=== PATIENT | male | born 1985 | race Caucasian/White ===

== ENCOUNTER 2020-10-06 06:57 | Inpatient (IN) | payer SELFPAY ==
[2020-10-06] VITALS (42 sets, daily range): BP systolic 90–180; BP diastolic 56–124; PULSE 74–142; RESP 15–33; TEMP 36.7–36.9; O2SAT 96–100; BMI 25.7
--- NOTE | ~2020-10-06 | CT_ITS ---
EXAMINATION: CT brain wo con EXAM DATE: 10/06/2020 08:14 INDICATION: hallucinations, change in behavior, headache . TECHNIQUE: Spiral CT of the head was performed without contrast. Axial, coronal and sagittal images were reviewed. The dose-length product (DLP) for this examination was 605.33 mGy-cm. The exposure w as tailored according to patient size, and iterative reconstruction (ASIR) was used as additional dos e reduction technique. There is no prior study for comparison. FINDINGS: There is no acute intraparenchymal hemorrhage. No evidence of intraparenchymal brain mass lesion. No evidence of acute infarction. There is no mass effect or midline shift. The ventricles are normal in size. There are no extra-axial collections. There are no acute calvarial fractures. T he orbits are unremarkable. Soft tissue is unremarkable. The visualized sinuses and mastoid air aman ls are well aerated. IMPRESSION: 1. No acute intracranial findings. Reviewed, dictated and finalized at location A. LABOR DELIVERY
--- NOTE | ~2020-10-06 | US_ITS ---
EXAMINATION: US abdomen limited EXAM DATE: 10/07/2020 08:56 INDICATION: Elevated liver function tests. TECHNIQUE: Multiple grayscale and Doppler images of the abdomen right upper quadrant were obtained (b y a technologist who performed the scan) and subsequently reviewed. There is no prior study for aline enriquez. FINDINGS: The pancreatic head and body are normal in appearance. The pancreatic tail is not visualized. There is echogenic liver parenchyma, hepatic steatosis. There are no focal liver lesions identified. Th ere is no evidence of intrahepatic biliary duct dilation. Portal venous flow was seen in the hepatop edal, normal direction and has normal Doppler waveform. No right-sided hydronephrosis. Common bile duct measures 3 mm, which is normal. Gallbladder is moderately distended. There is no cho lelithiasis but there is evidence of gallbladder debris. There is a small anechoic pocket between the gallbladder and liver margin, could be a fold in the gallbladder. Pericholecystic fluid typically no t this well contained. Technologist performing exam reports patient did not demonstrate sonographic M urphy's sign. Please note that this sign is less reliable in patients who have received pain medicat ion. IMPRESSION: 1. Distended gallbladder with debris but no wall thickening. Gallbladder fold versus contained peric holecystic fluid. No sonographic Paris's sign or biliary dilation. 2. Hepatic steatosis. Reviewed, dictated and finalized at location A. LOPMENT COACH IMPRESSION: 1. Distended gallbladder with debris but no wall thickening. Gallbladder fold versus contained pericholecystic fluid. No sonographic Paris's sign or biliary dilation. 2. Hepatic steatosis.
--- NOTE | ~2020-10-06 | XR_ITS ---
EXAMINATION: XR chest 1V portable EXAM DATE: 10/06/2020 07:58 INDICATION: Change in behavior. Hallucinations. Headache. TECHNIQUE: Portable AP frontal chest x-ray was obtained. There is no prior study for comparison. FINDINGS: The lungs are clear. There are no pleural effusions. The cardiomediastinal silhouette is within normal limits. There is no pneumothorax suspected. The bones and soft tissues are unremarkab le. IMPRESSION: Normal chest x-ray exam. Reviewed, dictated and finalized at location A. ENFORCEMENT AGENT IMPRESSION: Normal chest x-ray exam.
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
--- NOTE | 2020-10-06 07:30 | ECG_ITS ---
Measurements Intervals Gardner Rate: 119 P: 67 CO: 152 QRS: 38 QRSD: 87 T: 36 QT: 344 QTc: 485 Interpretive Statements SINUS TACHYCARDIA DELAYED PRECORDIAL R/S TRANSITION NONSPECIFIC T-WAVE ABNORMALITY- INF/HIGH LAT LEADS BASELINE ARTIFACT- II, III ABNORMAL ECG Electronically Signed On 10-06-2020 11:14:51 DIRECTOR [employer]OPH[employer]ORATORY by Kermit Jones D.O.
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
[2020-10-06] MEDS: SODIUM CHLORIDE 0.9% IV 1,000 ML 999 ML IV CONT ×3 (07:47→17:01)
[2020-10-06 07:54] LABS: Basophils Percent Auto 0.4 % (0.2-1.2); Eosinophils Percent Auto 0.2 % (0-4.4); Hematocrit 42.2 % (42.0-52.0); Hemoglobin 15.1 g/dL (14.0-18.0); Immature Granulocyte Absolute 0.03 K/mm3 (0.00-0.031); Immature Granulocyte Percent A 0.3 % (0-0.5); Lymphocytes Absolute Auto 1.46 K/mm3 (0.9-3.2); Lymphocytes Percent Auto 15.7 % (18.3-44.2); Mean Corpuscular HGB Conc 35.8 g/dl (32-36); Mean Corpuscular Hemoglobin 33.9 pg (26-34); Mean Corpuscular Volume 94.6 fl (80-100); Mean Platelet Volume 10.9 fl (7.4-10.4); Monocytes Percent Auto 10.9 % (2.6-8.5); Neutrophils Absolute Auto 6.7 K/mm3 (1.3-6.7); Neutrophils Percent Auto 72.5 % (45.5-73.1); Platelet Count Result 130 k/mm3 (150-375); Red Blood Count 4.46 M/mm3 (4.6-6.20); Red Cell Distribution Width 12.1 % (11.5-14.5); White Blood Count 9.3 K/mm3 (4.5-10.0)
[2020-10-06 07:58] LABS: Add Urine Microscopic? YES; Appearance Urine Clear (Clear); Bacteria Urine Trace /hpf; Bilirubin Urine Negative (Negative); Blood Urine 1+ (Negative); Color Urine Yellow (Yellow); Glucose Urine UA Negative (Negative); Hyaline Casts Urine 20-29 /lpf; Ketones Urine Trace mg/dL (Negative); Leukocyte Esterase Ur Negative LEU/UL (Negative); Mucus Urine Rare /lpf; Nitrate Urine Negative (Negative); Protein Urine Negative (Negative); RBC Urine 0-2 /hpf (0-2); Specific Grav Ur 1.008 (1.001-1.035); Urobilinogen Urine Negative mg/dL (<2.0); WBC Urine 0-3 /hpf
[2020-10-06 08:00] LABS: Lactic Acid Reflex 1.9 mmol/L (0.7-2.1)
[2020-10-06 08:02] LABS: Alanine Aminotransferase 118 U/L (4-50); Albumin Level 4.7 g/dL (3.5-5.1); Alkaline Phosphatase 138 U/L (38-126); Anion Gap 20 mmol/L (8-16); Aspartate Amino Transferase 331 U/L (17-59); Bilirubin,Total 2.7 mg/dL (0.2-1.3); Blood Urea Nitrogen 26 mg/dL (9-20); Calcium 9.6 mg/dL (8.4-10.2); Carbon Dioxide 24 mmol/L (22-30); Chloride 90 mmol/L (98-107); Estimated CRCL calculation 89 ml/min; Estimated Glomerular Filt Rate > 60; Glucose 113 mg/dL (75-110); Lipase 392 U/L (23-300); Magnesium 1.4 mg/dL (1.6-2.3); Potassium 3.2 mmol/L (3.4-5.0); Sodium 134 mmol/L (137-145)
[2020-10-06 08:06] LABS: Acetaminophen < 10 ug/mL (10-30); Ethanol < 10 mg/dL (<10); Salicylate < 1.0 mg/dL (2-20)
[2020-10-06 08:14] LABS: INR 1.1; Prothrombin Time 14.7 Seconds (11.1-14.7)
[2020-10-06 08:15] LABS: Partial Thromboplastin Time 28.3 SECONDS (22.3-36.8)
[2020-10-06] MEDS: THIAMINE HCL INJ 100 MG, FOLIC ACID INJ 1 MG, MULTIVITAMINS-12 INJ VIAL 1 5 ML, MULTIVI... IV CONT (08:25)
[2020-10-06 08:31] LABS: Creatine Kinase 1091 U/L (55-170)
[2020-10-06 08:48] LABS: Amphetamine Screen Urine Negative (Negative); Barbiturate Screen Urine Negative (Negative); Benzodiazepines Screen Urine Positive (Negative); Cannabinoid Screen Urine Negative (Negative); Cocaine Screen Urine Negative (Negative); Methadone Screen Urine Negative (Negative); Opiate Screen Urine Negative (Negative); Phencyclidine Screen Urine Negative (Negative)
[2020-10-06] MEDS: LORazepam INJ (*CRX) 2 MG/ML VIAL IV PUSH ×3 (08:58→11:58)
[2020-10-06 09:48] LABS: Ammonia < 9 umol/L (9-30)
[2020-10-06] MEDS: POTASSIUM CHLORIDE 20 MEQ TABLET 40 MEQ PO (10:20)
--- NOTE | 2020-10-06 11:43 | PC.NURSE ---
patient chewed through iv tubing and pulled all moniter cords out of wall and tied them around bedding. found standing naked in center of room
[2020-10-06] MEDS: LORazepam INJ (*CRX) 2 MG/ML VIAL 1 MG IV PUSH ×2 (11:57→14:25)
--- NOTE | 2020-10-06 12:17 | PC.NURSE ---
patient continues to pull monitor leads from wall and wrapping them around objects in the room and getting up out of bed. sitter place at bedside
[2020-10-06] MEDS: SODIUM CHLORIDE 0.9% IV 1,000 ML 125 ML IV CONT (13:41)
[2020-10-06] MEDS: dexmedeTOMIDine 400 MCG/100 ML 400 MCG/100 ML BAG 9.11 MCG IV CONT (13:42)
--- NOTE | 2020-10-06 13:53 | ADMGEN ---
This patient, Jose Cruz Richmond, was admitted to Intensive Care Unit-12. Patient/family oriented to hospital policies and general routines including ID bracelet, bed and alarms, visiting hours, pain management, procedures, bathroom and other care routines, personal items, smoking policy, room service/diet, and visiting hours. Information on how to activate the Rapid Response Team has been discussed. Patient/Family are encouraged to report perceived risks to care and to ask questions if they do not understand what they are told or what they should do.
--- NOTE | 2020-10-06 14:22 | WPDCNINT ---
Assessment and Plan Assessment and plan (1) Alcohol withdrawal: Code(s): F10.239 - Alcohol dependence with withdrawal, unspecified Status: Acute Assessment and Plan: Patient drinks 2 pt of vodka bad days and then stops drinking. Last drink was on 09/30 or 10/03. Patient presented with hallucinations, tremulous, delusions. -was given Ativan 8 mg IV in the ER -started on Precedex infusion -continue Librium -will start folic acid and thiamine (2) Delusions: Code(s): F22 - Delusional disorders Status: Acute Assessment and Plan: To alcohol withdrawal and or ADD/depression with may be some component of schizophrenia (3) Hallucinations: Code(s): R44.3 - Hallucinations, unspecified Status: Acute Assessment and Plan: Likely due to alcohol withdrawal/DTs (4) Elevated CK: Code(s): R74.8 - Abnormal levels of other serum enzymes Status: Acute Assessment and Plan: Elevated CK levels likely secondary to dehydration, will give 2 more L of IV fluids (5) Hypokalemia: Code(s): E87.6 - Hypokalemia Status: Acute Assessment and Plan: Potassium repleted (6) Elevated LFTs: Code(s): R79.89 - Other specified abnormal findings of blood chemistry Status: Acute Assessment and Plan: Elevated LFTs likely secondary to alcohol liver disease -will obtain right upper quadrant ultrasound hepatitis panel -ammonia level < 9 (7) Elevated lipase: Code(s): R74.8 - Abnormal levels of other serum enzymes Status: Acute Assessment and Plan: Elevated lipase be related to dehydration, hypovolemia -will repeat in a.m. -patient does not exhibit any abdominal pain or signs of pancreatitis Additional Plan Code status: Full code Critical care time spent: 43 minutes Due to a high probability of clinically significant, life threatening deterioration, the patient required my highest level of preparedness to intervene emergently and I personally spent this critical care time directly and personally managing the patient. This critical care time included obtaining a history; examining the patient; pulse oximetry; ordering and review of studies; arranging urgent treatment with development of a management plan; evaluation of patient's response to treatment; frequent reassessment; and discussions with other providers. It was exclusive of separately billable procedures and treating other patients and teaching time. Please see Assessment and Plan section and the rest of the note for further information on patient assessment and treatment Music Store Manager Consult Note Consult date: 10/06/20 Time Seen: 13:55 Reason for consult: Alcohol withdrawal, delusions, hallucinations HPI: Jose Cruz Richmond is a 35 year old male history of ADHD, depression presented the ED on 10/06 of T was brought by his father for possible alcohol withdrawal. Patient has been having delusions, hallucinations. Patient states that he is out of his Adderall and Vyvanse, next refill is on 10/08. He states he had moved from parent's house to a different apartment, and not a good area of the town, he thinks that somebody may have taken his medications because they know it was high dollar amount. On bad days he drinks 2 pints of 35% vodka. On good days does not drink at all. Patient also hallucinating, paranoid due to the delusions. He is currently living with his parents, states his father is very strict. In the ER was seeing bugs going on him. According to his father was agitated last night and was pacing all night and has not slept in 5 days. Patient is tachycardic, hemodynamically stable. CT head was initial unremarkable for any acute intracranial abnormalities chest x-ray was clear. Urine drug screen was positive for benzos which she probably received in the ER. Patient was given 1 L IV fluids, CK levels were elevated, was transferred to the ICU on Precedex infusion. Patient was also
--- NOTE | 2020-10-06 14:36 | PM.IMHP ---
H&P: HPI History of Present Illness Date/Time: 10/06/20 14:36 Chief Complaint: Hallucinations Narrative: Jose Cruz Richmond is a 35 year old male with history of alcoholism and ADHD here for hallucinations from alcohol withdrawal. Patient is alert but confused thus unable to provide history. Majority history is obtained chart and from family. Per family: He lost his job 1 year ago. He has a lot of depression. Evicted from his apartment one month ago and currently living with his parents. Mother not sure how much the patient drinks. No alcohol since Friday because he went 'cold-turkey'. Patient does not talk about his addiction with his family. He has been out of Vyvanse and Adderall recently (prescription due to be refilled tomorrow but patient taking more than he should so ran out earlier). Patient not eating and not showering but somewhat better. Behavior became 'odd' about 2 days ago. Yesterday he was noted to be paranoid. Patient brought to the ED today for evaluation. In the ED, patient was tachycardic and hypertensive. CXR clear. CT brain was clear. LFTs elevated. AG 20. BUN 26 and Cr 1.2. He was given multiple doses Ativan. A banana bag was started. He was ultimately started on Precedex to the ICU. Patient follows with Dr Helms - Psychiatrist. Review of Systems Review of Systems: ROS unobtainable: Yes unobtainable due to mental status PMFSH Past Medical History Medical History (Updated 10/06/20 @ 16:42 by Lasohnda Sloan MD) ADHD Alcoholism /alcohol abuse History withdrawal seizures 2011 Depression History of duodenal ulcer Family History Family History (Updated 10/06/20 @ 15:08 by Jason Cummings MD) Father Hypertension Other Unknown family medical history Social History Social History (Updated 10/06/20 @ 15:09 by Jason Cummings MD) Social History: Patient currently lives with his mother and father. Lifelong nonsmoker. No history drug use. Full code. Alcohol use as mentioned above. He did mention at some point that he drinks 2 pints of vodka a day. Smoking status: Never smoker Alcohol intake: current Alcohol use details: 2 pints vodka daily Substance use: unknown Gender identity (if verbalized by the patient): Male Spiritual care concerns: No Meds Home Medications and Allergies Home Medications Medication Instructions Recorded Confirmed Type Unable to Obtain Home Medications 10/06/20 10/06/20 History chlordiazepoxide HCl 25 mg PO DIRECTED #12 cap 10/08/20 Rx Allergies Allergy/AdvReac Type Severity Reaction Status Date / Time No Known Allergies Allergy Unverified 09/27/12 20:31 Vital Signs Vital Signs - 24 hr 10/06/20 07:06 10/06/20 08:24 10/06/20 08:29 Temperature 98.0 F Pulse Rate 139 H 115 H 117 H Respiratory Rate 18 21 H 15 Blood Pressure 169/124 H 149/109 H Pulse Oximetry 99 98 10/06/20 08:30 10/06/20 08:31 10/06/20 08:45 Temperature Pulse Rate 116 H 118 H 110 H Respiratory Rate 20 17 18 Blood Pressure 163/118 H Pulse Oximetry 98 97 100 10/06/20 08:59 10/06/20 09:00 10/06/20 09:01 Temperature Pulse Rate 113 H 110 H 112 H Respiratory Rate 17 20 21 H Blood Pressure 163/117 H 165/116 H Pulse Oximetry 100 100 98 10/06/20 09:15 10/06/20 09:17 10/06/20 09:30 Temperature Pulse Rate 113 H 117 H 118 H Respiratory Rate 23 H 20 28 H Blood Pressure 149/109 H 135/103 H Pulse Oximetry 99 99 99 10/06/20 09:31 10/06/20 09:45 10/06/20 09:46 Temperature Pulse Rate 120 H 112 H 117 H Respiratory Rate 22 H 26 H 24 H Blood Pressure 143/101 H Pulse Oximetry 98 98 98 10/06/20 10:00 10/06/20 10:01 10/06/20 10:15 Temperature Pulse Rate 130 H 137 H 131 H Respiratory Rate 22 H 27 H 27 H Blood Pressure 180/123 H Pulse Oximetry 99 98 98 10/06/20 10:30 10/06/20 10:45 10/06/20 10:54 Temperature Pulse Rate 135 H 130 H 126 H Respiratory Rate 18 21 H 27 H Blood Pressure 13
[2020-10-06 15:31] LABS: Hepatitis B Surface Antigen Negative (Negative)
[2020-10-06 15:37] LABS: HAV RESULT Negative (Negative); Hepatitis B Core IgM Result Negative (Negative)
[2020-10-06 15:49] LABS: Hepatitis C Virus Antibody Negative (Negative)
[2020-10-06] MEDS: dexmedeTOMIDine 400 MCG/100 ML 400 MCG/100 ML BAG 22.7 MCG IV CONT (17:09)
[2020-10-06 18:22] LABS: Glucose Point of Care 117 (65-105)
[2020-10-06] MEDS: chlordiazePOXIDE (*CRX) 25 MG CAPSULE PO (23:03)
[2020-10-06] MEDS: dexmedeTOMIDine 400 MCG/100 ML 400 MCG/100 ML BAG 15.89 MCG IV CONT (23:04)
[2020-10-07] VITALS (12 sets, daily range): BP systolic 93–176; BP diastolic 63–103; PULSE 69–111; RESP 15–26; TEMP 36.1–36.9; O2SAT 93–100
[2020-10-07 00:03] LABS: Glucose Point of Care 166 (65-105)
[2020-10-07] MEDS: SODIUM CHLORIDE 0.9% IV 1,000 ML 125 ML IV CONT ×3 (02:56→23:03)
[2020-10-07 04:54] LABS: Basophils Absolute Auto 0.1 K/mm3 (0.0-0.1); Basophils Percent Auto 1.1 % (0.2-1.2); Eosinophils Absolute Auto 0.1 K/mm3 (0-0.3); Eosinophils Percent Auto 1.8 % (0-4.4); Hematocrit 30.5 % (42.0-52.0); Hemoglobin 10.7 g/dL (14.0-18.0); Immature Granulocyte Absolute 0.02 K/mm3 (0.00-0.031); Immature Granulocyte Percent A 0.4 % (0-0.5); Lymphocytes Absolute Auto 1.36 K/mm3 (0.9-3.2); Mean Corpuscular HGB Conc 35.1 g/dl (32-36); Mean Corpuscular Hemoglobin 34.1 pg (26-34); Mean Corpuscular Volume 97.1 fl (80-100); Mean Platelet Volume 10.7 fl (7.4-10.4); Monocytes Absolute Auto 0.4 K/mm3 (0.1-0.6); Monocytes Percent Auto 8.8 % (2.6-8.5); Neutrophils Absolute Auto 2.6 K/mm3 (1.3-6.7); Neutrophils Percent Auto 57.9 % (45.5-73.1); Platelet Count Result 90 k/mm3 (150-375); Red Blood Count 3.14 M/mm3 (4.6-6.20); Red Cell Distribution Width 12.4 % (11.5-14.5); White Blood Count 4.5 K/mm3 (4.5-10.0)
[2020-10-07 05:03] LABS: INR 1.1; Prothrombin Time 14.9 Seconds (11.1-14.7)
[2020-10-07 05:04] LABS: Partial Thromboplastin Time 29.1 SECONDS (22.3-36.8)
[2020-10-07 05:11] LABS: Potassium 3.3 mmol/L (3.4-5.0)
[2020-10-07 05:15] LABS: Alanine Aminotransferase 119 U/L (4-50); Albumin Level 3.2 g/dL (3.5-5.1); Alkaline Phosphatase 88 U/L (38-126); Anion Gap 9 mmol/L (8-16); Aspartate Amino Transferase 322 U/L (17-59); Bilirubin,Total 1.9 mg/dL (0.2-1.3); Blood Urea Nitrogen 24 mg/dL (9-20); Calcium 7.9 mg/dL (8.4-10.2); Carbon Dioxide 23 mmol/L (22-30); Chloride 104 mmol/L (98-107); Estimated CRCL calculation 148 ml/min; Estimated Glomerular Filt Rate > 60; Glucose 107 mg/dL (75-110); Lipase 328 U/L (23-300); Magnesium 1.8 mg/dL (1.6-2.3); Phosphorus 3.4 mg/dL (2.5-4.5); Sodium 136 mmol/L (137-145)
[2020-10-07] MEDS: chlordiazePOXIDE (*CRX) 25 MG CAPSULE PO ×4 (05:33→23:04)
[2020-10-07] MEDS: dexmedeTOMIDine 400 MCG/100 ML 400 MCG/100 ML BAG 13.62 MCG IV CONT (05:33)
[2020-10-07 05:37] LABS: Thyroid Stimulating Hormone 0.908 uIU/mL (0.465-4.680)
--- NOTE | 2020-10-07 08:28 | PM.IMPN ---
Progress Note: A&P Assessment and Plan (1) Alcohol withdrawal: Code(s): F10.239 - Alcohol dependence with withdrawal, unspecified Status: Acute Assessment and Plan: Patient has been admitted to the ICU and started on IV fluids after receiving a banana bag. Also started of Precedex and scheduled Librium. Thiamine and folate added. Continue Precedex and wean as he tolerates. CIWA better overnight. Ativan available prn and did require 2 doses yesterday. Continue seizure precautions. (2) Alcoholism /alcohol abuse: Code(s): F10.20 - Alcohol dependence, uncomplicated Status: Inactive Assessment and Plan: Patient was educated about the benefits of abstaining from alcohol. Patient interested in stopping drinking. Case management to discuss alcohol treatment options. (3) Hallucinations: Code(s): R44.3 - Hallucinations, unspecified Status: Acute Assessment and Plan: Review related to above. Symptoms appear to have resolved. Continue to monitor. (4) Elevated lipase: Code(s): R74.8 - Abnormal levels of other serum enzymes Status: Acute Assessment and Plan: Lipase 392 on admission. Slightly better today. No complaints of abdominal pain. Normal exam. Elevated lipase related to his alcoholism. (5) Elevated CK: Code(s): R74.8 - Abnormal levels of other serum enzymes Status: Acute Assessment and Plan: TCK 1091. Etiology unclear. No hx of recent seizure. Repeat pending. Suspect related to above. (6) Elevated LFTs: Code(s): R79.89 - Other specified abnormal findings of blood chemistry Status: Acute Assessment and Plan: Liver enzymes elevated on admission felt related to alcoholic hepatitis. Upper quadrant ultrasound is ordered. But no significant abdominal pain. Repeat levels about the same or slightly improved. This should continue to improve as he abstains from alcohol. Continue to follow. Follow-up on ultrasound result. (7) Delusions: Code(s): F22 - Delusional disorders Status: Acute Assessment and Plan: Related to above. Symptoms appeared to resolved. Continue to follow. Follow closely as Precedex is weaned. (8) Hypokalemia: Code(s): E87.6 - Hypokalemia Status: Acute Assessment and Plan: Potassium was slightly low on admission and about unchanged today. Continue to replace. (9) DVT prophylaxis: Code(s): Z29.9 - Encounter for prophylactic measures, unspecified Status: Acute Assessment and Plan: Plt count 90K felt related to the the alcoholism. Hold Lovenox and add SCDs Subjective Date/time seen: 10/07/20 08:28 Interval history: Date of service 10/07/2020 35yo male with ADHD and alcoholism here for acute alcohol withdrawal. Patient is alert and oriented x4 today. States his last drink was 10/01/20. He feels better today. Denies any nausea or vomiting. His hungry. Last time he was at alcohol rehab was about 6 years ago. He is not current with AA. He denies any chest pain, shortness of breath or abdominal pain. He denies any hallucinations or hearing voices. He denies having withdrawal seizures with the last being 2011. No issues overnight per nursing staff. Patient slept well. He remains on Precedex. He states he stopped drinking because his desire to not drink any further. Exam Narrative: Exam Narrative: AF 98.5 93/63 71 20 94% Gen - NARD lyiing almost flat in bed Chest - CTA Bilaterally CV - RRR S1/S2; telemetry showing no significant dysrhythmias Abd -soft. Nontender. Nondistended. No organomegaly. Ext -no pedal edema Neuro -alert and oriented x4. Speech is clear. Psych - calm and cooperative. Skin - warm and dry. No diaphoresis Objective Data Vital Signs Vital Signs: Vital Signs - 24 hr 10/06/20 08:29 10/06/20 08:30 10/06/20 08:31 Temperature Pulse Rate 117 H 116 H 118 H
[2020-10-07] MEDS: POTASSIUM CHLORIDE 20 MEQ TABLET 40 MEQ PO (09:10)
[2020-10-07] MEDS: THIAMINE HCL 200 MG/2 ML VIAL 100 MG IV PUSH (09:10)
[2020-10-07] MEDS: PANTOPRAZOLE SODIUM IV 40 MG VIAL IV PUSH (09:10)
[2020-10-07 09:31] LABS: Creatine Kinase 327 U/L (55-170)
[2020-10-07] MEDS: FOLIC ACID 1 MG/0.2 ML INJ IV PUSH (10:45)
[2020-10-07] MEDS: ACETAMINOPHEN 500 MG TABLET PO (12:45)
--- NOTE | 2020-10-07 12:56 | WPDINTPN ---
Progress Note: A&P Assessment and Plan (1) Alcohol withdrawal: Code(s): F10.239 - Alcohol dependence with withdrawal, unspecified Status: Acute Assessment and Plan: Patient drinks 2 pt of vodka bad days and then stops drinking. Last drink was on 09/30 or 10/03. Patient presented with hallucinations, tremulous, delusions. -was given Ativan 8 mg IV in the ER -OFF Precedex - NO more delusions or Hallucinations -continue Librium -continue folic acid and thiamine (2) Delusions: Code(s): F22 - Delusional disorders Status: Acute Assessment and Plan: RESOLVED Likely related to alcohol withdrawal and or ADD/depression with may be some component of schizophrenia (3) Hallucinations: Code(s): R44.3 - Hallucinations, unspecified Status: Acute Assessment and Plan: RESOLVED Likely due to alcohol withdrawal/DTs (4) Elevated CK: Code(s): R74.8 - Abnormal levels of other serum enzymes Status: Acute Assessment and Plan: Elevated CK levels likely secondary to dehydration, adequately fluid rescusitated CK level improving (5) Hypokalemia: Code(s): E87.6 - Hypokalemia Status: Acute Assessment and Plan: Potassium repleted (6) Elevated LFTs: Code(s): R79.89 - Other specified abnormal findings of blood chemistry Status: Acute Assessment and Plan: Elevated LFTs likely secondary to alcohol liver disease -RUQ u/s 10/07: Distended gallbladder with debris but no wall thickening. Gallbladder fold versus contained pericholecystic fluid. No sonographic Paris's sign or biliary dilation. 2. Hepatic steatosis. -hepatitis panel negative -ammonia level < 9 (7) Elevated lipase: Code(s): R74.8 - Abnormal levels of other serum enzymes Status: Acute Assessment and Plan: Elevated lipase be related to dehydration, hypovolemia -minimally elevated -patient does not exhibit any abdominal pain or signs of pancreatitis Additional Plan Code status: Full code Critical care time spent: 31 minutes Due to a high probability of clinically significant, life threatening deterioration, the patient required my highest level of preparedness to intervene emergently and I personally spent this critical care time directly and personally managing the patient. This critical care time included obtaining a history; examining the patient; pulse oximetry; ordering and review of studies; arranging urgent treatment with development of a management plan; evaluation of patient's response to treatment; frequent reassessment; and discussions with other providers. It was exclusive of separately billable procedures and treating other patients and teaching time. Please see Assessment and Plan section and the rest of the note for further information on patient assessment and treatment Subjective Date/time seen: 10/07/20 12:56 Interval history: Reason for consult: Alcohol withdrawal, delusions, hallucinations 10/07: Pt is awake, alert, oriented x3, states he slept well. Ate his breakfast. Denies hallucinations and delusions. OFF Precedex. UO has been good, afebrile, hemodynamically stable.No complaints Review of Systems Review of Systems: All systems reviewed & are unremarkable except as noted in HPI and below Exam Const: General: comfortable and no acute distress HENMT: Mouth: Yes dry mucous membranes Eyes: Sclera: sclerae normal Pupils: Equal, round and reactive pupils present Neck: Neck: supple Resp: Effort & Inspection: normal respiratory effort Auscultation: clear to auscultation bilaterally Cardio: Rate: regular rate and tachycardic GI: Inspection: non-distended GI Palp: Yes Soft to palpation and No Tenderness to palpation present (GI) Auscultation: normal bowel sounds : Other: Deferred Skin: General skin exam: normal color and no rashes or lesions noted Neuro: Cranial nerves: Yes Equal, round and reactive pupils presen
--- NOTE | 2020-10-07 15:23 | PC.NURSE ---
This patient, Jose Cruz Richmond, was transferred to [[address] [place] [address] ] on 10/07/20 at 1523. Personal belongings sent with patient. Report given to [baron lopez ]. Appropriate documentation sent with patient.
--- NOTE | 2020-10-07 15:53 | PC.NURSE ---
This patient, Jose Cruz Richmond, was received from ICU on 10/07/20 at 1520. Patient/family oriented to unit policies and routines
[2020-10-08] VITALS (7 sets, daily range): BP systolic 159–184; BP diastolic 93–108; PULSE 102–109; RESP 16–18; TEMP 36.3–36.6; O2SAT 98
[2020-10-08] MEDS: LORazepam INJ (*CRX) 2 MG/ML VIAL 1 MG IV PUSH (01:39)
[2020-10-08 06:19] LABS: Hematocrit 30.4 % (42.0-52.0); Mean Corpuscular HGB Conc 36.2 g/dl (32-36); Mean Corpuscular Hemoglobin 34.6 pg (26-34); Mean Corpuscular Volume 95.6 fl (80-100); Mean Platelet Volume 10.1 fl (7.4-10.4); Platelet Count Result 114 k/mm3 (150-375); Red Blood Count 3.18 M/mm3 (4.6-6.20); Red Cell Distribution Width 12.2 % (11.5-14.5); White Blood Count 5.5 K/mm3 (4.5-10.0)
[2020-10-08 06:48] LABS: Alanine Aminotransferase 149 U/L (4-50); Albumin Level 3.1 g/dL (3.5-5.1); Alkaline Phosphatase 145 U/L (38-126); Anion Gap 6 mmol/L (8-16); Aspartate Amino Transferase 318 U/L (17-59); Bilirubin,Total 1.2 mg/dL (0.2-1.3); Blood Urea Nitrogen 7 mg/dL (9-20); Carbon Dioxide 26 mmol/L (22-30); Chloride 105 mmol/L (98-107); Creatine Kinase 232 U/L (55-170); Estimated CRCL calculation 170 ml/min; Estimated Glomerular Filt Rate > 60; Glucose 108 mg/dL (75-110); Lipase 418 U/L (23-300); Potassium 2.9 mmol/L (3.4-5.0); Sodium 137 mmol/L (137-145)
[2020-10-08] MEDS: chlordiazePOXIDE (*CRX) 25 MG CAPSULE PO ×2 (07:16→11:28)
[2020-10-08] MEDS: SODIUM CHLORIDE 0.9% IV 1,000 ML 125 ML IV CONT (07:17)
[2020-10-08] MEDS: POTASSIUM CHLORIDE 20 MEQ TABLET 40 MEQ PO (10:22)
[2020-10-08] MEDS: PANTOPRAZOLE SODIUM IV 40 MG VIAL IV PUSH (10:24)
[2020-10-08] MEDS: THIAMINE HCL 200 MG/2 ML VIAL 100 MG IV PUSH (10:24)
[2020-10-08] MEDS: FOLIC ACID 1 MG/0.2 ML INJ IV PUSH (10:31)
--- NOTE | 2020-10-08 12:29 | PM.DS ---
DS: Admitting Diagnosis Admitting Diagnosis Admitting Diagnosis: Hallucinations DS: Discharge Diagnosis Discharge Diagnosis (1) Alcohol withdrawal: Code(s): F10.239 - Alcohol dependence with withdrawal, unspecified Status: Acute Assessment and Plan: Patient presented with hallucinations and was felt to have alcohol withdrawal. He was admitted to the ICU and started on IV fluids after receiving a banana bag. He was also started of Precedex and scheduled Librium. Thiamine and folate added. Mental status improved. We weaned him off the Precedex as he tolerated. Monitored with CIWA protocol. His last drink was 10/01. CIWA mostly 0-1 over the past 24 hours. (2) Alcoholism /alcohol abuse: Code(s): F10.20 - Alcohol dependence, uncomplicated Status: Inactive Assessment and Plan: Patient was educated about the benefits of abstaining from alcohol. Patient interested in stopping drinking. Case management to discuss alcohol treatment options. (3) Hallucinations: Code(s): R44.3 - Hallucinations, unspecified Status: Acute Assessment and Plan: Related to above. Patient alert and oriented. Symptoms have resolved. (4) Elevated lipase: Code(s): R74.8 - Abnormal levels of other serum enzymes Status: Acute Assessment and Plan: Lipase 392 on admission. Lipase checked serially and about the same. No complaints of abdominal pain. Eating normally. Normal exam. Doubt pancreatitis. Elevated lipase related to his alcoholism. Repeat as outpatient. (5) Elevated CK: Code(s): R74.8 - Abnormal levels of other serum enzymes Status: Acute Assessment and Plan: TCK 1091. Etiology unclear. No hx of recent seizure. Repeat levels down to 232. Suspect related to above. (6) Elevated LFTs: Code(s): R79.89 - Other specified abnormal findings of blood chemistry Status: Acute Assessment and Plan: Liver enzymes elevated on admission felt related to alcoholic hepatitis. Upper quadrant ultrasound showing distended gallbladder with debris but no wall thickening and hepatic steatosis. But no significant abdominal pain. Hepatitis panel negative. Repeat levels showing AST trending down, Total Bili normalized but ALT slightly higher. ALT probably lagging behind and this should continue to improve as he abstains from alcohol. Continue to follow as outpatient. Thrombocytopenia noted at 130K that worsened before improving. [place] related to the toxic effects of alcohol. Repeat as outpatient. (7) Delusions: Code(s): F22 - Delusional disorders Status: Acute Assessment and Plan: Related to above. Symptoms have resolved. (8) Hypokalemia: Code(s): E87.6 - Hypokalemia Status: Acute Assessment and Plan: Potassium was slightly low on admission and was replaced. Some related to the IV fluids. DS: Summary Hospital Course Reason for hospitalization: 35yo male with alcoholism here for hallucinations related to alcohol withdrawal. Please see H&P for details. Hospital Course: Please see above for details of the hospital course. Status at Discharge Cognitive/behavioral status at discharge: PATIENT IS STABLE FOR DISCHARGE. Time Spent with Patient Time attestation: Total time spent providing and/or coordinating discharge services: 35 minutes Time spent: Greater than 30 minutes Specific discharge activities: patietn education Exam Narrative: Exam Narrative: AF 97.4 159/99 102 18 98% ra Gen - NARD Chest - CTA Bilaterally CV - RRR S1/S2 Abd -soft. Nontender. Nondistended. Ext -no pedal edema Psych - calm and cooperative. Skin - warm and dry. No diaphoresis DS: Data Data Completed and Pending Labs on day of discharge: Labs from last 24 hours 10/08/20 10/08/20 06:01 06:01 WBC 5.5 RBC 3.18 L Hgb 11.0 L Hct 30.4 L MCV 95.6 MCH 34.6 H MCHC 3
--- NOTE | 2020-10-08 15:11 | PC.NURSE ---
1400 patient voiced that he has already has his flu vaccine this season.
== END 2020-10-08 14:25 | disposition home or self-care (01) | DRG 775 ==
LOC: ANHED 08:16 → ANHICU 12:46 → ANH3MED 10-07 15:35
PROVIDERS: Internal Medicine; Admitting Provider Internal Medicine; Emergency Provider General Practice; Visit Provider Internal Medicine
DX: F10.231 Alcohol dependence with withdrawal delirium (principal); F10.251 Alcohol dependence with alcohol-induced psychotic disorder with hallucinations; E87.6 Hypokalemia; D69.59 Other secondary thrombocytopenia; F90.9 Attention-deficit hyperactivity disorder, unspecified type; K70.10 Alcoholic hepatitis without ascites
CPT/HCPCS: 36415; 70450; 71045; 76705; 80053; 80074; 80307; 81001; 82140; 82550; 83605; 83690; 83735; 84100; 84443; 85025; 85027; 85055; 85610; 85730; 93005; 96361; 96365; 96366; 96375; 99285; A9270; C9113; J2060; J3411; J3475; J7030

== ENCOUNTER 2021-01-09 23:19 | Inpatient (IN) | payer MEDICAID, SELFPAY ==
--- NOTE | ~2021-01-09 | XR_ITS ---
EXAMINATION: XR chest 1V portable 01/10/2021 08:43 INDICATION: Transient alteration of awareness. PROCEDURE: AP portable chest COMPARISON: 10/06/2020 FINDINGS: The lungs are clear. There is crowding of the pulmonary vessels due to expiratory image. Th e cardiomediastinal silhouette is within normal limits. There are no pleural effusions. There is no pneumothorax suspected. IMPRESSION: 1: NO ACUTE CARDIOPULMONARY DISEASE. Reviewed, dictated and finalized at location B.
--- NOTE | ~2021-01-09 | CT_ITS ---
EXAMINATION: CT abdomen pelvis wo con DATE: 01/10/2021 09:01 INDICATION: Altered mental status. Drop in hematocrit. TECHNIQUE: Computed tomography (CT) of the abdomen and pelvis was performed without intravenous contr ast. The dose-length product was 1445.48 mGy-cm. Automated exposure control and iterative reconstruct ion technique were employed. COMPARISON: Limited abdominal ultrasound dated 10/07/2020 FINDINGS: There is dependent atelectasis. Heart size is normal. No significant pleural or pericardial effusion. No significant vascular abnormality. There is fatty infiltration of the liver. The spleen, pancreas, left adrenal gland and kidneys are un remarkable. There is a 3.8 cm right adrenal mass containing macroscopic fat measuring -15 Hounsfield units centrally with peripheral coarse calcifications, likely complicated adrenal myelolipoma. There is debris within the gallbladder lumen which may represent sludge or stones. Nonobstructive bowel gas pattern. No lymphadenopathy. There is a fat-containing umbilical hernia. No free air or free fluid. There is Welch catheter in the bladder. No retroperitoneal hemorrhage. No will e air or free fluid. No acute osseous abnormality. IMPRESSION: 1. No acute abdominal abnormality. 2: Hepatic steatosis. 3: 3.8 cm right adrenal mass containing macroscopic fat measuring -15 Hounsfield units centrally with peripheral coarse calcifications, likely complicated adrenal myelolipoma. Reviewed, dictated and finalized at location B. IMPRESSION: 1. No acute abdominal abnormality. 2: Hepatic steatosis. 3: 3.8 cm right adrenal mass containing macroscopic fat measuring -15 Hounsfiel d units centrally with peripheral coarse calcifications, likely complicated adr enal myelolipoma.
--- NOTE | ~2021-01-09 | XR_ITS ---
XR chest 1V portable 01/12/2021 16:26 Indication: Fever Procedure: AP portable chest Comparison: 01/10/2021 Findings: There are bilateral perihilar infiltrates with peribronchial thickening. Small left effusio n. No pneumothorax. Heart size is normal. No acute osseous abnormality. Impression: 1: Bilateral perihilar infiltrates, suspicious for pneumonia. Edema less favored. 2: Small left pleural effusion. Reviewed, dictated and finalized at location B. Impression: 1: Bilateral perihilar infiltrates, suspicious for pneumonia. Edema less favore d. 2: Small left pleural effusion.
--- NOTE | ~2021-01-09 | US_ITS ---
US abdomen limited INDICATION: Hepatitis PROCEDURE: Realtime right upper abdominal ultrasound. COMPARISON: CT dated 01/10/2021 FINDINGS: The pancreas is normal without focal mass or pancreatic ductal dilation. Liver echotexture is increased, consistent with fatty infiltration. Gallbladder contains hypoechoic sludge. There is pericholecystic fluid. The gallbladder is normal without stones, gallbladder wall thickening or pericholecystic fluid. Comm on bile duct measures 3 mm. IMPRESSION: 1: Gallbladder sludge with pericholecystic fluid. Consider acalculous cholecystitis in the appropriat e clinical setting. 2: Hepatic steatosis. Reviewed, dictated and finalized at location B. IMPRESSION: 1: Gallbladder sludge with pericholecystic fluid. Consider acalculous cholecyst itis in the appropriate clinical setting. 2: Hepatic steatosis.
--- NOTE | ~2021-01-09 | CT_ITS ---
EXAMINATION: CT brain wo con DATE: 01/10/2021 09:01 INDICATION: Altered mental status TECHNIQUE: Computed tomography (CT) of the head was performed without intravenous contrast. Sagittal and coronal reconstructions were performed. The mA was adjusted according to patient size. Iterative reconstruction technique was employed. The dose-length product was 681.00 mGy-cm. COMPARISON: head CT dated 10/06/2020 FINDINGS: No fracture. No acute intracranial hemorrhage, acute infarction or abnormal extra axial fluid collect ion. Symmetric prominence of the sulci consistent mild diffuse cerebral volume loss which is dispropo rtionate for age. Ventricles are normal and symmetric. No mass/mass effect. The orbits, paranasal si nuses and mastoid air cells are normal. IMPRESSION: 1. No acute intracranial process. 2. Diffuse mild cerebral volume loss which is disproportionate to age. Reviewed, dictated and finalized at location A.
[2021-01-09 23:22] VITALS: PULSE 114; RESP 18
--- NOTE | 2021-01-09 23:23 | ED.AMS ---
HPI - Altered Mental Status General Chief Complaint: Unspecified Stated Complaint: ams Time Seen by Provider: 01/09/21 23:23 Source: patient and EMS Mode of arrival: EMS Limitations: altered mental status History of Present Illness HPI narrative: Patient is a 35-year-old male with a history of alcoholism who presents for evaluation of altered mental status. Patient was found by police throwing bricks at a vehicle that did not belong to him. PD called by trade recruiter of the vehicle who stated he did not know the patient. He found the patient to be altered, thus EMS was called. EMS noted patient to have yellowing of the eyes, seemed intermittently confused and possibly hallucinating. Vital signs stable on scene. Patient agreed to be transported to our facility. Patient is currently tangential in his speech, he is able to identify that we are at the hospital and that is Friday. He is oriented to time. He is denying any complaints of pain. He states he last drank alcohol over 24 hours ago. He denies any drug use. He reported to me that he was throwing bricks at the car to prevent it from being stolen, when I questioned who was trying to steal it he cannot give me the name of anybody. Related Data Home Medications Medication Instructions Recorded Confirmed dextroamphetamine-amphetamine 5 mg PO DAILY 01/09/21 [Adderall] Allergies Allergy/AdvReac Type Severity Reaction Status Date / Time No Known Allergies Allergy Unverified 09/27/12 20:31 Review of Systems Review of Systems: Narrative: CONSTITUTIONAL: Denies fever, reports chills EYES: Denies visual changes, redness, or discharge. ENT: Denies rhinorrhea, congestion, sore throat, or otalgia. CARDIOVASCULAR: Denies chest pain, palpitations, or edema. RESPIRATORY: Denies cough or dyspnea. GASTROINTESTINAL: Denies abdominal pain, reports nausea GENITOURINARY: Denies dysuria or hematuria. SKIN: Reports bruising to left flank MUSCULOSKELETAL: Denies back pain, joint pain, reports left leg soreness NEUROLOGIC: Denies headache, numbness, or weakness. [facility] Past Medical History Medical History ADHD Alcoholism /alcohol abuse History withdrawal seizures 2011 Depression History of duodenal ulcer Family History Family History (Updated 10/06/20 @ 15:08 by Jason Cummings MD) Father Hypertension Other Unknown family medical history Social History Social History Social History: Patient currently lives with his mother and father. Lifelong nonsmoker. No history drug use. Full code. Alcohol use as mentioned above. He did mention at some point that he drinks 2 pints of vodka a day. Smoking status: Never smoker Alcohol intake: current Substance use: unknown Gender identity (if verbalized by the patient): Male Spiritual care concerns: No Exam Narrative: Exam Narrative: GENERAL: Awake, alert, chronically ill appearing, conversant, anxious appearing HEAD: Normocephalic, atraumatic. EYES: PERRLA and EOMI. scleral icterus bilaterally. ENT: Nares clear, no rhinorrhea or epistaxis. Mucous membranes dry. NECK: Supple. CHEST: No respiratory distress, breathing even and non labored HEART: Tachycardic rate, sinus rhythm ABDOMEN:Non distended, non tender EXTREMITIES: Normal range of motion. Extensive ecchymoses to the left lower extremity, compartments are soft, nontender, no blistering, DP pulse 2+ Rectum: Good tone, no gross blood, guaic negative SKIN: Jaundiced, cool, dry, pale NEURO:No focal deficits. Alert and oriented x3, no focal deficits Course Vital Signs Vital signs: Vital Signs Pulse Rate 114 H 01/09/21 23:22 Respiratory Rate 18 01/09/21 23:22 Pulse Rate 106 H 01/10/21 01:15 Respiratory Rate 16 01/10/21 01:50 Blood Pressure 164/93 H 01/10/21 00:31 Pulse Oximetry 100 01/10/21 01:50 MDM - Altered Mental Status
[2021-01-09 23:24] VITALS: BP 144/117; PULSE 108; RESP 18; O2SAT 98
[2021-01-09 23:30] VITALS: PULSE 109; RESP 17
[2021-01-09 23:31] VITALS: BP 176/82; PULSE 109; RESP 27; O2SAT 96
[2021-01-09 23:33] VITALS: PULSE 104
--- NOTE | 2021-01-09 23:33 | PC.NURSE ---
PD in room. PD states patient was found trying to steal a car. Per PD, digital court reporter of vehicle did not know the patient. Patient reports he was trying to get into his own car after throwing brick into window. PD signed petition for involuntary admission.
[2021-01-09 23:45] VITALS: PULSE 115; RESP 14; O2SAT 100
--- NOTE | 2021-01-09 23:48 | ECG_ITS ---
Measurements Intervals [place] Rate: 116 P: 45 GA: 154 QRS: 22 QRSD: 96 T: 30 QT: 357 QTc: 497 Interpretive Statements SINUS TACHYCARDIA VOLTAGE CRITERIA FOR LVH BORDERLINE ST-T WAVE ABNORMALITY- DIFFUSE LEADS ABNORMAL ECG Electronically Signed On 01-10-2021 6:55:26 CDT by Kermit Jones D.O.
[2021-01-10] VITALS (39 sets, daily range): BP systolic 80–182; BP diastolic 55–99; PULSE 75–129; RESP 8–29; TEMP 36.1–37.1; O2SAT 94–100; BMI 24.2
--- NOTE | 2021-01-10 00:16 | PC.NURSE ---
Patient refusing to go to radiology at this time. Patient states he just received a CT scan and does not want another. Patient educated on need of CT and Xrays. EDP Lorena notified.
[2021-01-10] MEDS: LORazepam INJ (*CRX) 2 MG/ML VIAL 1 MG IV PUSH ×2 (00:37→02:13)
[2021-01-10] MEDS: SODIUM CHLORIDE 0.9% IV 1,000 ML 999 ML IV CONT (00:38)
[2021-01-10 00:44] LABS: Lactic Acid Reflex 3.8 mmol/L (0.7-2.1)
[2021-01-10 00:48] LABS: Basophils Percent Auto 0.4 % (0.2-1.2); Eosinophils Percent Auto 0.3 % (0-4.4); Hematocrit 21.9 % (42.0-52.0); Hemoglobin 7.8 g/dL (14.0-18.0); Immature Granulocyte Absolute 0.22 K/mm3 (0.00-0.031); Immature Granulocyte Percent A 2.3 % (0-0.5); Lymphocytes Percent Auto 10.4 % (18.3-44.2); Mean Corpuscular HGB Conc 35.6 g/dl (32-36); Mean Corpuscular Volume 98.2 fl (80-100); Mean Platelet Volume 10.6 fl (7.4-10.4); Monocytes Absolute Auto 1.7 K/mm3 (0.1-0.6); Monocytes Percent Auto 17.7 % (2.6-8.5); Neutrophils Absolute Auto 6.6 K/mm3 (1.3-6.7); Neutrophils Percent Auto 68.9 % (45.5-73.1); Nucleated Red Blood Cells Absolute Auto 0.2 K/mm3 (0.0-0.012); Nucleated Red Blood Cells Perc 1.9 % (0.0-0.2); Platelet Count Result 196 k/mm3 (150-375); Red Blood Count 2.23 M/mm3 (4.6-6.20); Red Cell Distribution Width 14.7 % (11.5-14.5); White Blood Count 9.6 K/mm3 (4.5-10.0)
[2021-01-10 00:49] LABS: Ethanol < 10 mg/dL (<10)
[2021-01-10] MEDS: THIAMINE HCL INJ 100 MG, FOLIC ACID INJ 1 MG, MULTIVITAMINS-12 INJ VIAL 1 5 ML, MULTIVI... IV CONT (00:52)
[2021-01-10 01:50] LABS: Add Urine Microscopic? YES; Appearance Urine Cloudy (Clear); Bilirubin Urine 1+ (Negative); Blood Urine 2+ (Negative); Color Urine Amber (Yellow); Glucose Urine UA 1+ mg/dL (Negative); Ketones Urine Trace mg/dL (Negative); Leukocyte Esterase Ur Negative LEU/UL (Negative); Mucus Urine Rare /lpf; Nitrate Urine Negative (Negative); Protein Urine 2+ mg/dL (Negative); Specific Grav Ur 1.023 (1.001-1.035); Squamous Epithelial Cell Urine Rare /hpf (Few); WBC Urine 21-30 /hpf
[2021-01-10 02:18] LABS: Alanine Aminotransferase 88 U/L (4-50); Albumin Level 4.5 g/dL (3.5-5.1); Alkaline Phosphatase 194 U/L (38-126); Anion Gap 15 mmol/L (8-16); Aspartate Amino Transferase 426 U/L (17-59); Bilirubin,Total 6.3 mg/dL (0.2-1.3); Blood Urea Nitrogen 29 mg/dL (9-20); Calcium 9.7 mg/dL (8.4-10.2); Carbon Dioxide 29 mmol/L (22-30); Chloride 88 mmol/L (98-107); Estimated CRCL calculation 57 ml/min; Estimated Glomerular Filt Rate 41; Glucose 136 mg/dL (75-110); Potassium 2.5 mmol/L (3.4-5.0); Sodium 132 mmol/L (137-145)
[2021-01-10 02:21] LABS: Barbiturate Screen Urine Negative (Negative); Benzodiazepines Screen Urine Positive (Negative)
[2021-01-10 02:24] LABS: Amphetamine Screen Urine Positive (Negative); Cocaine Screen Urine Negative (Negative); Methadone Screen Urine Negative (Negative); Opiate Screen Urine Negative (Negative); Phencyclidine Screen Urine Negative (Negative)
--- NOTE | 2021-01-10 02:30 | PC.NURSE ---
Per EDP Bertkelechi via verbal order read-back, hang banana bag by gravity. Infusion rate increased at this time.
[2021-01-10] MEDS: POTASSIUM CHLORIDE 20 MEQ TABLET 40 MEQ PO (02:33)
[2021-01-10] MEDS: PANTOPRAZOLE SODIUM IV 40 MG VIAL IV PUSH ×2 (02:42→16:37)
[2021-01-10] MEDS: AMPICILLIN SULB 1.5 GM/NS 50ML 1.5 GM/50 ML VIAL IVPB ×2 (03:06→09:29)
[2021-01-10 03:20] LABS: INR 1.1; Prothrombin Time 14.4 Seconds (11.1-14.7)
[2021-01-10 03:21] LABS: Partial Thromboplastin Time 31.5 SECONDS (22.3-36.8)
[2021-01-10 03:26] LABS: Reflex Lactic Acid Yes or No Add Lactic
--- NOTE | 2021-01-10 03:36 | PC.NURSE ---
Patient was found out of bed and began to have more severe auditory and visual hallucinations. Patient able to be redirected. Patient was placed back into bed.
--- NOTE | 2021-01-10 03:53 | PC.NURSE ---
Patient in room yelling, give me that food in the fridge right there, if not, give me the food in the trashcan. Patient also reports How much are you getting paid for this. The statistics don't add up. 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
--- NOTE | 2021-01-10 03:55 | PC.NURSE ---
Patient only alert to self at this time. Patient not answering questions appropriately. Patient belligerent to nursing staff and becoming more difficult to redirect.
--- NOTE | 2021-01-10 04:18 | PC.NURSE ---
This patient, Jose Cruz Richmond, was admitted to Intensive Care Unit-6. Patient/family oriented to hospital policies and general routines including ID bracelet, bed and alarms, visiting hours, pain management, procedures, bathroom and other care routines, personal items, smoking policy, room service/diet, and visiting hours. Information on how to activate the Rapid Response Team has been discussed. Patient/Family are encouraged to report perceived risks to care and to ask questions if they do not understand what they are told or what they should do.
--- NOTE | 2021-01-10 04:25 | ADMIMU ---
This patient, Jose Cruz Richmond, was admitted to IMU status, and placed in Intensive Care Unit-6 on 01/10/21 at 0410. Patient/family oriented to hospital policies and general routines including ID bracelet, bed and alarms, visiting hours, pain management, procedures, bathroom and other care routines, personal items, smoking policy, room service/diet, and visiting hours. Valuables list has been completed. Information on how to activate the Rapid Response Team has been discussed. Patient/Family are encouraged to report perceived risks to care and to ask questions if they do not understand what they are told or what they should do.
[2021-01-10] MEDS: LORazepam INJ (*CRX) 2 MG/ML VIAL IV PUSH (04:27)
[2021-01-10] MEDS: SODIUM CHLORIDE 0.9% IV 1,000 ML 125 ML IV CONT (04:27)
[2021-01-10] MEDS: dexmedeTOMIDine 400 MCG/100 ML 400 MCG/100 ML BAG 15.75 MCG IV CONT (04:43)
[2021-01-10 04:47] LABS: Ammonia 14 umol/L (9-30); Lactic Acid 2.3 mmol/L (0.7-2.1)
[2021-01-10 05:06] LABS: Magnesium 1.6 mg/dL (1.6-2.3)
--- NOTE | 2021-01-10 05:27 | PC.NURSE ---
Spoke with parents Quique to confirm pt medical history and medications.
--- NOTE | 2021-01-10 07:56 | PM.IMHP ---
H&P: HPI History of Present Illness Date/Time: 01/10/21 07:56 Chief Complaint: Narrative: 35 year old male with history of alcoholism and ADHD here for hallucinations from alcohol withdrawal. Patient is somnolent but confused thus unable to provide history. Majority history is obtained chart and from family. Per family: Patient was sober since last hospitalization in September when he was admitted for alcohol withdrawal. He was back at work but let go 3-4 weeks ago but family unsure why he was let go. Patient returned to alcohol since he lost his job. Patient has been living on his own for the past month. Family was in regular contact with patient up until 1 week ago. Patient was found drunk in a hotel room on 01/05 and family was called. The family brought the patient home and he began to have withdrawal symptoms on 01/07 with audio and visual hallucinations, confusion and paranoid symptoms ('Mary hiding under his bed'). He has been taking his Vyvanse and Adderall recently. He had improvement in his withdrawal symptoms enough to talk with his psychiatrist on 01/08 to have his prescriptions renewed. Last evening, the patient ate supper with family but still with odd behavior. Father states patient became 'angry' with them but he does not state why the patient was angry. Patient left the house around 8PM last night. Per ED notes: Patient that evening was found by police throwing bricks at a vehicle that did not belong to him. PD called by auto club safety program coordinator of the vehicle who stated he did not know the patient. He found the patient to be altered, thus EMS was called. EMS noted patient to have yellowing of the eyes, seemed intermittently confused and possibly hallucinating. Vital signs stable on scene. Patient agreed to be transported to our facility. Patient was tangential in his speech but was able to identify that we are at the hospital and that is Friday. He was oriented to time. He denied any complaints of pain. He states he last drank alcohol over 24 hours ago. He denied any drug use. He reported to ED provider that he was throwing bricks at the car to prevent it from being stolen, when I questioned who was trying to steal it he cannot give me the name of anybody. Patient was started on Precedex and admitted to the ICU for further care. Patient follows with Dr Helms - Psychiatrist. Review of Systems Review of Systems: ROS unobtainable: Yes unobtainable due to mental status PMFSH Past Medical History Medical History (Updated 01/13/21 @ 11:29 by Jason Cummings MD) Acute blood loss anemia ADHD Alcoholism /alcohol abuse History withdrawal seizures 2011 Depression Hematoma of left lower leg History of duodenal ulcer Family History Family History (Updated 10/06/20 @ 15:08 by Jason Cummings MD) Father Hypertension Other Unknown family medical history Social History Social History (Updated 01/10/21 @ 10:11 by Jason Cummings MD) Social History: Patient currently lives with his mother and father. Lifelong nonsmoker. No known history of drug use. Full code. Hx of alcoholism. Full code. His parents would make medical decisions for him if he is unable Smoking status: Unknown if ever smoked Alcohol intake: current Substance use: unknown Gender identity (if verbalized by the patient): Male Spiritual care concerns: No Meds Home Medications and Allergies Home Medications Medication Instructions Recorded Confirmed Type dextroamphetamine-amphetamine 10 mg PO DAILY 01/09/21 01/10/21 History [Adderall] lisdexamfetamine [Vyvanse] 70 mg PO QAM 01/10/21 01/10/21 History Allergies Allergy/AdvReac Type Severity Reaction Status Date / Time No Known Allergies Allergy Unverified 09/27/12 20:31 Vital Signs Vital Signs - 24 hr 01/09/21 23:22 01/09/21 23:24 01/09/21 23:30 Temperature Pulse Rate 114 H 108 H 109 H Respiratory Rate 18 18 17 Blood Pressure 144/117 H Pulse Ox
[2021-01-10] MEDS: MAGNESIUM SULF 1 GM/D5W 100 ML 1 GM/100 ML BAG IVPB (09:01)
--- NOTE | 2021-01-10 09:17 | WPDCNINT ---
Assessment and Plan Assessment and plan (1) Alcohol withdrawal: Qualifiers: Complication of substance-induced condition: with unspecified complication Qualified Code(s): F10.239 - Alcohol dependence with withdrawal, unspecified Code(s): F10.239 - Alcohol dependence with withdrawal, unspecified Status: Acute Assessment and Plan: He is currently on Precedex drip. Wean Precedex if tolerated. May use Ativan p.r.n. if needed. Currently he is NPO. May start Librium when he can take p.o.. Currently he is on banana bag. Thiamine and folate. Continue IV fluid resuscitation until he is NPO. CT head is pending. I will stop antibiotics as there is no clear source of infection. (2) Anemia: Qualifiers: Anemia type: other cause Other causes of anemia: other cause, not classified Qualified Code(s): D64.89 - Other specified anemias Code(s): D64.9 - Anemia, unspecified Status: Acute Assessment and Plan: Drop in H&H noted. He has significant bruise in the lower part of the abdomen as well as left lower extremity. Peripheral pulses are intact. I will get CT abdomen pelvis without contrast because of creatinine being elevated. Continue to monitor H&H. Check stool guaiac. Continue IV pantoprazole for now. (3) Alcoholic hepatitis: Code(s): K70.10 - Alcoholic hepatitis without ascites Status: Acute Assessment and Plan: Continue to trend LFTs. Right upper quadrant ultrasound. I will check ammonia level. (4) ZOILA (acute kidney injury): Code(s): N17.9 - Acute kidney failure, unspecified Status: Acute Assessment and Plan: Continue IV fluid resuscitation. Continue to monitor renal parameters and electrolytes. Strict intake output record and daily weight. (5) Acute hypokalemia: Code(s): E87.6 - Hypokalemia Status: Acute Assessment and Plan: Replaced. Recheck BMP today showed significant hypokalemia. Potassium and magnesium will be repleted again today. (6) Polysubstance abuse: Code(s): F19.10 - Other psychoactive substance abuse, uncomplicated Status: Acute Assessment and Plan: Continue to monitor. (7) Rhabdomyolysis: Code(s): M62.82 - Rhabdomyolysis Status: Acute Assessment and Plan: CPK is elevated. Will increase fluid resuscitation to 200 cc/hour. Will continue to monitor intake output record and renal parameters. Lower extremity fascial compartment does not seems to be tense at all and very soft specially on the left side. Peripheral pulses are palpable. Doppler pulses will be done by the nursing staff every shift. Additional Plan DVT prophylaxis with SCD boot GI prophylaxis IV pantoprazole Full code Critical care time spent 36 minutes Due to a high probability of clinically significant, life threatening deterioration, the patient required my highest level of preparedness to intervene emergently and I personally spent this critical care time directly and personally managing the patient. This critical care time included obtaining a history; examining the patient; pulse oximetry; ordering and review of studies; arranging urgent treatment with development of a management plan; evaluation of patient's response to treatment; frequent reassessment; and discussions with other providers. It was exclusive of separately billable procedures and treating other patients and teaching time. Please see Assessment and Plan section and the rest of the note for further information on patient assessment and treatment. Web Site Administrator Consult Note Consult date: 01/10/21 Time Seen: 09:39 HPI: Jose Cruz Richmond is a 35 year old male of alcohol abuse, ADHD and depression who was brought in here to the hospital with hallucination from alcohol withdrawal. He was recently admitted here in September for alcohol withdrawal. As per the family, he was mostly sober bu
[2021-01-10 09:48] LABS: Mean Corpuscular HGB Conc 34.8 g/dl (32-36); Mean Corpuscular Hemoglobin 34.3 pg (26-34); Mean Corpuscular Volume 98.3 fl (80-100); Mean Platelet Volume 10.9 fl (7.4-10.4); Platelet Count Result 169 k/mm3 (150-375); Red Blood Count 1.81 M/mm3 (4.6-6.20); Red Cell Distribution Width 15.6 % (11.5-14.5); White Blood Count 6.6 K/mm3 (4.5-10.0)
[2021-01-10 09:54] LABS: Hemoglobin 6.2 g/dL (14.0-18.0)
[2021-01-10 09:55] LABS: Hematocrit 17.8 % (42.0-52.0)
[2021-01-10 09:59] LABS: Ammonia 24 umol/L (9-30)
[2021-01-10 10:01] LABS: Creatine Kinase 1229 U/L (55-170); Lipase 270 U/L (23-300)
[2021-01-10 10:02] LABS: Alanine Aminotransferase 74 U/L (4-50); Albumin Level 3.4 g/dL (3.5-5.1); Alkaline Phosphatase 139 U/L (38-126); Anion Gap 4 mmol/L (8-16); Aspartate Amino Transferase 296 U/L (17-59); Blood Urea Nitrogen 22 mg/dL (9-20); Carbon Dioxide 32 mmol/L (22-30); Chloride 95 mmol/L (98-107); Estimated CRCL calculation 97 ml/min; Estimated Glomerular Filt Rate > 60; Glucose 116 mg/dL (75-110); Potassium 2.8 mmol/L (3.4-5.0); Sodium 131 mmol/L (137-145)
[2021-01-10] MEDS: SODIUM CHLORIDE 0.9% IV 1,000 ML 200 ML IV CONT ×3 (11:07→22:54)
[2021-01-10] MEDS: SODIUM CHLORIDE 0.9% IV 500 ML 999 ML IV CONT (11:07)
[2021-01-10 11:54] LABS: Creatine Kinase 1189 U/L (55-170)
[2021-01-10] MEDS: SODIUM CHLORIDE 0.9% IV 250 ML 30 ML IV CONT (12:30)
--- NOTE | 2021-01-10 15:44 | WPDGICN ---
Assessment and Plan Assessment and plan (1) Alcoholic hepatitis: Code(s): K70.10 - Alcoholic hepatitis without ascites Status: Acute Assessment and Plan: he is an alcoholic here with confusion and abnormal liver enzymes he is in ICU because etoh withdrawal continue supportive care banana bag, mvi, nutrition (2) Elevated LFTs: Code(s): R79.89 - Other specified abnormal findings of blood chemistry Status: Acute Assessment and Plan: continue to monitor CT scan reviwed, no acute abdominal abnormality. Hepatic steatosis. hepatitis panel in the past negative (3) Acute blood loss anemia: Code(s): D62 - Acute posthemorrhagic anemia Status: Acute Assessment and Plan: probably from alcohol abuse, liver disease but also large hematoma in left leg when more stable we can do EGD to assess if ulcers, varices, etc (4) Alcohol withdrawal: Qualifiers: Complication of substance-induced condition: with unspecified complication Qualified Code(s): F10.239 - Alcohol dependence with withdrawal, unspecified Code(s): F10.239 - Alcohol dependence with withdrawal, unspecified Status: Acute Assessment and Plan: icu care (5) Hallucinations: Code(s): R44.3 - Hallucinations, unspecified Status: Acute (6) Hematoma of left lower leg: Code(s): S80.12XA - Contusion of left lower leg, initial encounter Status: Acute (7) Acute hypokalemia: Code(s): E87.6 - Hypokalemia Status: Acute Assessment and Plan: repleting (8) Polysubstance abuse: Code(s): F19.10 - Other psychoactive substance abuse, uncomplicated Status: Acute (9) ZOILA (acute kidney injury): Code(s): N17.9 - Acute kidney failure, unspecified Status: Acute Assessment and Plan: medical care (10) Rhabdomyolysis: Code(s): M62.82 - Rhabdomyolysis Status: Acute GI Consult Note Consult date/time: 01/10/21 15:44 Reason for consult: alcoholic hepatitis, acute blood loss anemia HPI: Jose Cruz Richmond is a 35 year old male with history of alcoholism and ADHD admitted with hallucinations from alcohol withdrawal. He had been admitted previously for alcohol withdrawal, history is obtained from records and patient, family said that he began to have withdrawal symptoms on 01/07 with audio and visual hallucinations and paranoid symptoms, he left home and found by police throwing bricks at a vehicle that did not belong to him. He was confused and admitted here to ICU. Also noted large hematoma in left leg. Liver enzymes abnormal with bili 6.3, ast>alt 2, hb 11 on 09/2020 and here 6.2 now getting blood transfusion. No report of overt gib. Patient says that had ulcer that required intervention but no report. He is currently in precedex because etoh withdrawal. Also had ZOILA with hypokalemia. Poor historian now. Review of Systems Constitutional: Constitutional: Reports fatigue Eyes: Eyes: Reports no additional eye complaints ENT: Reports system reviewed and no additional complaints, except as documented Cardiovascular: Cardiovascular: Denies chest pain Respiratory: Respiratory: Denies cough Gastrointestinal: Gastrointestinal: Denies abdominal pain Genitourinary: Genitourinary: Denies dysuria Musculoskeletal: Comments: left leg pain Integumentary/Breasts: Comments: bruise in left leg Neurologic: Reports confusion Psychiatric: Psychiatric: Reports anxiety and Reports confusion [facility] Past Medical History Medical History (Updated 01/10/21 @ 15:51 by Isac Smith MD) Acute blood loss anemia ADHD Alcoholism /alcohol abuse History withdrawal seizures 2011 Depression Hematoma of left lower leg History of duodenal ulcer Polysubstance abuse Family History Family History (Updated 10/06/20 @ 15:08 by Jason Cummings MD) Father Hypertension Other Unknown family medical history Social History S
[2021-01-10 18:28] LABS: Alanine Aminotransferase 80 U/L (4-50); Albumin Level 3.3 g/dL (3.5-5.1); Alkaline Phosphatase 138 U/L (38-126); Anion Gap 7 mmol/L (8-16); Aspartate Amino Transferase 342 U/L (17-59); Bilirubin,Total 4.4 mg/dL (0.2-1.3); Blood Urea Nitrogen 19 mg/dL (9-20); Calcium 7.5 mg/dL (8.4-10.2); Carbon Dioxide 26 mmol/L (22-30); Chloride 98 mmol/L (98-107); Estimated CRCL calculation 130 ml/min; Estimated Glomerular Filt Rate > 60; Glucose 108 mg/dL (75-110); Potassium 3.2 mmol/L (3.4-5.0); Sodium 131 mmol/L (137-145)
[2021-01-10] MEDS: dexmedeTOMIDine 400 MCG/100 ML 400 MCG/100 ML BAG 9 MCG IV CONT (22:54)
[2021-01-11] VITALS (11 sets, daily range): BP systolic 94–141; BP diastolic 61–90; PULSE 74–113; RESP 19–26; TEMP 36.5–37.9; O2SAT 94–99
[2021-01-11 00:45] LABS: Glucose Point of Care 103 (65-105)
[2021-01-11] MEDS: SODIUM CHLORIDE 0.9% IV 1,000 ML 200 ML IV CONT (04:17)
[2021-01-11 05:46] LABS: Hematocrit 25.4 % (42.0-52.0); Hemoglobin 8.4 g/dL (14.0-18.0); Mean Corpuscular HGB Conc 33.1 g/dl (32-36); Mean Corpuscular Hemoglobin 31.2 pg (26-34); Mean Corpuscular Volume 94.4 fl (80-100); Mean Platelet Volume 11.2 fl (7.4-10.4); Platelet Count Result 198 k/mm3 (150-375); Red Blood Count 2.69 M/mm3 (4.6-6.20); Red Cell Distribution Width 19.4 % (11.5-14.5); White Blood Count 7.1 K/mm3 (4.5-10.0)
[2021-01-11 05:56] LABS: Alanine Aminotransferase 74 U/L (4-50); Albumin Level 2.9 g/dL (3.5-5.1); Alkaline Phosphatase 118 U/L (38-126); Anion Gap 5 mmol/L (8-16); Aspartate Amino Transferase 302 U/L (17-59); Blood Urea Nitrogen 16 mg/dL (9-20); Calcium 7.5 mg/dL (8.4-10.2); Carbon Dioxide 25 mmol/L (22-30); Chloride 103 mmol/L (98-107); Creatine Kinase 748 U/L (55-170); Estimated CRCL calculation 148 ml/min; Estimated Glomerular Filt Rate > 60; Glucose 96 mg/dL (75-110); Magnesium 1.5 mg/dL (1.6-2.3); Phosphorus 1.4 mg/dL (2.5-4.5); Potassium 3.1 mmol/L (3.4-5.0); Sodium 133 mmol/L (137-145)
[2021-01-11] MEDS: MAGNESIUM SULF 2 GM/WATER 50ML 2 GM/50 ML BAG IVPB (08:40)
[2021-01-11] MEDS: PANTOPRAZOLE SODIUM IV 40 MG VIAL IV PUSH ×2 (08:48→18:48)
[2021-01-11] MEDS: POTASSIUM CHLORIDE 20 MEQ TABLET 40 MEQ PO (08:50)
[2021-01-11] MEDS: THIAMINE HCL 200 MG/2 ML VIAL IV PUSH (08:50)
[2021-01-11] MEDS: FOLIC ACID 1 MG/0.2 ML INJ IV PUSH (08:50)
[2021-01-11] MEDS: CALCIUM GLUC 2,000 MG/NS 100ML 2,000 MG/100 ML BAG 100 MG IVPB (08:50)
--- NOTE | 2021-01-11 09:11 | WPDINTPN ---
Progress Note: A&P Assessment and Plan (1) Alcohol withdrawal: Qualifiers: Complication of substance-induced condition: with unspecified complication Qualified Code(s): F10.239 - Alcohol dependence with withdrawal, unspecified Code(s): F10.239 - Alcohol dependence with withdrawal, unspecified Status: Acute Assessment and Plan: He is currently on low-dose Precedex drip. He is alert oriented x3 and in no distress. Will discontinue Precedex infusion and use Ativan p.r.n. if needed. Thiamine and folate. Start diet. Decrease IV fluid r CT head showed Diffuse mild cerebral volume loss which is disproportionate to age. Off antibiotics as there is no clear source of infection. (2) Anemia: Qualifiers: Anemia type: other cause Other causes of anemia: other cause, not classified Qualified Code(s): D64.89 - Other specified anemias Code(s): D64.9 - Anemia, unspecified Status: Acute Assessment and Plan: Drop in H&H noted. He has significant bruise in the lower part of the abdomen as well as left lower extremity. Peripheral pulses are intact. CT abdomen pelvis without contrast was unremarkable to explain He has received 2 units of blood yesterday Continue to monitor H&H which appears to be stable now Check stool guaiac. Continue IV pantoprazole for now. Gastroenterology was consulted and plan for EGD during this hospitalization Patient also has a mild hematuria (3) Alcoholic hepatitis: Code(s): K70.10 - Alcoholic hepatitis without ascites Status: Acute Assessment and Plan: Continue to trend LFTs. Which are improving Right upper quadrant ultrasound 1: Gallbladder sludge with pericholecystic fluid. Consider acalculous cholecystitis in the appropriate clinical setting. 2: Hepatic steatosis. Ammonia level was normal Patient has no tenderness in right upper quadrant or complaints of abdominal pain at this time (4) ZOILA (acute kidney injury): Code(s): N17.9 - Acute kidney failure, unspecified Status: Acute Assessment and Plan: Secondary to rhabdomyolysis and dehydration Creatinine has normalized. CK level has improved Continue IV fluid resuscitation but will decrease rate Continue to monitor renal parameters and electrolytes. Strict intake output record and daily weight. (5) Polysubstance abuse: Code(s): F19.10 - Other psychoactive substance abuse, uncomplicated Status: Acute Assessment and Plan: Continue to monitor. (6) Rhabdomyolysis: Code(s): M62.82 - Rhabdomyolysis Status: Acute Assessment and Plan: CPK is elevated but improving. Will continue fluid resuscitation. Will continue to monitor intake output record and renal parameters. Lower extremity fascial compartment does not seems to be tense at all and very soft specially on the left side. Peripheral pulses are palpable. Doppler pulses will be done by the nursing staff every shift. 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 I discussed the results of this with patient and recommended that he sees a primary physician as an outpatient for further evaluation of this mass once acute medical issues are taken care of and this has position. Additional Plan DVT prophylaxis with SCD boot GI prophylaxis IV pantoprazole Full code Subjective Date/time seen: 01/11/21 09:11 Feels better this morning. Mati
[2021-01-11] MEDS: SODIUM CHLORIDE 0.9% IV 1,000 ML 100 ML IV CONT (10:30)
--- NOTE | 2021-01-11 11:30 | PM.IMPN ---
Progress Note: A&P Assessment and Plan (1) Alcohol withdrawal: Qualifiers: Complication of substance-induced condition: with unspecified complication Qualified Code(s): F10.239 - Alcohol dependence with withdrawal, unspecified Code(s): F10.239 - Alcohol dependence with withdrawal, unspecified Status: Acute Assessment and Plan: Patient presents with altered mental status. Brain CT showing no acute intracranial process. CXR clear. Probably alcohol withdrawal. Patient has been having hallucinations for the past few days with last drink being on January 05. Alcohol level here was negative. Ammonia level was normal. He denies overdosing on his Adderall. More stable now and Precedex able to be weaned off. Continue thiamine and folate. Ativan available as need. Use Librium scheduled if he is requiring more Ativan. (2) Polysubstance abuse: Code(s): F19.10 - Other psychoactive substance abuse, uncomplicated Status: Acute Assessment and Plan: Urine drug screen was positive for benzodiazepines and amphetamines. Patient does take Adderall which could explain the positive drug screen. He also received benzodiazepines in the emergency room prior to the urine being collected so this could explain the positive drug screen for benzodiazepines as well. Patient denies drug use. Suspect positive drug screen related to these medication and NOT polysubstance abuse. (3) Hypokalemia: Code(s): E87.6 - Hypokalemia Status: Acute Assessment and Plan: Potassium 2.5 on admission. This has been replaced. Repeat potassium 3.1 today and Mag 1.5 with Phos 1.4. Electrolytes to be replaced today. Continue to monitor and replace as needed. (4) Anemia: Qualifiers: Anemia type: other cause Other causes of anemia: other cause, not classified Qualified Code(s): D64.89 - Other specified anemias Code(s): D64.9 - Anemia, unspecified Status: Acute Assessment and Plan: Hemoglobin 7.8 on admission. Hemoglobin was 11 at last discharge 3 months ago. He does have a large bruise noted to his left lower extremity which could explain the blood loss. Consider also alcoholic gastritis. No obvious hematomas on exam noted. Hgb dropped to 6.2 and he received 2U PRBC on 01/10. Repeat Hgb 8.4 today. Continue Protonix. Follow H&H. Transfuse as necessary. (5) Alcoholic hepatitis: Code(s): K70.10 - Alcoholic hepatitis without ascites Status: Acute Assessment and Plan: Liver enzymes elevated on admission. [place] related to alcoholic hepatitis. Hepatitis panel negative in September. CT of the abdomen pelvis showed hepatic steatosis but no acute abnormalities overall. There was debris within the gallbladder lumen which could be sludge or stones. Abdominal ultrasound showed GB sludge with pericholecystic fluid and hepatic steatosis. Bilirubin is 6.3 on admission here but improved to 4.0 now. LFTs better overall. Continue to monitor. (6) ZOILA (acute kidney injury): Code(s): N17.9 - Acute kidney failure, unspecified Status: Acute Assessment and Plan: Creatinine 1.9 on admission. Most likely pre renal from continued alcohol use and poor oral intake. Consider also related to rhabdomyolysis given his physical findings. Repeat creatinine better at 0.7. Continue to monitor. (7) Elevated CK: Code(s): R74.8 - Abnormal levels of other serum enzymes Status: Acute Assessment and Plan: Left LE ecchymosis without hematoma clinically. Per patient hx, his foot slipped off the side board of his truck - suspect he sheared penetrating vessels. Total CK was 1229 but better today with IV fluids. Okay to stop IV fluids since eating okay. Continue to monitor total CK. (8) DVT prophylaxis: Code(s): Z29.9 - Encounter for prophylactic measures, unspecified Status: Acute Assessment and Plan: SCDs in l
[2021-01-11 12:17] LABS: Glucose Point of Care 148 (65-105)
--- NOTE | 2021-01-11 17:28 | WPDGIPROGNO ---
Progress Note: A&P Assessment and Plan (1) Acute blood loss anemia: Code(s): D62 - Acute posthemorrhagic anemia Status: Acute Assessment and Plan: better after blood transfusion, noted large bruise in leg which can partially explain anemia but given risk factors of liver disease also need to do EGD and assess if ulcers, varices, etc ppi for now egd tomorrow (2) Alcoholic hepatitis: Code(s): K70.10 - Alcoholic hepatitis without ascites Status: Acute Assessment and Plan: on medical treament monitor and trend lft's nutrition support (3) Elevated LFTs: Code(s): R79.89 - Other specified abnormal findings of blood chemistry Status: Acute (4) Hematoma of left lower leg: Code(s): S80.12XA - Contusion of left lower leg, initial encounter Status: Acute (5) Acute hypokalemia: Code(s): E87.6 - Hypokalemia Status: Acute Assessment and Plan: repleting (6) Alcohol withdrawal: Qualifiers: Complication of substance-induced condition: with unspecified complication Qualified Code(s): F10.239 - Alcohol dependence with withdrawal, unspecified Code(s): F10.239 - Alcohol dependence with withdrawal, unspecified Status: Acute Assessment and Plan: icu care Subjective Date/time seen: 01/11/21 17:28 Interval history: he is feeling better today, still in icu, no signs of gib Review of Systems Review of Systems: All systems reviewed & are unremarkable except as noted in HPI and below Exam Const: Other: more alert and awake today Eyes: Pupils: Equal, round and reactive pupils present Other: mild icteric Neck: Neck: supple Resp: Effort & Inspection: normal respiratory effort Cardio: Rate: regular rate GI: GI Palp: Yes Soft to palpation and No Guarding due to palpation present (GI) Auscultation: normal bowel sounds Skin: Other: icteric sclerae Neuro: Speech: normal speech Other: awake and alert but drowsy Extrem: Other: left leg with large bruise Psych: Affect: Anxious affect present Objective Data Vital Signs Vital Signs: Vital Signs - 24 hr 01/10/21 18:00 01/10/21 20:00 01/10/21 21:25 Temperature 98.3 F Pulse Rate 84 92 83 Respiratory Rate 26 H 21 H 20 Blood Pressure 103/61 114/85 Pulse Oximetry 96 99 03/31/21 22:00 01/11/21 00:00 01/11/21 02:00 Temperature 97.7 F Pulse Rate 76 78 77 Respiratory Rate 22 H 26 H 23 H Blood Pressure 95/64 L 94/61 L 96/62 L Pulse Oximetry 98 97 98 01/11/21 04:00 01/11/21 05:54 01/11/21 08:00 Temperature 98.4 F 98.6 F Pulse Rate 77 75 82 Respiratory Rate 20 23 H 21 H Blood Pressure 104/69 102/69 103/61 Pulse Oximetry 94 94 94 01/11/21 10:00 01/11/21 12:00 01/11/21 14:00 Temperature 98.8 F Pulse Rate 97 106 H 110 H Respiratory Rate 19 23 H 26 H Blood Pressure 118/80 134/87 128/86 Pulse Oximetry 94 96 97 01/11/21 16:00 Temperature 98.8 F Pulse Rate 96 Respiratory Rate 23 H Blood Pressure 101/90 Pulse Oximetry 96 Intake/Output Intake/Output: Intake & Output 01/08/21 01/09/21 01/10/21 01/11/21 23:59 23:59 23:59 23:59 Intake Total 5893.2 3000 Output Total 750 850 Balance 5143.2 2150 Meds/Results Medications: Active Medications Generic Name Dose Route Start Last Admin Trade Name Freq PRN Reason Stop Dose Admin Folic Acid 1 mg 01/11/21 09:00 01/11/21 08:50 Folic Acid 1 Mg/0.2 Ml Inj IV PUSH 1 mg QAM ERYN Administration Lorazepam 2 mg 01/11/21 07:57 Lorazepam Inj (*Crx) 2 Mg/Ml Vial IV PUSH Q1H PRN CIWA Score > 15 Lorazepam 1 mg 01/11/21 07:56 Lorazepam Inj (*Crx) 2 Mg/Ml Vial IV PUSH Q1H PRN CIWA Score 10-15 Lorazepam 1 mg 01/11/21 07:56 Lorazepam (*Crx) 1 Mg Tablet PO Q4HR PRN CIWA Score < 10 Ondansetron HCl 4 mg 01/10/21 02:26 Ondansetron Inj 4 Mg/2 Ml Vial IV PUSH Q4H PRN Nausea Pantoprazole Sodium 40 mg 01/10/21 17:00
--- NOTE | 2021-01-11 17:31 | PC.NURSE ---
This patient, Jose Cruz Richmond, was transferred to [ 319] on 01/11/21 at 1724. Personal belongings sent with patient. Appropriate documentation sent with patient.
--- NOTE | 2021-01-11 18:17 | PC.NURSE ---
This patient, Jose Cruz Richmond, was received from [ ICU 6] on 01/11/21 at 1730. Patient oriented to unit policies and routines
[2021-01-11] MEDS: LORazepam (*CRX) 1 MG TABLET PO (20:56)
--- NOTE | 2021-01-11 22:44 | PC.NURSE ---
MD Matos notified that the order for POC glucose checks Q 6hr are from the ICU and that the patient now has a diet and is not a diabetic. stated he would look into the order.
[2021-01-12] VITALS (9 sets, daily range): BP systolic 112–158; BP diastolic 72–88; PULSE 70–106; RESP 16–20; TEMP 36.8–37.7; O2SAT 93–96
--- NOTE | 2021-01-12 01:28 | PC.NURSE ---
RN attempted to get a consent for EGD from patient. Patient stated the doctor talked to him about it. Patient asked RN if he was required to sign the consent. RN stated that it was his choice. Pt stated that he was not going to sign the consent. RN asked if patient had questions, or reason why he did not want to consent to surgery. Patient stated I just do not want to do it
[2021-01-12 06:07] LABS: Hematocrit 25.5 % (42.0-52.0); Hemoglobin 8.4 g/dL (14.0-18.0); Mean Corpuscular HGB Conc 32.9 g/dl (32-36); Mean Corpuscular Hemoglobin 31.3 pg (26-34); Mean Corpuscular Volume 95.1 fl (80-100); Mean Platelet Volume 10.9 fl (7.4-10.4); Platelet Count Result 208 k/mm3 (150-375); Red Blood Count 2.68 M/mm3 (4.6-6.20); Red Cell Distribution Width 21.7 % (11.5-14.5); White Blood Count 5.6 K/mm3 (4.5-10.0)
[2021-01-12 06:29] LABS: Magnesium 1.7 mg/dL (1.6-2.3); Phosphorus 2.3 mg/dL (2.5-4.5)
[2021-01-12 06:35] LABS: Alanine Aminotransferase 85 U/L (4-50); Albumin Level 2.9 g/dL (3.5-5.1); Alkaline Phosphatase 171 U/L (38-126); Anion Gap 5 mmol/L (8-16); Aspartate Amino Transferase 265 U/L (17-59); Bilirubin,Total 4.3 mg/dL (0.2-1.3); Blood Urea Nitrogen 6 mg/dL (9-20); Carbon Dioxide 28 mmol/L (22-30); Chloride 102 mmol/L (98-107); Creatine Kinase 371 U/L (55-170); Estimated CRCL calculation 170 ml/min; Estimated Glomerular Filt Rate > 60; Glucose 104 mg/dL (75-110); Sodium 135 mmol/L (137-145)
[2021-01-12] MEDS: MAGNESIUM SULF 2 GM/WATER 50ML 2 GM/50 ML BAG IVPB (08:41)
[2021-01-12] MEDS: PANTOPRAZOLE SODIUM IV 40 MG VIAL IV PUSH (08:42)
[2021-01-12] MEDS: THIAMINE HCL 200 MG/2 ML VIAL IV PUSH (08:42)
[2021-01-12] MEDS: POTASSIUM PHOS,M-BASIC-D-BASIC 20 MMOL in SODIUM CHLORIDE 0.9% IV 250 ML 62.5 MMOL IVPB (08:43)
[2021-01-12 09:42] LABS: Glucose Point of Care 97 (65-105)
[2021-01-12] MEDS: FOLIC ACID 1 MG/0.2 ML INJ IV PUSH (10:16)
[2021-01-12 12:27] LABS: Glucose Point of Care 129 (65-105)
--- NOTE | 2021-01-12 15:51 | PM.IMPN ---
Progress Note: A&P Assessment and Plan (1) Alcohol withdrawal: Qualifiers: Complication of substance-induced condition: with unspecified complication Qualified Code(s): F10.239 - Alcohol dependence with withdrawal, unspecified Code(s): F10.239 - Alcohol dependence with withdrawal, unspecified Status: Acute Assessment and Plan: Patient presents with altered mental status. Brain CT showing no acute intracranial process. CXR clear. Probably alcohol withdrawal. Patient has been having hallucinations for the past few days with last drink being on January 05. Alcohol level here was negative. Ammonia level was normal. He denies overdosing on his Adderall. More stable and Precedex able to be weaned off. CIWA 8 last night but 0 today. Was on Unasyn but stopped since no evidence of infection. Now with low grade fever noted. Will repeat CXR. Continue thiamine and folate. Ativan available as need. CXR personally reviewed and consistent with PNA. Suspect aspiration PNA. Start Augmentin. (2) Polysubstance abuse: Code(s): F19.10 - Other psychoactive substance abuse, uncomplicated Status: Acute Assessment and Plan: Urine drug screen was positive for benzodiazepines and amphetamines. Patient does take Adderall which could explain the positive drug screen. He also received benzodiazepines in the emergency room prior to the urine being collected so this could explain the positive drug screen for benzodiazepines as well. Patient denies drug use. Suspect positive drug screen related to these medication and NOT polysubstance abuse. (3) Hypokalemia: Code(s): E87.6 - Hypokalemia Status: Acute Assessment and Plan: Potassium 2.5 on admission. This has been replaced. Repeat potassium 3.0 today and Mag 1.7 with Phos 2.3. Electrolytes to be replaced again today. Continue to monitor and replace as needed. (4) Anemia: Qualifiers: Anemia type: other cause Other causes of anemia: other cause, not classified Qualified Code(s): D64.89 - Other specified anemias Code(s): D64.9 - Anemia, unspecified Status: Acute Assessment and Plan: Hemoglobin 7.8 on admission. Hemoglobin was 11 at last discharge 3 months ago. He does have a large bruise noted to his left lower extremity which could explain the blood loss. Consider also alcoholic gastritis. No obvious hematomas on exam noted. Hgb dropped to 6.2 and he received 2U PRBC on 01/10. Repeat Hgb 8.4 and stable. Continue Protonix. Follow H&H. Transfuse as necessary. (5) Alcoholic hepatitis: Code(s): K70.10 - Alcoholic hepatitis without ascites Status: Acute Assessment and Plan: Liver enzymes elevated on admission. [place] related to alcoholic hepatitis. Hepatitis panel negative in September. CT of the abdomen pelvis showed hepatic steatosis but no acute abnormalities overall. There was debris within the gallbladder lumen which could be sludge or stones. Abdominal ultrasound showed GB sludge with pericholecystic fluid and hepatic steatosis. Bilirubin is 6.3 on admission here but improved to 4.0 range. LFTs better overall. Abstaining from all alcohol is a must and this was reinforced with patient. Continue to monitor. (6) ZOILA (acute kidney injury): Code(s): N17.9 - Acute kidney failure, unspecified Status: Acute Assessment and Plan: Creatinine 1.9 on admission. Most likely pre renal from continued alcohol use and poor oral intake. Consider also related to rhabdomyolysis given his physical findings. Repeat creatinine better at 0.6. Continue to monitor periodically. (7) Elevated CK: Code(s): R74.8 - Abnormal levels of other serum enzymes Status: Acute Assessment and Plan: Left LE ecchymosis without hematoma clinically. Per patient hx, his foot slipped off the side board of his truck - suspect he sheared penetrating vessels. Tot
[2021-01-12] MEDS: LORazepam (*CRX) 1 MG TABLET PO (16:39)
--- NOTE | 2021-01-12 17:48 | WPDGIPROGNO ---
Progress Note: A&P Assessment and Plan (1) Acute blood loss anemia: Code(s): D62 - Acute posthemorrhagic anemia Status: Acute Assessment and Plan: better after blood transfusion, noted large bruise in leg which can partially explain anemia I was planning to do EGD but he refused, I just do not want it no overt gib ppi for now tolerating diet (2) Alcoholic hepatitis: Code(s): K70.10 - Alcoholic hepatitis without ascites Status: Acute Assessment and Plan: on medical treament monitor and trend lft's nutrition support (3) Elevated LFTs: Code(s): R79.89 - Other specified abnormal findings of blood chemistry Status: Acute (4) Hematoma of left lower leg: Code(s): S80.12XA - Contusion of left lower leg, initial encounter Status: Acute (5) Acute hypokalemia: Code(s): E87.6 - Hypokalemia Status: Acute Assessment and Plan: repleting (6) Alcohol withdrawal: Qualifiers: Complication of substance-induced condition: with unspecified complication Qualified Code(s): F10.239 - Alcohol dependence with withdrawal, unspecified Code(s): F10.239 - Alcohol dependence with withdrawal, unspecified Status: Acute Assessment and Plan: on medical treatment, thiamine Subjective Date/time seen: 01/12/21 17:48 Interval history: he was moved to floor, overall better, still shaky. He refused egd, denies abdominal pain or melena. Review of Systems Review of Systems: All systems reviewed & are unremarkable except as noted in HPI and below Exam Const: General: comfortable and no acute distress HENMT: General nose exam: Normal nares present Eyes: Pupils: Equal, round and reactive pupils present Other: mild icteric Neck: Neck: supple Resp: Effort & Inspection: normal respiratory effort Cardio: Rate: regular rate GI: GI Palp: Yes Soft to palpation and No Guarding due to palpation present (GI) Auscultation: normal bowel sounds Skin: Other: icteric sclerae Neuro: Speech: normal speech Other: awake and alert Extrem: Other: left leg with large bruise Psych: Affect: Anxious affect present Objective Data Vital Signs Vital Signs: Vital Signs - 24 hr 01/11/21 22:00 01/12/21 00:00 01/12/21 04:00 Temperature 100.3 F H 99.3 F 99.2 F Pulse Rate 113 H 100 94 Pulse Rate [Bilateral Pedal (Dorsalis Pedis)] 72 Respiratory Rate 20 20 20 Blood Pressure 141/73 H 138/80 133/81 Pulse Oximetry 95 96 94 01/12/21 07:45 01/12/21 08:00 01/12/21 09:44 Temperature 98.3 F Pulse Rate 88 Pulse Rate [Bilateral Pedal (Dorsalis Pedis)] 72 Respiratory Rate 16 Blood Pressure 133/88 Pulse Oximetry 94 94 01/12/21 12:00 01/12/21 16:00 Temperature 99.5 F 99.2 F Pulse Rate 100 104 H Pulse Rate [Bilateral Pedal (Dorsalis Pedis)] Respiratory Rate 20 16 Blood Pressure 112/72 122/74 Pulse Oximetry 95 93 Intake/Output Intake/Output: Intake & Output 01/09/21 01/10/21 01/11/21 01/12/21 23:59 23:59 23:59 23:59 Intake Total 5893.2 3520 2020 Output Total 750 1525 2800 Balance 5143.2 1994 Meds/Results Medications: Active Medications Generic Name Dose Route Start Last Admin Trade Name Freq PRN Reason Stop Dose Admin Amoxicillin/Clavulanate Potassium 1 tablet 01/12/21 21:00 Amoxicillin/Clavulanate K 875-125 Mg Tab PO Q12HR ERYN Folic Acid 1 mg 01/13/21 09:00 Folic Acid 1 Mg Tablet PO DAILY ERYN Lorazepam 2 mg 01/11/21 07:57 Lorazepam Inj (*Crx) 2 Mg/Ml Vial IV PUSH Q1H PRN CIWA Score > 15 Lorazepam 1 mg 01/11/21 07:56 Lorazepam Inj (*Crx) 2 Mg/Ml Vial IV PUSH Q1H PRN CIWA Score 10-15 Lorazepam 1 mg 01/11/21 07:56 01/12/21 16:39 Lorazepam (*Crx) 1 Mg Tablet PO 1 mg Q4HR PRN Administration CIWA Score < 10 Ondansetron HCl 4 mg 01/10/21 02:26 Ondansetron Inj 4 Mg/2 Ml Vial IV PUSH Q4H PRN Nausea Pantoprazole
[2021-01-12] MEDS: AMOXICILLIN/CLAVULANATE K 875-125 MG TAB 1 TABLET PO (20:12)
[2021-01-13] VITALS: PULSE 86
[2021-01-13 00:15] LABS: Glucose Point of Care 117 (65-105)
[2021-01-13 00:18] VITALS: BP 152/97; PULSE 102; RESP 20; TEMP 37.1; O2SAT 95
[2021-01-13 04:50] VITALS: BP 151/91; PULSE 97; RESP 20; TEMP 36.8; O2SAT 96
[2021-01-13 05:33] LABS: Glucose Point of Care 113 (65-105)
[2021-01-13 06:23] VITALS: BP 142/82
[2021-01-13 06:35] LABS: Hematocrit 26.6 % (42.0-52.0); Hemoglobin 8.9 g/dL (14.0-18.0); Mean Corpuscular HGB Conc 33.5 g/dl (32-36); Mean Corpuscular Hemoglobin 31.9 pg (26-34); Mean Corpuscular Volume 95.3 fl (80-100); Mean Platelet Volume 10.9 fl (7.4-10.4); Platelet Count Result 247 k/mm3 (150-375); Red Blood Count 2.79 M/mm3 (4.6-6.20); Red Cell Distribution Width 21.7 % (11.5-14.5); White Blood Count 5.7 K/mm3 (4.5-10.0)
[2021-01-13 06:45] LABS: Alanine Aminotransferase 76 U/L (4-50); Alkaline Phosphatase 154 U/L (38-126); Anion Gap 4 mmol/L (8-16); Aspartate Amino Transferase 189 U/L (17-59); Bilirubin,Total 3.9 mg/dL (0.2-1.3); Blood Urea Nitrogen 4 mg/dL (9-20); Calcium 8.2 mg/dL (8.4-10.2); Carbon Dioxide 28 mmol/L (22-30); Chloride 103 mmol/L (98-107); Estimated CRCL calculation 170 ml/min; Estimated Glomerular Filt Rate > 60; Glucose 106 mg/dL (75-110); Magnesium 1.7 mg/dL (1.6-2.3); Phosphorus 2.6 mg/dL (2.5-4.5); Potassium 3.3 mmol/L (3.4-5.0); Sodium 135 mmol/L (137-145)
[2021-01-13] MEDS: PANTOPRAZOLE 40 MG TABLET PO (08:21)
[2021-01-13] MEDS: AMOXICILLIN/CLAVULANATE K 875-125 MG TAB 1 TABLET PO (08:21)
[2021-01-13] MEDS: THIAMINE HCL 100 MG TABLET PO (08:21)
[2021-01-13] MEDS: POTASSIUM CHLORIDE 20 MEQ TABLET 40 MEQ PO (08:22)
[2021-01-13] MEDS: FOLIC ACID 1 MG TABLET PO (08:22)
[2021-01-13 08:26] VITALS: BP 138/94; PULSE 102
--- NOTE | 2021-01-13 11:17 | PM.DS ---
DS: Admitting Diagnosis Admitting Diagnosis Admitting Diagnosis: Altered mental status DS: Discharge Diagnosis Discharge Diagnosis (1) Alcohol withdrawal: Qualifiers: Complication of substance-induced condition: with unspecified complication Qualified Code(s): F10.239 - Alcohol dependence with withdrawal, unspecified Code(s): F10.239 - Alcohol dependence with withdrawal, unspecified Status: Acute Assessment and Plan: Patient presented with altered mental status. Brain CT showing no acute intracranial process. CXR was clear. [place] realted to alcohol withdrawal. Patient was having hallucinations for the past few days with last drink being on January 05. Alcohol level here was negative. Ammonia level was normal. He denied overdosing on his Adderall. He was started on Precedex and admitted to the ICU. He became more stable and Precedex able to be weaned off. He was monitored with CIWA. Also treated with thiamine and folate. Ativan was available as need. (2) Aspiration pneumonia: Code(s): J69.0 - Pneumonitis due to inhalation of food and vomit Status: Acute Assessment and Plan: Was on Unasyn for concern for aspiration but stopped since no evidence of infection. CXR was clear on admisison. He then developed low grade fever and repeat CXR showing bilateral perihilar infiltrates, suspicious for pneumonia. He was started on Augmentin. No further fevers. No significnat cough. No O2 requirement. Home with oral abx (3) Polysubstance abuse: Code(s): F19.10 - Other psychoactive substance abuse, uncomplicated Status: Acute Assessment and Plan: Urine drug screen was positive for benzodiazepines and amphetamines. Patient does take Adderall which could explain the positive drug screen. He also received benzodiazepines in the emergency room prior to the urine being collected so this could explain the positive drug screen for benzodiazepines as well. Patient denies drug use. Suspect positive drug screen related to these medication and NOT polysubstance abuse. (4) Hypokalemia: Code(s): E87.6 - Hypokalemia Status: Acute Assessment and Plan: Potassium 2.5 on admission. This has been replaced. Repeat potassium better. Should stablize as his nutrition improves. (5) Anemia: Qualifiers: Anemia type: other cause Other causes of anemia: other cause, not classified Qualified Code(s): D64.89 - Other specified anemias Code(s): D64.9 - Anemia, unspecified Status: Acute Assessment and Plan: Hemoglobin 7.8 on admission. Hemoglobin was 11 at last discharge 3 months ago. He does have a large bruise noted to his left lower extremity which could explain the blood loss. Consider also alcoholic gastritis. No obvious hematomas on exam noted. Hgb dropped to 6.2 and he received 2U PRBC on 01/10. Repeat Hgb 8.9 and stable. Treated with Protonix. (6) Alcoholic hepatitis: Code(s): K70.10 - Alcoholic hepatitis without ascites Status: Acute Assessment and Plan: Liver enzymes elevated on admission. [place] related to alcoholic hepatitis. Hepatitis panel negative in September. CT of the abdomen pelvis showed hepatic steatosis but no acute abnormalities overall. There was debris within the gallbladder lumen which could be sludge or stones. Abdominal ultrasound showed GB sludge with pericholecystic fluid and hepatic steatosis. Bilirubin is 6.3 on admission here but improved to 3.9. LFTs better overall. Abstaining from all alcohol is a must and this was reinforced with patient. (7) ZOILA (acute kidney injury): Code(s): N17.9 - Acute kidney failure, unspecified Status: Acute Assessment and Plan: Creatinine 1.9 on admission. Most likely pre renal from continued alcohol use and poor oral intake. Consider also related to rhabdomyolysis given his physical findings. Repeat creatinine dahiana
== END 2021-01-13 12:45 | disposition home or self-care (01) | DRG 775 ==
LOC: ANHED 01-10 02:33 → ANHICU 01-10 04:42 → ANH3MEDSUR 01-12 07:38 → ANHICU 01-16 13:18 → ANHIMU 01-16 13:18
PROVIDERS: Internal Medicine Critical Care Medicine; Admitting Provider Family Medicine; Emergency Provider Emergency Medicine; Visit Provider Internal Medicine
DX: F10.239 Alcohol dependence with withdrawal, unspecified (principal); E87.6 Hypokalemia; D64.9 Anemia, unspecified; F90.9 Attention-deficit hyperactivity disorder, unspecified type; K70.10 Alcoholic hepatitis without ascites; N17.9 Acute kidney failure, unspecified; M62.82 Rhabdomyolysis; D62 Acute posthemorrhagic anemia; S80.12XA Contusion of left lower leg, initial encounter
CPT/HCPCS: 36415; 36430; 70450; 71045; 74176; 76705; 80053; 80307; 81001; 82140; 82550; 83605; 83690; 83735; 84100; 85025; 85027; 85610; 85730; 86850; 86900; 86901; 86923; 87086; 93005; 96361; 96365; 96375; 96376; 99285; A9270; C9113; J0295; J0610; J2060; J3411; J3475; J3480; J7030; J7050; J7060; J7121; P9016

== ENCOUNTER 2021-03-06 16:20 | Inpatient (IN) | payer MEDICAID, SELFPAY ==
[2021-03-06] VITALS (7 sets, daily range): BP systolic 133–160; BP diastolic 86–96; PULSE 99–133; RESP 16–19; TEMP 36.8–37; O2SAT 92–100; BMI 27.6
[2021-03-06 16:58] LABS: Basophils Percent Auto 0.7 % (0.2-1.2); Eosinophils Percent Auto 0.7 % (0-4.4); Hematocrit 45.6 % (42.0-52.0); Hemoglobin 15.5 g/dL (14.0-18.0); Immature Granulocyte Absolute 0.02 K/mm3 (0.00-0.031); Immature Granulocyte Percent A 0.3 % (0-0.5); Immature Platelet Fraction Pct 7.4 % (0.9-11.2); Lymphocytes Absolute Auto 1.16 K/mm3 (0.9-3.2); Lymphocytes Percent Auto 19.4 % (18.3-44.2); Mean Corpuscular Hemoglobin 31.8 pg (26-34); Mean Corpuscular Volume 93.4 fl (80-100); Mean Platelet Volume 10.7 fl (7.4-10.4); Monocytes Percent Auto 16.1 % (2.6-8.5); Neutrophils Absolute Auto 3.8 K/mm3 (1.3-6.7); Neutrophils Percent Auto 62.8 % (45.5-73.1); Platelet Count Result 114 k/mm3 (150-375); Red Blood Count 4.88 M/mm3 (4.6-6.20); Red Cell Distribution Width 13.1 % (11.5-14.5)
[2021-03-06 17:06] LABS: Alanine Aminotransferase 122 U/L (4-50); Albumin Level 5.4 g/dL (3.5-5.1); Alkaline Phosphatase 80 U/L (38-126); Anion Gap 16 mmol/L (8-16); Aspartate Amino Transferase 249 U/L (17-59); Bilirubin,Total 1.2 mg/dL (0.2-1.3); Blood Urea Nitrogen 25 mg/dL (9-20); Calcium 10.9 mg/dL (8.4-10.2); Carbon Dioxide 28 mmol/L (22-30); Chloride 100 mmol/L (98-107); Estimated CRCL calculation 92 ml/min; Estimated Glomerular Filt Rate > 60; Glucose 170 mg/dL (75-110); Potassium 3.4 mmol/L (3.4-5.0); Sodium 144 mmol/L (137-145)
[2021-03-06 17:07] LABS: Ethanol < 10 mg/dL (<10)
--- NOTE | 2021-03-06 17:19 | ECG_ITS ---
Measurements Intervals [place] Rate: 105 P: 60 [place]: 163 QRS: 25 QRSD: 82 T: 32 QT: 340 QTc: 449 Interpretive Statements SINUS TACHYCARDIA BORDERLINE ECG Electronically Signed On 03-06-2021 20:29:43 CDT by Kermit Jones D.O.
[2021-03-06] MEDS: LACTATED RINGERS 1,000 ML 999 ML IV CONT ×2 (17:32→18:39)
[2021-03-06] MEDS: LORazepam INJ (*CRX) 2 MG/ML VIAL IV PUSH (17:33)
--- NOTE | 2021-03-06 17:36 | ED.ALCOHOL ---
HPI - Alcohol General Chief Complaint: Alcohol Stated Complaint: Detoxing from Alcohol Time Seen by Provider: 03/06/21 17:01 Source: patient, RN notes reviewed and old records reviewed Mode of arrival: ambulatory Limitations: altered mental status History of Present Illness HPI narrative: This is a 35 year old male with history alcohol abuse, DT who presents for evaluation of alcohol withdrawal. He states he decided to stop drinking last Friday, and he did not have any more alcohol until 2 days ago. He reported that he drinks 3 L wine daily but he only drank a small amount 2 days ago. He report he has only slept 4 hours in the past 6 days. He is also complaining that he has been seeing wires growing out of his fingers , and he is able to hand the wires to his mother. He is having visual and auditory hallucinations. He has been having nausea but no vomiting. He also denies abdominal pain. Patient has been admitted to [facility] multiple times for alcohol withdrawals, DTs that has required admission to ICU. He states he has been out of work for 1 year so it has been difficulty for his to remain sober. MD complaint: alcohol withdrawal Related Data Home Medications Medication Instructions Recorded Confirmed dextroamphetamine-amphetamine 10 mg PO DAILY 01/09/21 03/06/21 [Adderall] Vyvanse 70 mg PO QAM 01/10/21 03/06/21 Allergies Allergy/AdvReac Type Severity Reaction Status Date / Time No Known Allergies Allergy Unverified 09/27/12 20:31 Review of Systems Review of Systems: All systems reviewed & are unremarkable except as noted in HPI and below Constitutional: Constitutional: Denies chills and Denies fever(s) Eyes: Eyes: Denies change in vision Cardiovascular: Cardiovascular: Denies chest pain Respiratory: Respiratory: Denies cough and Denies dyspnea Gastrointestinal: Gastrointestinal: Denies abdominal pain, Reports nausea and Denies vomiting Psychiatric: Psychiatric: Reports anxiety PMFSH Past Medical History Medical History Acute blood loss anemia ADHD Alcoholism /alcohol abuse History withdrawal seizures 2012 Depression Hematoma of left lower leg History of duodenal ulcer Family History Family History (Updated 03/06/21 @ 20:18 by Cindy Aragon RN) Father Hypertension Mother Unknown family medical history Breast cancer Social History Social History (Updated 01/10/21 @ 10:11 by Jason Cummings MD) Social History: Patient currently lives with his mother and father. Lifelong nonsmoker. No known history of drug use. Full code. Hx of alcoholism. Full code. His parents would make medical decisions for him if he is unable Smoking status: Never smoker Alcohol intake: current Drinks per week: 35 Substance use: former Gender identity (if verbalized by the patient): Male Spiritual care concerns: No Exam Const: General: no acute distress and alert Orientation/consciousness: patient oriented x3 Eyes: Pupils: Equal, round and reactive pupils present EOM: EOMs intact bilaterally Chest: Chest palpation & inspection: normal inspection of the chest Resp: Effort & Inspection: normal respiratory effort and no retractions Auscultation: clear to auscultation bilaterally Cardio: Rate: tachycardic Rhythm: regular rhythm Heart sounds: no murmurs GI: GI Palp: Yes Soft to palpation, No Tenderness to palpation present (GI), No Guarding due to palpation present (GI) and No Rigid due to palpation Auscultation: normal bowel sounds Skin: General skin exam: normal color Rashes: no rashes Neuro: General: patient oriented x3, moves all extremities and CN's II-XI intact bilaterally Other: tremulous Extrem: General: normal to inspection and no pedal edema Psych: Affect: Anxious affect present Course Consultations Consultation #1: I Discussed with dylno hawkins, patient case with alcohol withdrawal de
[2021-03-06 17:39] LABS: Add Urine Microscopic? YES; Appearance Urine Cloudy (Clear); Bacteria Urine Trace /hpf; Bilirubin Urine Negative (Negative); Blood Urine Negative (Negative); Color Urine Amber (Yellow); Glucose Urine UA Negative (Negative); Hyaline Casts Urine 30-49 /lpf; Ketones Urine Trace mg/dL (Negative); Leukocyte Esterase Ur Negative LEU/UL (Negative); Mucus Urine Heavy /lpf; Nitrate Urine Negative (Negative); Protein Urine 2+ mg/dL (Negative); RBC Urine 21-50 /hpf (0-2); Squamous Epithelial Cell Urine Rare /hpf (Few); WBC Urine 0-3 /hpf
[2021-03-06 17:50] LABS: Specific Grav Ur 1.033 (1.001-1.035)
[2021-03-06 17:50] LABS: Magnesium 1.2 mg/dL (1.6-2.3)
[2021-03-06 17:56] LABS: Amphetamine Screen Urine Positive (Negative); Barbiturate Screen Urine Negative (Negative); Benzodiazepines Screen Urine Negative (Negative); Cannabinoid Screen Urine Negative (Negative); Cocaine Screen Urine Negative (Negative); Methadone Screen Urine Negative (Negative); Opiate Screen Urine Negative (Negative); Phencyclidine Screen Urine Negative (Negative)
[2021-03-06] MEDS: THIAMINE HCL INJ 100 MG, FOLIC ACID INJ 1 MG, MULTIVITAMINS-12 INJ VIAL 1 5 ML, MULTIVI... IV CONT (17:56)
--- NOTE | 2021-03-06 17:57 | PC.NURSE ---
pt talking to himself or someone not in room. staring off into distance. laughing out loud.
[2021-03-06] MEDS: chlordiazePOXIDE (*CRX) 25 MG CAPSULE 50 MG PO ×2 (18:38→23:09)
--- NOTE | 2021-03-06 20:22 | ADMGEN ---
This patient, Jose Cruz Richmond, was admitted to Intensive Care Unit-7. Patient/family oriented to hospital policies and general routines including ID bracelet, bed and alarms, visiting hours, pain management, procedures, bathroom and other care routines, personal items, smoking policy, room service/diet, and visiting hours. Information on how to activate the Rapid Response Team has been discussed. Patient/Family are encouraged to report perceived risks to care and to ask questions if they do not understand what they are told or what they should do.
--- NOTE | 2021-03-06 21:10 | PM.IMHP ---
H&P: HPI History of Present Illness Date/Time: 03/06/21 21:10 Chief Complaint: Hallucination Narrative: This is a 35-year-old male with past medical history significant for ETOH dependence, patient has had admissions in the past due to alcohol withdrawal with acute delirium tremens. Patient states that he has been undergoing withdrawal or for the last states 6 days or so he has been having hallucinations auditory and visual he has been having formication bilateral lower extremity paresthesia insomnia S states that had only 9 hours of sleep in 6 days his appetite is good but has not been able to eat much he denies any nausea vomiting no abdominal pain no diarrhea no fevers no rigors no chills no shortness of breath no cough no sputum production no palpitations no PND no orthopnea. Patient was started on a banana bag in the emergency room. Preliminary workup was significant for LFTs elevation, low magnesium level. Review of Systems Review of Systems: Narrative: Patient was brought to the emergency room by his father after he has been having hallucinations delusions for the last several days or so according to patient he has been undergoing alcohol withdrawal for 6 days or so his been having out the afia and visual hallucinations as well as delusions Constitutional: Constitutional: Denies chills, Denies fatigue, Denies fever(s), Denies lethargy and Denies weakness Eyes: Eyes: Denies change in vision ENT: Denies dysphagia, Denies nasal congestion and Denies nasal discharge Cardiovascular: Cardiovascular: Denies chest pain, Denies leg edema, Denies lightheadedness, Denies radiating jaw, neck or arm pain, Denies palpitations, Denies dyspnea and Denies orthopnea Respiratory: Respiratory: Denies cough, Denies dyspnea and Denies wheezing Gastrointestinal: Gastrointestinal: Denies diarrhea, Denies nausea and Denies vomiting Genitourinary: Genitourinary: Reports no additional male genitourinary complaints Musculoskeletal: Musculoskeletal: Reports muscle cramps (Bilateral lower his extremity) Integumentary/Breasts: Skin/Breast: Denies lesions and Denies rash Neurologic: Denies Abnormal speech present, Denies abnormal gait, Denies focal weakness, Denies loss of vision and Denies Sensory deficit (Neuro) Psychiatric: Comments: Hallucinations auditory and visual as well as delusions Endocrine: Endocrine: Reports no additional endocrine complaints Hematologic/Lymphatic: Hematologic/Lymphatic: Reports no additional hematologic/lymphatic complaints Allergic/Immunologic: Allergic/Immunologic: Reports no additional allergic/immunologic complaints [facility] Past Medical History Medical History (Updated 03/06/21 @ 21:32 by Little Mcintosh MD) Acute blood loss anemia ADHD Alcoholism /alcohol abuse History withdrawal seizures 2011 Depression Hematoma of left lower leg History of duodenal ulcer Family History Family History (Updated 03/06/21 @ 20:18 by Cindy Aragon RN) Father Hypertension Mother Unknown family medical history Breast cancer Social History Social History (Updated 01/10/21 @ 10:11 by Jason Cummings MD) Social History: Patient currently lives with his mother and father. Lifelong nonsmoker. No known history of drug use. Full code. Hx of alcoholism. Full code. His parents would make medical decisions for him if he is unable Smoking status: Never smoker Alcohol intake: current Drinks per week: 35 Substance use: former Gender identity (if verbalized by the patient): Male Spiritual care concerns: No Meds Home Medications and Allergies Home Medications Medication Instructions Recorded Confirmed Type dextroamphetamine-amphetamine 10 mg PO DAILY 01/09/21 03/06/21 History [Adderall] Vyvanse 70 mg PO QAM 01/10/21 03/06/21 History Allergies Allergy/AdvReac Type Severity Reaction Status Date / Time No Known Allergies Allergy Unverified 09/27/12 20:31 Vital Signs Vital Sign
[2021-03-06] MEDS: LORazepam INJ (*CRX) 2 MG/ML VIAL 1 MG IV PUSH (21:32)
[2021-03-06] MEDS: ONDANSETRON INJ 4 MG/2 ML VIAL IV PUSH (21:32)
[2021-03-06] MEDS: MAGNESIUM SULF 2 GM/WATER 50ML 2 GM/50 ML BAG IVPB (21:57)
[2021-03-06 22:21] LABS: Magnesium 1.3 mg/dL (1.6-2.3)
[2021-03-07] VITALS (17 sets, daily range): BP systolic 113–136; BP diastolic 69–92; PULSE 78–108; RESP 13–24; TEMP 36.4–36.7; O2SAT 94–100
[2021-03-07 00:06] LABS: Glucose Point of Care 144 mg/dl (65-105)
[2021-03-07 04:32] LABS: Basophils Absolute Auto 0.1 K/mm3 (0.0-0.1); Basophils Percent Auto 1.2 % (0.2-1.2); Eosinophils Absolute Auto 0.1 K/mm3 (0-0.3); Eosinophils Percent Auto 2.2 % (0-4.4); Hematocrit 38.6 % (42.0-52.0); Immature Granulocyte Absolute 0.01 K/mm3 (0.00-0.031); Immature Granulocyte Percent A 0.2 % (0-0.5); Immature Platelet Fraction Pct 6.3 % (0.9-11.2); Lymphocytes Absolute Auto 1.11 K/mm3 (0.9-3.2); Lymphocytes Percent Auto 27.5 % (18.3-44.2); Mean Corpuscular HGB Conc 33.7 g/dl (32-36); Mean Corpuscular Hemoglobin 32.1 pg (26-34); Mean Corpuscular Volume 95.3 fl (80-100); Mean Platelet Volume 10.7 fl (7.4-10.4); Monocytes Absolute Auto 0.7 K/mm3 (0.1-0.6); Monocytes Percent Auto 17.1 % (2.6-8.5); Neutrophils Absolute Auto 2.1 K/mm3 (1.3-6.7); Neutrophils Percent Auto 51.8 % (45.5-73.1); Platelet Count Result 86 k/mm3 (150-375); Red Blood Count 4.05 M/mm3 (4.6-6.20)
[2021-03-07 04:45] LABS: Alanine Aminotransferase 98 U/L (4-50); Alkaline Phosphatase 72 U/L (38-126); Anion Gap 8 mmol/L (8-16); Aspartate Amino Transferase 200 U/L (17-59); Bilirubin,Total 0.7 mg/dL (0.2-1.3); Blood Urea Nitrogen 20 mg/dL (9-20); Calcium 8.8 mg/dL (8.4-10.2); Carbon Dioxide 29 mmol/L (22-30); Chloride 105 mmol/L (98-107); Estimated CRCL calculation 152 ml/min; Estimated Glomerular Filt Rate > 60; Glucose 129 mg/dL (75-110); Potassium 3.1 mmol/L (3.4-5.0); Sodium 142 mmol/L (137-145)
[2021-03-07] MEDS: chlordiazePOXIDE (*CRX) 25 MG CAPSULE 50 MG PO ×2 (05:09→12:15)
[2021-03-07] MEDS: POTASSIUM CHLORIDE 20 MEQ TABLET 40 MEQ PO ×2 (05:09→08:44)
[2021-03-07] MEDS: THIAMINE HCL 200 MG/2 ML VIAL 100 MG IV PUSH (08:44)
[2021-03-07] MEDS: SODIUM CHLORIDE 0.9% IV 1,000 ML 999 ML IV CONT (08:45)
[2021-03-07] MEDS: LORazepam INJ (*CRX) 2 MG/ML VIAL 1 MG IV PUSH ×2 (08:54→17:56)
--- NOTE | 2021-03-07 12:38 | WPDCNINT ---
Assessment and Plan Assessment and plan (1) Delirium tremens: Code(s): F10.231 - Alcohol dependence with withdrawal delirium Status: Acute Assessment and Plan: Patient presents with formication, auditory and visual hallucinations after not drinking alcohol for 3 days prior to admission. According the records he drinks 3 L of wine every day. -patient was started on IV fluids, -continue thiamine -patient sees [facility] protocol with p.r.n. Ativan and chlordiazepoxide (2) EtOH dependence: Code(s): F10.20 - Alcohol dependence, uncomplicated Status: Acute Assessment and Plan: Counseled patient on cessation of alcohol abuse (3) Dehydration: Code(s): E86.0 - Dehydration Status: Acute Assessment and Plan: Patient was given 1 L of IV fluids in the ER, will repeat 1 L IV fluids more here in the ICU. - Patient with adequate p.o. intake (4) Thrombocytopenia: Code(s): D69.6 - Thrombocytopenia, unspecified Status: Acute Assessment and Plan: Thrombocytopenia could be related to bone marrow suppression from alcoholism -no bleeding noted at this time, continue to monitor (5) Elevated LFTs: Code(s): R79.89 - Other specified abnormal findings of blood chemistry Status: Acute Assessment and Plan: Elevated LFTs could be related to alcoholism, fatty -coags within normal limits -continue to monitor (6) Acute hypokalemia: Code(s): E87.6 - Hypokalemia Status: Acute Assessment and Plan: Potassium was replaced Additional Plan Discussed with patient updated with his condition and plan of care. I answered all questions Code status: Full code Critical care time spent: [address] Cummings, patient probably can move out of the ICU This dictation may have been done utilizing a voice recognition system. Attempts have been made to correct errors. However, there may be uncorrected grammatical, spelling, and recognition errors present. Due to a high probability of clinically significant, life threatening deterioration, the patient required my highest level of preparedness to intervene emergently and I personally spent this critical care time directly and personally managing the patient. This critical care time included obtaining a history; examining the patient; pulse oximetry; ordering and review of studies; arranging urgent treatment with development of a management plan; evaluation of patient's response to treatment; frequent reassessment; and discussions with other providers. It was exclusive of separately billable procedures and treating other patients and teaching time. Please see Assessment and Plan section and the rest of the note for further information on patient assessment and treatment Hydraulic Tester Consult Note Consult date: 03/07/21 Time Seen: 07:11 Reason for consult: Alcohol withdrawal HPI: Jose Cruz Richmond is a 35 year old male with significant past medical history of acute blood loss anemia, ADHD, alcoholism/alcohol abuse with history of withdrawal seizures in the past, depression, history of duodenal ulcer presented to the ER on 03/06/2021 with complains of, hallucinations, detoxing from alcohol. To the records patient has not had anything to drink for the last 2-3 days. Was drinking 3 L of wine daily. He also has had insomnia, patient also complained of auditory and visual hallucination as having formication on bilateral lower extremity. Patient has only slept 9 hours in the last 6 days. His appetite has been good normally but has not eaten much. Denies any nausea, vomiting, abdominal pain. He denies any chills, fevers, shortness of breath, chest pain, cough, sputum production. Patient was started on folic acid, thiamine and multivitamin through a banana bag in the ER. He did receive some Ativan. Patient was transferred to the ICU for possible worsening of alcohol withdrawal and may have required Precedex infusio
--- NOTE | 2021-03-07 15:50 | PM.IMPN ---
Progress Note: A&P Assessment and Plan (1) Delirium tremens: Code(s): F10.231 - Alcohol dependence with withdrawal delirium Status: Acute Assessment and Plan: Patient was admited to ICU but has remained stable. Continue CIWA protocol. Contineu thiamine and will add folate. Symptoms appear to have waned. Continue supportive care. Wean Librium. (2) Hypomagnesemia: Code(s): E83.42 - Hypomagnesemia Status: Acute Assessment and Plan: Mag low at 1.2. This was replaced. Contineu to monitor and replace as needed. (3) EtOH dependence: Code(s): F10.20 - Alcohol dependence, uncomplicated Status: Acute Assessment and Plan: Patient was educated about the benefits of abstaining from alcohol. Care coordination has provided information about alcohol rehab programs. (4) Elevated LFTs: Code(s): R79.89 - Other specified abnormal findings of blood chemistry Status: Acute Assessment and Plan: AST and ALT are chronically elevated and felt related to alcoholism. TB has been as high as 6.3 but normal this admission. Will continue to monitor. (5) Thrombocytopenia: Code(s): D69.6 - Thrombocytopenia, unspecified Status: Acute Assessment and Plan: Platelet count 114K on admission and has dropped to 86K. Not on heparin. Possibly related to toxic effects of alcohol. Has had this before. Follow. (6) DVT prophylaxis: Code(s): Z29.9 - Encounter for prophylactic measures, unspecified Status: Acute Assessment and Plan: SCDs Subjective Date/time seen: 03/07/21 15:50 Interval history: 35yo male with hx of alcoholism here for alcohol withdrawal. He complains that he has been sleeping poorly past 5-6 days. He did sleep well last night here. He was having auditory and visual hallucinations prior to admission but denies having those symptoms now. No CP or SOB. No n/v. Exam Narrative: Exam Narrative: AF 98.1 135/84 100 24 95% ra Gen - NARD lying semi-recumbent in bed Chest - CTA bilaterally, nml RR CV - RRR S1/S2; Tele showing no acute dysrhytmias Abd - Soft, NT/ND, Positive BS Ext - No pedal edema Neuro - Alert and oriented. Nonfocal exam. Psych - Nml mood and affect. no tremors. Skin - Warm and dry; no diaphoresis Objective Data Vital Signs Vital Signs: Vital Signs - 24 hr 03/06/21 16:39 03/06/21 18:26 03/06/21 19:32 Temperature 98.2 F Pulse Rate 133 H 108 H 113 H Pulse Rate [Apical] Respiratory Rate 18 16 16 Blood Pressure 160/96 H 148/96 H 145/87 H Pulse Oximetry 98 98 100 03/06/21 20:00 03/06/21 21:00 03/06/21 22:00 Temperature 98.6 F Pulse Rate 110 H 99 Pulse Rate [Apical] 105 H Respiratory Rate 19 19 Blood Pressure 139/96 H 133/86 Pulse Oximetry 98 92 03/06/21 23:45 03/07/21 00:00 03/07/21 02:00 Temperature 97.9 F Pulse Rate 91 82 Pulse Rate [Apical] 91 Respiratory Rate 20 13 Blood Pressure 136/86 135/92 H Pulse Oximetry 98 94 96 03/07/21 03:57 03/07/21 03:59 03/07/21 04:00 Temperature 97.6 F Pulse Rate 88 Pulse Rate [Apical] 86 Respiratory Rate 22 H Blood Pressure 113/69 Pulse Oximetry 97 97 03/07/21 05:21 03/07/21 08:00 03/07/21 10:00 Temperature 98.1 F Pulse Rate 94 79 91 Pulse Rate [Apical] Respiratory Rate 20 17 18 Blood Pressure 121/79 121/87 130/83 Pulse Oximetry 100 95 95 03/07/21 10:01 03/07/21 12:00 03/07/21 14:00 Temperature Pulse Rate 94 100 Pulse Rate [Apical] Respiratory Rate 18 24 H Blood Pressure 135/84 Pulse Oximetry 97 95 Intake/Output Intake/Output: Intake & Output 03/04/21 03/05/21 03/06/21 03/07/21 23:59 23:59 23:59 23:59 Intake Total 1050 2070 Output Total 325 Balance 1050 1745 Meds/Results Medications: Active Medications Generic Name Dose Route Start Last Admin Trade Name Freq PRN Reason Stop Dose Admin Chlordiazepoxide HCl 50
[2021-03-07] MEDS: chlordiazePOXIDE (*CRX) 25 MG CAPSULE PO (17:51)
[2021-03-07] MEDS: FOLIC ACID 1 MG TABLET PO (17:51)
[2021-03-07] MEDS: FAMOTIDINE 20 MG TABLET PO (21:06)
--- NOTE | 2021-03-07 21:25 | PC.NURSE ---
Addendum entered by Vivian Hills RN 03/07/21 22:27: Room was not clean until 2200. Pt transfer completed at 2215. Original Note: This patient, Jose Cruz Richmond, was transferred to [facility] on 03/07/21 at 2125. Personal belongings sent with patient. Report given to KASEY Hawley. Appropriate documentation sent with patient.
[2021-03-08] MEDS: LORazepam INJ (*CRX) 2 MG/ML VIAL 1 MG IV PUSH (00:56)
[2021-03-08] MEDS: chlordiazePOXIDE (*CRX) 25 MG CAPSULE PO ×3 (00:57→12:29)
[2021-03-08 06:00] VITALS: BP 120/80; PULSE 87; RESP 16; TEMP 36.4; O2SAT 100
[2021-03-08 06:09] LABS: Hemoglobin 12.2 g/dL (14.0-18.0); Mean Corpuscular HGB Conc 33.9 g/dl (32-36); Mean Corpuscular Hemoglobin 32.2 pg (26-34); Mean Platelet Volume 10.6 fl (7.4-10.4); Platelet Count Result 78 k/mm3 (150-375); Red Blood Count 3.79 M/mm3 (4.6-6.20); Red Cell Distribution Width 12.8 % (11.5-14.5); White Blood Count 3.3 K/mm3 (4.5-10.0)
[2021-03-08 06:36] LABS: Alanine Aminotransferase 96 U/L (4-50); Albumin Level 3.6 g/dL (3.5-5.1); Alkaline Phosphatase 90 U/L (38-126); Anion Gap 5 mmol/L (8-16); Aspartate Amino Transferase 136 U/L (17-59); Bilirubin,Total 0.3 mg/dL (0.2-1.3); Blood Urea Nitrogen 9 mg/dL (9-20); Calcium 8.6 mg/dL (8.4-10.2); Carbon Dioxide 28 mmol/L (22-30); Chloride 108 mmol/L (98-107); Estimated CRCL calculation 175 ml/min; Estimated Glomerular Filt Rate > 60; Glucose 136 mg/dL (75-110); Magnesium 1.4 mg/dL (1.6-2.3); Potassium 3.7 mmol/L (3.4-5.0); Sodium 141 mmol/L (137-145)
[2021-03-08] MEDS: FAMOTIDINE 20 MG TABLET PO (08:33)
[2021-03-08] MEDS: FOLIC ACID 1 MG TABLET PO (08:33)
[2021-03-08] MEDS: THIAMINE HCL 100 MG TABLET PO (08:33)
[2021-03-08] MEDS: MAGNESIUM SULF 2 GM/WATER 50ML 2 GM/50 ML BAG IVPB (11:27)
[2021-03-08 14:00] VITALS: BP 154/87; PULSE 100; RESP 16; TEMP 36.4; O2SAT 100
--- NOTE | 2021-03-08 17:00 | PM.DS ---
DS: Admitting Diagnosis Admitting Diagnosis Admitting Diagnosis: Alcohol withdrawal with hallucinations DS: Discharge Diagnosis Discharge Diagnosis (1) Delirium tremens: Code(s): F10.231 - Alcohol dependence with withdrawal delirium Status: Acute (2) Hypomagnesemia: Code(s): E83.42 - Hypomagnesemia Status: Acute (3) EtOH dependence: Code(s): F10.20 - Alcohol dependence, uncomplicated Status: Acute (4) Elevated LFTs: Code(s): R79.89 - Other specified abnormal findings of blood chemistry Status: Acute (5) Thrombocytopenia: Code(s): D69.6 - Thrombocytopenia, unspecified Status: Acute DS: Summary Hospital Course Reason for hospitalization: 35-year-old male with known history of alcohol abuse here for withdrawal symptoms with hallucinations. Please see H&P for details. Hospital Course: Patient was admited to ICU but remained stable. He was monitored closely with [facility] protocol. He was started on thiamine and folate. He was started on scheduled Librium. He remained calm. Hallucinations resolved. Magnesium was low at times and this was replaced. Patient was educated about the benefits of abstaining from alcohol. Care coordination provided information about alcohol rehab programs. AST and ALT are chronically elevated and were elevated agian here and felt related to alcoholism. TB has been as high as 6.3 in the past but normal this admission. Platelet count 114K on admission and dropped to 78K. Not on heparin. Possibly related to toxic effects of alcohol and should improve if he abstains from alcohol. He has had thrombocytopenia before. Eli overall did well and was able to be discharged home on 03/08/21 Status at Discharge Cognitive/behavioral status at discharge: Stable Time Spent with Patient Time attestation: Total time spent providing and/or coordinating discharge services: 36 minutes Time spent: Greater than 30 minutes Exam Narrative: Exam Narrative: AF 98.1 135/84 100 24 95% ra Gen - NARD lying semi-recumbent in bed Chest - CTA bilaterally, nml RR CV - RRR S1/S2 Abd - Soft, NT/ND, Positive BS Ext - No pedal edema Neuro - Alert and oriented. Nonfocal exam. Psych - Nml mood and affect. no tremors. Skin - Warm and dry DS: Data Data Completed and Pending Labs on day of discharge: Labs from last 24 hours 03/08/21 03/08/21 05:54 05:54 WBC 3.3 L RBC 3.79 L Hgb 12.2 L Hct 36.0 L MCV 95.0 MCH 32.2 MCHC 33.9 RDW 12.8 Plt Count 78 L MPV 10.6 H Sodium 141 Potassium 3.7 Chloride 108 H Carbon Dioxide 28 Anion Gap 5 L BUN 9 D Creatinine 0.60 L Estim Creat Clear Calc 175 Estimated GFR > 60 Glucose 136 H Calcium 8.6 Magnesium 1.4 L Total Bilirubin 0.3 AST 136 H ALT 96 H Alkaline Phosphatase 90 Total Protein 6.0 L Albumin 3.6 Vitamin B12 342.0 Folate 16.0 Discharge Plan Discharge Attending physician on discharge: Jason Cummings Consulting providers: Too Theodore ; Johnny Julian Discharging Clinician: Jason Cummings Anticipated Discharge Date/Time: 03/08/21 17:01 Patient Disposition: Home, Self-Care Activity: as tolerated Diet: regular Discharge Instructions: Please avoid large gathering, wear face coverings in public and practice social distance. No Alcohol. Follow-up with your doctor in 1-2 weeks. Please call for appointment. Follow up with with your psychiatrist in 1-2 weeks. Please call for an appointment Patient Instructions: Antibiotic Form, Alcohol Dependence (DC) Stand Alone Forms: General Discharge Information Follow-up/Referrals: PHYSICIAN,SASH REPAIRER [Primary Care Provider] - Call for Appointment Discharge Medications: New chlordiazepoxide HCl 25 mg Capsule 25 mg PO DIRECTED Qty: 12 RF: 0 Continued dextroamphetamine-amphetamine [Adderall] 5 mg Tablet 10 mg PO DAILY PRN (Reaso
== END 2021-03-08 17:08 | disposition home or self-care (01) | DRG 775 ==
LOC: ANHED 17:22 → ANHICU 19:08 → ANH3MEDSUR 03-07 22:27
PROVIDERS: Emergency Medicine; Internal Medicine; Admitting Provider Internal Medicine; Emergency Provider General Practice; Visit Provider Internal Medicine
DX: F10.231 Alcohol dependence with withdrawal delirium (principal); E83.42 Hypomagnesemia; D69.6 Thrombocytopenia, unspecified; E86.0 Dehydration; R79.89 Other specified abnormal findings of blood chemistry; F90.9 Attention-deficit hyperactivity disorder, unspecified type; F32.9 Major depressive disorder, single episode, unspecified; E87.6 Hypokalemia
CPT/HCPCS: 36415; 80053; 80307; 81001; 82607; 82746; 82948; 83735; 84100; 84443; 85025; 85027; 85055; 93005; 96374; 96375; 99285; A9270; J2060; J2405; J3411; J3475; J7030; J7120

== ENCOUNTER 2022-05-10 00:20 | Inpatient (IN) | payer MEDICAID, SELFPAY ==
[2022-05-10] VITALS (18 sets, daily range): BP systolic 147–176; BP diastolic 87–110; PULSE 61–95; RESP 14–28; TEMP 36.4–37.1; O2SAT 98–100; BMI 27.9
[2022-05-10 00:56] LABS: Basophils Absolute Auto 0.1 K/mm3 (0.0-0.1); Basophils Percent Auto 0.9 % (0.2-1.2); Eosinophils Percent Auto 0.3 % (0-4.4); Hematocrit 43.6 % (42.0-52.0); Hemoglobin 15.4 g/dL (14.0-18.0); Immature Granulocyte Absolute 0.01 K/mm3 (0.00-0.031); Immature Granulocyte Percent A 0.2 % (0-0.5); Lymphocytes Absolute Auto 0.81 K/mm3 (0.9-3.2); Mean Corpuscular HGB Conc 35.3 g/dl (32-36); Mean Corpuscular Hemoglobin 30.2 pg (26-34); Mean Corpuscular Volume 85.5 fl (80-100); Mean Platelet Volume 9.4 fl (7.4-10.4); Monocytes Absolute Auto 0.6 K/mm3 (0.1-0.6); Monocytes Percent Auto 10.2 % (2.6-8.5); Neutrophils Absolute Auto 4.3 K/mm3 (1.3-6.7); Neutrophils Percent Auto 74.4 % (45.5-73.1); Platelet Count Result 191 k/mm3 (150-375); Red Cell Distribution Width 14.7 % (11.5-14.5); White Blood Count 5.8 K/mm3 (4.5-10.0)
[2022-05-10 01:13] LABS: Alanine Aminotransferase 126 U/L (6-50); Albumin Level 4.8 g/dL (3.5-5.1); Alkaline Phosphatase 135 U/L (38-126); Anion Gap 14 mmol/L (8-16); Aspartate Amino Transferase 193 U/L (17-59); Bilirubin,Total 1.3 mg/dL (0.2-1.3); Blood Urea Nitrogen 5 mg/dL (9-20); Calcium 9.5 mg/dL (8.4-10.2); Carbon Dioxide 26 mmol/L (22-30); Chloride 94 mmol/L (98-107); Estimated CRCL calculation 132 ml/min; Estimated Glomerular Filt Rate > 60; Glucose 137 mg/dL (65-110); Lipase 148 U/L (23-300); Potassium 3.6 mmol/L (3.4-5.0); Sodium 134 mmol/L (137-145)
[2022-05-10] MEDS: LORazepam INJ (*CRX) 2 MG/ML VIAL 1 MG IV PUSH ×2 (02:01→04:07)
[2022-05-10] MEDS: ONDANSETRON INJ 4 MG/2 ML VIAL IV PUSH ×3 (02:01→18:07)
[2022-05-10 02:03] LABS: Ethanol < 10 mg/dL (<10)
[2022-05-10 02:05] LABS: Appearance Urine Clear (Clear); Bilirubin Urine Negative (Negative); Blood Urine Negative (Negative); Color Urine Yellow (Yellow); Glucose Urine UA Negative (Negative); Ketones Urine 1+ mg/dL (Negative); Leukocyte Esterase Ur Negative LEU/UL (Negative); Nitrate Urine Negative (Negative); Protein Urine Negative (Negative); Specific Grav Ur 1.015 (1.001-1.035); Urobilinogen Urine 0.2 mg/dL (<2.0); pH Urine 8.5 (5.0-9.0)
[2022-05-10 02:09] LABS: Add Urine Microscopic? YES; WBC Urine 0-3 /hpf
--- NOTE | 2022-05-10 02:50 | ED.GENADULT ---
HPI - General Adult General Chief complaint: Unspecified Stated complaint: N/V, dizzy Time Seen by Provider: 05/10/22 01:04 History of Present Illness HPI narrative: 37-year-old male with history of alcohol use disorder presents because he thinks that he is going through alcohol withdrawal, he states that his last drink was 2 days ago he had been seen at another ER earlier today and had been released. He states that he is feeling nauseous, anxious, and overall unwell. He states that when he goes through withdrawal he has had seizures and hallucinations. Related Data Home Medications Medication Instructions Recorded Confirmed No Home Medications 05/10/22 05/10/22 Allergies Allergy/AdvReac Type Severity Reaction Status Date / Time No Known Allergies Allergy Unverified 05/10/22 01:09 Review of Systems Review of Systems: CONST: Chills HEENT: No sore throat C/V: No chest pain RESP: No cough GI: Nausea and vomiting : No dysuria. M/S: Body aches SKIN: No rash. NEURO: Tremors PSYCH: [No depression] [facility] Past Medical History Medical History Acute blood loss anemia ADHD Alcoholism /alcohol abuse History withdrawal seizures 2011 Depression Hematoma of left lower leg History of duodenal ulcer Family History Family History Father Hypertension Mother Unknown family medical history Breast cancer Social History Social History Social History: Patient currently lives with his mother and father. Lifelong nonsmoker. No known history of drug use. Full code. Hx of alcoholism. Full code. His parents would make medical decisions for him if he is unable Smoking status: Never smoker Alcohol intake: current Drinks per week: 35 Alcohol use details: 2 pints vodka daily Substance use: former Gender identity (if verbalized by the patient): Male Spiritual care concerns: No Exam Narrative: EXAMINATION OF ORGAN SYSTEMS/BODY AREAS: Constitutional: Vital signs per nursing GENERAL: Looks tired, laying back in bed HEAD: Normal with no signs of head trauma. EYES: EOMI, conjunctiva normal ENT: Hearing grossly intact, no tongue lag LUNGS: Nonlabored breathing. HEART: [Regular rate and rhythm] ABD: [Soft], [tender to palpation] EXT: Normal range of motion SKIN: [No rashes or lesions.] NEURO: [Alert and oriented x 3. No gross focal sensory or strength deficits.] Minimal tremors. PSYCH: Normal affect Course Vital Signs Vital signs: Vital Signs Temperature 98.0 F 05/10/22 00:28 Pulse Rate 92 05/10/22 00:28 Respiratory Rate 18 05/10/22 00:28 Blood Pressure 176/109 H 05/10/22 00:28 Pulse Oximetry 99 05/10/22 00:28 Oxygen Delivery Room Air 05/10/22 00:28 Temperature 98.0 F 05/10/22 00:28 Pulse Rate 95 05/10/22 03:46 Respiratory Rate 18 05/10/22 03:46 Blood Pressure 159/106 H 05/10/22 03:46 Pulse Oximetry 98 05/10/22 03:46 Oxygen Delivery Room Air 05/10/22 00:28 Medical Decision Making MDM Narrative Medical decision making narrative: 37-year-old male presenting with concern for alcohol withdrawal, vital signs notable for high blood pressure and slightly elevated heart rate, he looks slightly uncomfortable in the bed with some mild tremors but otherwise not in severe withdrawal with CIWA score around 4. Labs are obtained which are within acceptable limits other than LFTs which are elevated similar to his baseline. His parents at bedside are very concerned he may go into severe withdrawal in the next day, and they would really like him to be admitted. I feel this is quite reasonable as he is displaying signs of alcohol withdrawal with abnormal vitals and elevated CIWA score, case discussed with hospitalist who accepts the patient, I will treat him for withdrawal. Stable here to go to telemetry. Vital Sig
[2022-05-10 03:53] LABS: Glucose Point of Care 137 mg/dl (65-105)
--- NOTE | 2022-05-10 03:53 | PC.NURSE ---
Pt breathing heavily, states that he is not feeling well, states that he is nauseous and his tremors are worse. glucose checked at this time
[2022-05-10 04:49] LABS: SARS-CoV-2 RNA PCR Negative
--- NOTE | 2022-05-10 05:53 | ADMGEN ---
This patient, Jose Cruz Richmond, was admitted to IMU Room 201-01 at 0553. Patient/family oriented to hospital policies and general routines including ID bracelet, bed and alarms, visiting hours, pain management, procedures, bathroom and other care routines, personal items, smoking policy, room service/diet, and visiting hours. Information on how to activate the Rapid Response Team has been discussed. Patient/Family are encouraged to report perceived risks to care and to ask questions if they do not understand what they are told or what they should do.
--- NOTE | 2022-05-10 05:59 | ADMGEN ---
This patient, Jose Cruz Richmond, was admitted to IMU Room 201-01. Patient/family oriented to hospital policies and general routines including ID bracelet, bed and alarms, visiting hours, pain management, procedures, bathroom and other care routines, personal items, smoking policy, room service/diet, and visiting hours. Information on how to activate the Rapid Response Team has been discussed. Patient/Family are encouraged to report perceived risks to care and to ask questions if they do not understand what they are told or what they should do.
[2022-05-10] MEDS: THIAMINE HCL INJ 100 MG, FOLIC ACID INJ 1 MG, MULTIVITAMINS-12 INJ VIAL 1 5 ML, MULTIVI... IV CONT (08:25)
[2022-05-10] MEDS: LORazepam (*CRX) 1 MG TABLET PO ×4 (08:25→20:24)
[2022-05-10] MEDS: chlordiazePOXIDE (*CRX) 25 MG CAPSULE 50 MG PO ×2 (10:41→18:07)
--- NOTE | 2022-05-10 12:41 | PM.IMHP ---
H&P: HPI History of Present Illness Date/Time: 05/10/22 12:41 Chief Complaint: Alcohol withdrawal Narrative: This is a 37-year-old male who presents to the ED last night with going through alcohol withdrawal. He stated that his last drink was 3 days ago and had been to the ER at another facility but was released. He stated event phalanx nexus and nauseated and overall not feeling well and shaky. He had history of alcohol use for many years and had been sober for 6 7 months after which he started drinking again. Is been drinking for 3-4 days after which he did not feel while and he stopped. Started getting alcohol withdrawal symptoms with nausea not feeling well and anxiety. In the ED he was noted to pressure heart rate with CIWA score of 4. Labs were and were within acceptable limits other than LFTs are elevated similar to his baseline. Is getting admitted for alcohol withdrawal symptoms. He has been started on CIWA protocol and has been feeling a little better since he received his medications. No hallucinations currently. He does have history of seizures and hallucinations past due to alcohol withdrawal. Review of Systems Review of Systems: - CONSTITUTIONAL: Denies weight loss, fever and chills. - HEENT: Denies changes in vision and hearing - RESPIRATORY: Denies SOB and cough. - CV: Denies palpitations and CP. - GI: Denies abdominal pain, reports nausea, vomiting and no diarrhea. - : Denies dysuria and urinary frequency. - MSK: Denies myalgia and joint pain. - SKIN: Denies rash and pruritus. - NEUROLOGICAL: Denies headache and syncope. - PSYCHIATRIC: Denies recent changes in mood. Denies anxiety and depression. [facility] Past Medical History Medical History Acute blood loss anemia ADHD Alcoholism /alcohol abuse History withdrawal seizures 2012 Depression Hematoma of left lower leg History of duodenal ulcer Family History Family History Father Hypertension Mother Unknown family medical history Breast cancer Social History Social History Social History: Patient currently lives with his mother and father. Lifelong nonsmoker. No known history of drug use. Full code. Hx of alcoholism. Full code. His parents would make medical decisions for him if he is unable Smoking status: Never smoker Alcohol intake: current Drinks per week: 35 Alcohol use details: 2 pints vodka daily Substance use: former Other substance usage details: Patient states I drink a lot Gender identity (if verbalized by the patient): Male Spiritual care concerns: No Meds Home Medications and Allergies Home Medications Medication Instructions Recorded Confirmed Type No Home Medications 05/10/22 05/10/22 History Allergies Allergy/AdvReac Type Severity Reaction Status Date / Time No Known Allergies Allergy Unverified 05/10/22 01:09 Vital Signs Vital Signs - 24 hr 05/10/22 00:28 05/10/22 03:46 05/10/22 03:46 Temperature 98.0 F Pulse Rate 92 90 95 Pulse Rate [Monitor] Respiratory Rate 18 18 Blood Pressure 176/109 H 159/106 H Pulse Oximetry 99 98 Oxygen Delivery Room Air 05/10/22 01:02 05/10/22 03:46 05/10/22 04:02 Temperature Pulse Rate 90 92 79 Pulse Rate [Monitor] Respiratory Rate 22 H 20 14 Blood Pressure 164/110 H 159/106 H 167/104 H Pulse Oximetry 99 98 98 Oxygen Delivery 05/10/22 04:17 05/10/22 04:32 05/10/22 04:46 Temperature Pulse Rate 81 69 67 Pulse Rate [Monitor] Respiratory Rate 20 16 17 Blood Pressure 167/97 H 167/103 H 168/108 H Pulse Oximetry 99 100 100 Oxygen Delivery 05/10/22 06:01 05/10/22 06:03 05/10/22 08:00 Temperature 97.6 F 97.9 F Pulse Rate 76 83 82 Pulse Rate [Monitor] Respiratory Rate 24 H 28 H Blood Pressure 157/93 H 154/95 H Pulse Oximetry 100 99
[2022-05-11] VITALS (11 sets, daily range): BP systolic 145–158; BP diastolic 75–111; PULSE 65–89; RESP 12–18; TEMP 36.1–37; O2SAT 96–100
[2022-05-11] MEDS: LORazepam (*CRX) 1 MG TABLET PO ×7 (00:39→23:58)
[2022-05-11] MEDS: chlordiazePOXIDE (*CRX) 25 MG CAPSULE 50 MG PO ×5 (00:40→23:57)
[2022-05-11 04:47] LABS: Eosinophils Absolute Auto 0.1 K/mm3 (0-0.3); Eosinophils Percent Auto 1.5 % (0-4.4); Hematocrit 43.7 % (42.0-52.0); Immature Granulocyte Absolute 0.01 K/mm3 (0.00-0.031); Immature Granulocyte Percent A 0.2 % (0-0.5); Lymphocytes Absolute Auto 0.97 K/mm3 (0.9-3.2); Lymphocytes Percent Auto 23.5 % (18.3-44.2); Mean Corpuscular HGB Conc 34.3 g/dl (32-36); Mean Corpuscular Volume 87.4 fl (80-100); Mean Platelet Volume 9.7 fl (7.4-10.4); Monocytes Absolute Auto 0.5 K/mm3 (0.1-0.6); Monocytes Percent Auto 11.4 % (2.6-8.5); Neutrophils Absolute Auto 2.6 K/mm3 (1.3-6.7); Neutrophils Percent Auto 62.4 % (45.5-73.1); Platelet Count Result 165 k/mm3 (150-375); Red Cell Distribution Width 14.4 % (11.5-14.5); White Blood Count 4.1 K/mm3 (4.5-10.0)
[2022-05-11 05:01] LABS: Alanine Aminotransferase 107 U/L (6-50); Albumin Level 4.2 g/dL (3.5-5.1); Alkaline Phosphatase 103 U/L (38-126); Anion Gap 10 mmol/L (8-16); Aspartate Amino Transferase 136 U/L (17-59); Bilirubin,Total 1.2 mg/dL (0.2-1.3); Blood Urea Nitrogen 4 mg/dL (9-20); Calcium 9.4 mg/dL (8.4-10.2); Carbon Dioxide 27 mmol/L (22-30); Chloride 98 mmol/L (98-107); Estimated CRCL calculation 121 ml/min; Estimated Glomerular Filt Rate > 60; Glucose 123 mg/dL (65-110); Magnesium 1.8 mg/dL (1.6-2.3); Potassium 3.9 mmol/L (3.4-5.0); Sodium 135 mmol/L (137-145)
[2022-05-11] MEDS: ENOXAPARIN 40 MG/0.4 ML SYRINGE SUB-Q (08:09)
[2022-05-11] MEDS: ONDANSETRON INJ 4 MG/2 ML VIAL IV PUSH ×3 (08:13→16:32)
--- NOTE | 2022-05-11 12:38 | PM.IMPN ---
Progress Note: A&P Assessment and Plan (1) Alcohol use disorder: Status: Acute (2) Alcohol withdrawal: Code(s): F10.939 - Alcohol use, unspecified with withdrawal, unspecified Status: Acute Plan Acute alcohol withdrawal last drink 3 days ago. Start CIWA protocol and continue Ativan p.r.n. Also stay on Librium scheduled History of delirium treatments/hallucinations Alcohol use disorder information about alcohol rehabilitation provided to the patient which is interested DVT prophylaxis Lovenox Code status full code Care coordination consult for alcohol rehab information Subjective Date/time seen: 05/11/22 12:38 No seizure-like activity Overnite. Still having some anxiety and some tremors. Mild. Improved. Exam Narrative: GENERAL: The patient is well developed, not in acute distress, tremulous HEENT: Nonicteric sclerae, PERRLA, EOMI. Oropharynx clear. Moist mucous membranes. Conjunctivae appear well perfused. Flushed faces CHEST: Chest wall is nontender. HEART: Regular rate and rhythm without murmur, rubs, or gallops LUNGS: Clear to auscultation bilaterally. no respiratory distress ABDOMEN: Soft, positive bowel sounds, non-tender, no organomegaly. SKIN: No rash, no excessive bruising, petechiae, or purpura. NEUROLOGIC: Cranial nerves II-XII intact, alert and oriented x 3, no gross motor deficits anxious looking EXTREMITIES: no edema, cyanosis or clubbing Objective Data Vital Signs Vital Signs: Vital Signs - 24 hr 05/10/22 14:00 05/10/22 16:00 05/10/22 16:00 Temperature 98.0 F Pulse Rate 63 84 61 Pulse Rate [Monitor] Respiratory Rate 18 Blood Pressure 166/99 H Pulse Oximetry 99 Oxygen Delivery 05/10/22 18:00 05/10/22 20:00 05/10/22 20:00 Temperature 97.8 F Pulse Rate 72 79 Pulse Rate [Monitor] 79 Respiratory Rate 20 Blood Pressure 147/87 H 147/87 H Pulse Oximetry 99 Oxygen Delivery 05/10/22 20:00 05/10/22 20:00 05/10/22 22:00 Temperature Pulse Rate 79 64 66 Pulse Rate [Monitor] Respiratory Rate 20 Blood Pressure Pulse Oximetry 99 Oxygen Delivery Room Air 05/11/22 00:00 05/11/22 00:00 05/11/22 00:00 Temperature 97 F L Pulse Rate 76 76 Pulse Rate [Monitor] 76 Respiratory Rate 16 16 Blood Pressure 145/95 H 145/95 H Pulse Oximetry 98 98 Oxygen Delivery Room Air 05/11/22 00:00 05/11/22 02:00 05/11/22 04:00 Temperature Pulse Rate 72 73 83 Pulse Rate [Monitor] Respiratory Rate Blood Pressure Pulse Oximetry Oxygen Delivery 05/11/22 04:00 05/11/22 04:00 05/11/22 04:00 Temperature 98.3 F Pulse Rate 89 89 Pulse Rate [Monitor] 89 Respiratory Rate 15 15 Blood Pressure 148/90 H 148/90 H Pulse Oximetry 98 98 Oxygen Delivery Room Air 05/11/22 05:09 05/11/22 08:00 05/11/22 08:00 Temperature 97.6 F Pulse Rate 65 73 72 Pulse Rate [Monitor] Respiratory Rate 18 Blood Pressure 158/105 H Pulse Oximetry 99 Oxygen Delivery 05/11/22 10:00 05/11/22 12:00 Temperature Pulse Rate 80 74 Pulse Rate [Monitor] Respiratory Rate Blood Pressure Pulse Oximetry Oxygen Delivery Intake/Output Intake/Output: Intake & Output 05/08/22 05/09/22 05/10/22 05/11/22 23:59 23:59 23:59 23:59 Intake Total 2213.2 1000 Output Total 1380 1140 Balance 833.2 -140 Meds/Results Medications: Active Medications Generic Name Dose Route Start Last Admin Trade Name Freq PRN Reason Stop Dose Admin Chlordiazepoxide HCl 50 mg 05/10/22 09:47 05/11/22 11:44 Chlordiazepoxide (*Crx) 25 Mg Capsule PO 50 mg Q6HR ERYN Administration Enoxaparin Sodium 40 mg 05/11/22 09:00 05/11/22 08:09 Enoxaparin 40 Mg/0.4 Ml Syringe SUB-Q 40 mg DAILY ERYN Administration Lorazepam 1 mg 05/10/22 06:33 05/11/22 11:45 Lorazepam (*Crx) 1 Mg Tablet PO 1 mg Q4H PRN Administration Anxiety Ondansetron HCl 4 mg 05/10/22 12:30 05/11/22 11:45 Ondansetron
[2022-05-11] MEDS: ZOLPIDEM TARTRATE (*CRX) 5 MG TABLET PO (20:28)
[2022-05-12] VITALS (11 sets, daily range): BP systolic 114–161; BP diastolic 51–110; PULSE 70–97; RESP 12–20; TEMP 36.3–36.8; O2SAT 97–100
[2022-05-12] MEDS: LORazepam (*CRX) 1 MG TABLET PO ×2 (04:21→09:04)
[2022-05-12] MEDS: chlordiazePOXIDE (*CRX) 25 MG CAPSULE 50 MG PO ×4 (06:19→23:51)
[2022-05-12] MEDS: ENOXAPARIN 40 MG/0.4 ML SYRINGE SUB-Q (09:04)
[2022-05-12] MEDS: ONDANSETRON INJ 4 MG/2 ML VIAL IV PUSH ×3 (09:04→18:10)
--- NOTE | 2022-05-12 10:36 | PM.IMPN ---
Progress Note: A&P Assessment and Plan (1) Alcohol use disorder: Status: Acute (2) Alcohol withdrawal: Code(s): F10.939 - Alcohol use, unspecified with withdrawal, unspecified Status: Acute Plan Acute alcohol withdrawal last drink 3 days ago. Start CIWA protocol and continue Ativan p.r.n. Also stay on Librium scheduled History of delirium treatments/hallucinations Alcohol use disorder information about alcohol rehabilitation provided to the patient which is interested DVT prophylaxis Lovenox Code status full code Care coordination consult for alcohol rehab information Subjective Date/time seen: 05/12/22 10:36 Ativan given Overnite. Patient is still having some withdrawal symptoms. Improved. No seizures Exam Narrative: GENERAL: The patient is well developed, not in acute distress, tremulous HEENT: Nonicteric sclerae, PERRLA, EOMI. Oropharynx clear. Moist mucous membranes. Conjunctivae appear well perfused. Flushed faces CHEST: Chest wall is nontender. HEART: Regular rate and rhythm without murmur, rubs, or gallops LUNGS: Clear to auscultation bilaterally. no respiratory distress ABDOMEN: Soft, positive bowel sounds, non-tender, no organomegaly. SKIN: No rash, no excessive bruising, petechiae, or purpura. NEUROLOGIC: Cranial nerves II-XII intact, alert and oriented x 3, no gross motor deficits anxious looking EXTREMITIES: no edema, cyanosis or clubbing Objective Data Vital Signs Vital Signs: Vital Signs - 24 hr 05/11/22 12:00 05/11/22 12:00 05/11/22 16:00 Temperature 98.6 F 98.6 F Pulse Rate 74 82 80 Pulse Rate [Bilateral Pedal (Dorsalis Pedis) Palpation] Pulse Rate [Monitor] Respiratory Rate 12 14 Blood Pressure 151/111 H 155/99 H Pulse Oximetry 100 96 Oxygen Delivery 05/11/22 14:00 05/11/22 16:00 05/11/22 16:00 Temperature Pulse Rate 80 81 Pulse Rate [Bilateral Pedal (Dorsalis Pedis) Palpation] 81 Pulse Rate [Monitor] Respiratory Rate Blood Pressure Pulse Oximetry Oxygen Delivery 05/11/22 20:00 05/11/22 20:00 05/11/22 20:00 Temperature 96.9 F L Pulse Rate 84 84 Pulse Rate [Bilateral Pedal (Dorsalis Pedis) Palpation] Pulse Rate [Monitor] 84 Respiratory Rate 15 15 Blood Pressure 145/75 H 145/75 H Pulse Oximetry 99 99 Oxygen Delivery Room Air 05/11/22 20:00 05/11/22 21:26 05/12/22 00:00 Temperature 97.7 F Pulse Rate 71 74 78 Pulse Rate [Bilateral Pedal (Dorsalis Pedis) Palpation] Pulse Rate [Monitor] Respiratory Rate 16 Blood Pressure 114/51 L Pulse Oximetry 99 Oxygen Delivery 05/12/22 00:00 05/12/22 00:00 05/12/22 00:00 Temperature Pulse Rate 78 77 Pulse Rate [Bilateral Pedal (Dorsalis Pedis) Palpation] Pulse Rate [Monitor] 78 Respiratory Rate 15 Blood Pressure 114/51 L Pulse Oximetry 99 Oxygen Delivery Room Air 05/12/22 01:23 05/12/22 04:00 05/12/22 04:00 Temperature 98.3 F Pulse Rate 74 70 85 Pulse Rate [Bilateral Pedal (Dorsalis Pedis) Palpation] Pulse Rate [Monitor] Respiratory Rate 16 Blood Pressure 145/93 H Pulse Oximetry 100 Oxygen Delivery 05/12/22 04:00 05/12/22 04:00 05/12/22 05:34 Temperature Pulse Rate 85 78 Pulse Rate [Bilateral Pedal (Dorsalis Pedis) Palpation] Pulse Rate [Monitor] 85 Respiratory Rate 16 Blood Pressure 145/93 H Pulse Oximetry 100 Oxygen Delivery Room Air 05/12/22 07:57 05/12/22 08:00 05/12/22 08:00 Temperature 97.4 F L Pulse Rate 82 Pulse Rate [Bilateral Pedal (Dorsalis Pedis) Palpation] 84 Pulse Rate [Monitor] Respiratory Rate 12 Blood Pressure 137/95 H Pulse Oximetry 98 98 Oxygen Delivery Room Air Intake/Output Intake/Output: Intake & Output 05/09/22 05/10/22 05/11/22 05/12/22 23:59 23:59 23:59 23:59 Intake Total 2213.2 1000 540 Output Total 1389 7035 1920 Balance 833.2 -3113 -8149 Meds/Results Medications: Active Medications Generic Name Dose Rou
--- NOTE | 2022-05-12 13:30 | PC.NURSE ---
This patient, Jose Cruz Richmond, was transferred to [[id number] ] on 05/12/22 at 1335. Personal belongings sent with patient. Report given to [ ]. Appropriate documentation sent with patient.
[2022-05-12] MEDS: ZOLPIDEM TARTRATE (*CRX) 5 MG TABLET PO (20:11)
[2022-05-13] VITALS (12 sets, daily range): BP systolic 127–153; BP diastolic 78–95; PULSE 74–96; RESP 16–20; TEMP 35.8–36.7; O2SAT 97–100
--- NOTE | 2022-05-13 00:15 | PC.NURSE ---
WHILE RECONCILING THE PT MEDS HE STATED THAT HE TAKES HYDROXYUREA BUT DOES NOT KNOW THE DOSE OR FREQUENCY BECAUSE HE DOES NOT TAKE IT ALL THE TIME. I SAW IN THE DR NOTES HE HAS HX OF BEING NON COMPLAINT WITH THIS MEDICATION.
[2022-05-13] MEDS: chlordiazePOXIDE (*CRX) 25 MG CAPSULE 50 MG PO ×4 (05:47→23:52)
[2022-05-13] MEDS: LORazepam (*CRX) 1 MG TABLET PO ×3 (08:16→21:02)
[2022-05-13] MEDS: ENOXAPARIN 40 MG/0.4 ML SYRINGE SUB-Q (10:10)
--- NOTE | 2022-05-13 11:42 | PM.IMPN ---
Progress Note: A&P Assessment and Plan (1) Alcohol use disorder: Status: Acute (2) Alcohol withdrawal: Code(s): F10.939 - Alcohol use, unspecified with withdrawal, unspecified Status: Acute Plan Acute alcohol withdrawal last drink 3 days ago. Start CIWA protocol and continue Ativan p.r.n. Also stay on Librium scheduled History of delirium treatments/hallucinations Alcohol use disorder information about alcohol rehabilitation provided to the patient which is interested DVT prophylaxis Lovenox Code status full code Care coordination consult for alcohol rehab information Subjective Date/time seen: 05/13/22 11:42 1 dose of Ativan given this morning. ? Question true withdrawals. Exam Narrative: GENERAL: The patient is well developed, not in acute distress, tremulous HEENT: Nonicteric sclerae, PERRLA, EOMI. Oropharynx clear. Moist mucous membranes. Conjunctivae appear well perfused. Flushed faces CHEST: Chest wall is nontender. HEART: Regular rate and rhythm without murmur, rubs, or gallops LUNGS: Clear to auscultation bilaterally. no respiratory distress ABDOMEN: Soft, positive bowel sounds, non-tender, no organomegaly. SKIN: No rash, no excessive bruising, petechiae, or purpura. NEUROLOGIC: Cranial nerves II-XII intact, alert and oriented x 3, no gross motor deficits anxious looking EXTREMITIES: no edema, cyanosis or clubbing Objective Data Vital Signs Vital Signs: Vital Signs - 24 hr 05/12/22 12:00 05/12/22 12:00 05/12/22 12:00 Temperature 97.3 F L Pulse Rate 88 88 Pulse Rate [Bilateral Pedal (Dorsalis Pedis) Palpation] 87 Pulse Rate [Monitor] Respiratory Rate 12 Blood Pressure 144/110 H Pulse Oximetry 97 Oxygen Delivery 05/12/22 14:00 05/12/22 16:00 05/12/22 18:01 Temperature 98.2 F 97.8 F Pulse Rate 91 85 97 Pulse Rate [Bilateral Pedal (Dorsalis Pedis) Palpation] Pulse Rate [Monitor] Respiratory Rate 14 16 Blood Pressure 145/102 H 161/100 H Pulse Oximetry 97 100 Oxygen Delivery 05/12/22 20:00 05/12/22 20:00 05/12/22 20:00 Temperature 97.6 F Pulse Rate 88 Pulse Rate [Bilateral Pedal (Dorsalis Pedis) Palpation] 87 Pulse Rate [Monitor] 85 Respiratory Rate 20 Blood Pressure 132/87 132/87 Pulse Oximetry 98 Oxygen Delivery Room Air 05/13/22 00:00 05/13/22 00:00 05/12/22 20:00 Temperature 97.7 F Pulse Rate 79 79 Pulse Rate [Bilateral Pedal (Dorsalis Pedis) Palpation] 87 Pulse Rate [Monitor] 85 Respiratory Rate 20 Blood Pressure 129/83 129/83 Pulse Oximetry 97 Oxygen Delivery 05/13/22 00:00 05/13/22 03:34 05/13/22 04:00 Temperature 97.1 F L Pulse Rate 74 85 78 Pulse Rate [Bilateral Pedal (Dorsalis Pedis) Palpation] Pulse Rate [Monitor] Respiratory Rate 20 Blood Pressure 133/85 Pulse Oximetry 98 Oxygen Delivery 05/13/22 04:00 05/13/22 07:58 05/13/22 08:35 Temperature 97.9 F Pulse Rate 87 Pulse Rate [Bilateral Pedal (Dorsalis Pedis) Palpation] 87 Pulse Rate [Monitor] 85 93 Respiratory Rate 18 Blood Pressure 133/85 134/88 Pulse Oximetry 98 Oxygen Delivery Intake/Output Intake/Output: Intake & Output 05/10/22 05/11/22 05/12/22 05/13/22 23:59 23:59 23:59 23:59 Intake Total 2213.2 1000 880 55 Output Total 1380 2090 1920 1000 Balance 833.2 -1090 -1040 -945 Meds/Results Medications: Active Medications Generic Name Dose Route Start Last Admin Trade Name Freq PRN Reason Stop Dose Admin Chlordiazepoxide HCl 50 mg 05/10/22 09:47 05/13/22 05:47 Chlordiazepoxide (*Crx) 25 Mg Capsule PO 50 mg Q6HR ERYN Administration Enoxaparin Sodium 40 mg 05/11/22 09:00 05/13/22 10:10 Enoxaparin 40 Mg/0.4 Ml Syringe SUB-Q 40 mg DAILY ERYN Administration Lorazepam 1 mg 05/10/22 06:33 05/13/22 08:16 Lorazepam (*Crx) 1 Mg Tablet PO 1 mg Q4H PRN Administration Anxiety Ondansetron HCl 4 mg 05/10/22 12:30 05/12/22 18:10 Ondansetron Inj
--- NOTE | 2022-05-13 17:22 | ECG_ITS ---
Measurements Intervals [place] Rate: 94 P: 47 GA: 166 QRS: 4 QRSD: 97 T: 28 QT: 354 QTc: 443 Interpretive Statements SINUS RHYTHM NONSPECIFIC T-WAVE ABNORMALITY BORDERLINE ECG COMPARED TO ECG 03/06/2021 18:44:01 HEART RATE HAS DECREASED T-WAVE ABNORMALITY NOW PRESENT Electronically Signed On 05-14-2022 15:32:20 CDT by Isaiah Quiñones M.D.
[2022-05-13 17:58] LABS: Anion Gap 15 mmol/L (8-16); Blood Urea Nitrogen 9 mg/dL (9-20); Calcium 9.1 mg/dL (8.4-10.2); Carbon Dioxide 22 mmol/L (22-30); Chloride 97 mmol/L (98-107); Estimated CRCL calculation 121 ml/min; Estimated Glomerular Filt Rate > 60; Glucose 121 mg/dL (65-110); Magnesium 1.5 mg/dL (1.6-2.3); Phosphorus 4.2 mg/dL (2.5-4.5); Potassium 3.5 mmol/L (3.4-5.0); Sodium 134 mmol/L (137-145)
[2022-05-13] MEDS: METOPROLOL TARTRATE 12.5 MG TABLET PO (18:01)
[2022-05-14] VITALS: BP 109/72; BP 127/85; PULSE 71; PULSE 73; PULSE 87; PULSE 88; RESP 20; TEMP 36; O2SAT 98
[2022-05-14 03:33] VITALS: BP 107/65; PULSE 68; RESP 20; TEMP 36.1; O2SAT 98
[2022-05-14 04:00] VITALS: BP 107/65; PULSE 63; PULSE 87; PULSE 88
[2022-05-14] MEDS: chlordiazePOXIDE (*CRX) 25 MG CAPSULE 50 MG PO ×2 (05:43→11:44)
[2022-05-14 08:00] VITALS: PULSE 82
[2022-05-14] MEDS: METOPROLOL TARTRATE 12.5 MG TABLET PO (08:39)
[2022-05-14] MEDS: ENOXAPARIN 40 MG/0.4 ML SYRINGE SUB-Q (08:39)
[2022-05-14 08:42] VITALS: BP 129/91; PULSE 83
[2022-05-14 12:00] VITALS: PULSE 86
--- NOTE | 2022-05-14 12:06 | PM.DS ---
DS: Admitting Diagnosis Discharge Date May 14, 2022 Admitting Diagnosis Alcohol withdrawal DS: Discharge Diagnosis Discharge Diagnosis (1) Alcohol use disorder: Status: Acute (2) Alcohol withdrawal: Code(s): F10.939 - Alcohol use, unspecified with withdrawal, unspecified Status: Acute Plan Acute alcohol withdrawal last drink 3 days prior to admission. Start CIWA protocol and continue Ativan p.r.n. Also stay on Librium scheduled History of delirium treatments/hallucinations Alcohol use disorder information about alcohol rehabilitation provided to the patient which is interested DVT prophylaxis Lovenox Code status full code Care coordination consult for alcohol rehab information DS: Summary Hospital Course Hospital Course: Patient is a 37-year-old male with history of alcohol abuse and alcohol withdrawal in past. Comes in abstaining from alcohol 3 days and was having some withdrawal symptoms. Here he had no seizure-like activity. Patient does have underlying anxiety. He did receive several doses of Ativan orally and also Librium. He will be discharged on Librium and a couple days worth of Ativan to help with his anxiety. He feels good today is CIWA score was 0. He is eating and drinking and can be discharge. Follow up per psychiatry. Also follow up with a counselor. Patient is going to refrain from drinking. Time Spent with Patient Time attestation: Total time spent providing and/or coordinating discharge services: Exam Narrative: GENERAL: The patient is well developed, not in acute distress, tremulous HEENT: Nonicteric sclerae, PERRLA, EOMI. Oropharynx clear. Moist mucous membranes. Conjunctivae appear well perfused. Flushed faces CHEST: Chest wall is nontender. HEART: Regular rate and rhythm without murmur, rubs, or gallops LUNGS: Clear to auscultation bilaterally. no respiratory distress ABDOMEN: Soft, positive bowel sounds, non-tender, no organomegaly. SKIN: No rash, no excessive bruising, petechiae, or purpura. NEUROLOGIC: Cranial nerves II-XII intact, alert and oriented x 3, no gross motor deficits anxious looking EXTREMITIES: no edema, cyanosis or clubbing DS: Data Data Completed and Pending Labs on day of discharge: Labs from last 24 hours 05/13/22 17:35 Sodium 134 L Potassium 3.5 Chloride 97 L Carbon Dioxide 22 Anion Gap 15 BUN 9 D Creatinine 0.90 Estim Creat Clear Calc 121 Estimated GFR > 60 Glucose 121 H Calcium 9.1 Phosphorus 4.2 Magnesium 1.5 L Discharge Plan Discharge Attending physician on discharge: Martínez Alberto Consulting providers: Too Theodore Discharging Clinician: Martínez Alberto Patient Disposition: Home, Self-Care Activity: no preference Diet: as tolerated Patient Instructions: Antibiotic Form, Abuse of Alcohol (DC), Acute Delirium (DC), Alcohol Withdrawal (DC), Alcohol Dependence (DC) Stand Alone Forms: General Discharge Information Follow-up/Referrals: Too Theodore MD [Physician] - Discharge Medications: New chlordiazepoxide HCl 25 mg Capsule 50 mg PO Q6HR 5 Days Qty: 40 0RF Rx Instructions: titrate off over 5-7 days lorazepam 1 mg Tablet 1 mg PO DAILY PRN (Reason: Anxiety) 5 Days Qty: 5 0RF hydroxyzine HCl 10 mg Tablet 10 mg PO Q6H PRN (Reason: Anxiety) 10 Days Qty: 40 0RF metoprolol tartrate 25 mg tablet 12.5 mg PO BID Qty: 15 0RF Date of admission: 05/13/22 14:25 Primary Care Provider: PHYSICIAN,ASSISTANT PRESS OPERATOR [employer]SET Admitting Provider: Little Mcintosh V. Attending physician on admission: Lexx Waldrop Condition: Stable
== END 2022-05-14 13:10 | disposition home or self-care (01) | DRG 897 ==
LOC: ANHED 04:58 → ANHIMU 06:30 → ANH2MED 05-12 13:38
PROVIDERS: Internal Medicine; Admitting Provider Internal Medicine; Emergency Provider Emergency Medicine; Visit Provider Chiropractor
DX: F10.939 Alcohol use, unspecified with withdrawal, unspecified (principal); Z20.822 Contact with and (suspected) exposure to COVID-19; F41.9 Anxiety disorder, unspecified; F90.9 Attention-deficit hyperactivity disorder, unspecified type
CPT/HCPCS: 36415; 80048; 80053; 80307; 81001; 82948; 83690; 83735; 84100; 85025; 93005; 96365; 96366; 96372; 96374; 96375; 96376; 99285; A9270; C9803; G0378; G0379; J1650; J2060; J2405; J3411; J3475; J7042; U0003; U0005

== ENCOUNTER 2022-06-10 09:34 | Emergency (ER) | payer OTHER, MEDICAID, SELFPAY ==
[2022-06-10 09:50] VITALS: BP 124/92; PULSE 150; RESP 60; TEMP 36.6; O2SAT 100
--- NOTE | 2022-06-10 09:59 | ECG_ITS ---
Measurements Intervals [place] Rate: 149 P: 248 [place]: 86 QRS: 14 QRSD: 135 T: 46 QT: 318 QTc: 501 Interpretive Statements SINUS TACHYCARDIA VERSUS ATYPICAL ATRIAL FLUTTER WITH TWO-TO-ONE CONDUCTION LEFT BUNDLE BRANCH BLOCK COMPARED TO ECG 05/13/2022 17:48:42 PATIENT IS MORE TACHYCARDIC/POTENTIALLY IN ATRIAL FLUTTER AND HAS RATE RELATED LEFT BUNDLE BRANCH BLOCK Electronically Signed On 06-10-2022 17:04:26 CDT by Martínez Prather M.D. [facility]
--- NOTE | 2022-06-10 10:04 | ED.CHESTPAIN ---
HPI - Chest Pain General Chief Complaint: Shortness of Breath/Dyspnea Stated Complaint: trouble breathing, fatigued, nausea Time Seen by Provider: 06/10/22 09:35 Source: patient Mode of arrival: ambulatory Limitations: no limitations History of Present Illness HPI narrative: 37-year-old male presented for complaint of shortness of breath, fatigue, nausea, and urinary retention over the last 2 to 3 days. Upon arrival patient was diaphoretic and short of breath. EMS called immediately and pt transported to [facility]. Related Data Allergies Allergy/AdvReac Type Severity Reaction Status Date / Time No Known Allergies Allergy Unverified 06/10/22 11:20 Review of Systems Review of Systems: CONSTITUTIONAL: reports fatigue, body aches, sweats. CARDIOVASCULAR: Denies chest pain, palpitations, or edema. RESPIRATORY: Reports sob, denies wheezing. GASTROINTESTINAL: Denies abdominal pain,vomiting reports nausea GENITOURINARY: Reports urinary retention Denies dysuria or hematuria. SKIN: Denies rash, itching, or wounds. MUSCULOSKELETAL: Denies back pain, joint pain, or myalgia. NEUROLOGIC: Denies headache, numbness, tingling, or weakness. All systems reviewed & are unremarkable except as noted in HPI and below PMFSH Past Medical History Medical History Acute blood loss anemia ADHD Alcoholism /alcohol abuse History withdrawal seizures 2011 Depression Hematoma of left lower leg History of duodenal ulcer Family History Family History Father Hypertension Mother Unknown family medical history Breast cancer Social History Social History Social History: Patient currently lives with his mother and father. Lifelong nonsmoker. No known history of drug use. Full code. Hx of alcoholism. Full code. His parents would make medical decisions for him if he is unable Smoking status: Never smoker Alcohol intake: current Drinks per week: 35 Alcohol use details: 2 pints vodka daily Substance use: former Other substance usage details: Patient states I drink a lot Gender identity (if verbalized by the patient): Male Spiritual care concerns: No Comments At time of signature, I have reviewed and agree with nursing past medical, surgical, social and family history unless otherwise noted. Please see nursing chart for further information. There is no relevant family history pertinent to the presenting complaint Exam Narrative: GENERAL: toxic-appearing, diaphoretic EYES: EOMI. Conjunctivae normal. ENT: Mucous membranes pink and moist. CHEST: Tachypnea, No respiratory distress. o2 sat 98% RA LCTA. Speaking short sentences HEART: Irregular, tachycardic ABDOMEN: Soft, tender, nondistended SKIN: Warm, moist, pale Normal skin turgor. NEURO: Alert and oriented x3. Course Course Emergency Course: Patient is aware of diagnosis, understands and agrees to treatment plan. Portions of this record may have been created with voice recognition software Level of Care: Express Care Visit Vital Signs Vital signs: Vital Signs Temperature 97.8 F 06/10/22 09:50 Pulse Rate 150 H 06/10/22 09:50 Respiratory Rate 60 H 06/10/22 09:50 Blood Pressure 124/92 H 06/10/22 09:50 Pulse Oximetry 100 06/10/22 09:50 Oxygen Delivery Room Air 06/10/22 09:50 Temperature 97.8 F 06/10/22 09:50 Pulse Rate 150 H 06/10/22 09:50 Respiratory Rate 60 H 06/10/22 09:50 Blood Pressure 124/92 H 06/10/22 09:50 Pulse Oximetry 100 06/10/22 09:50 Oxygen Delivery Room Air 06/10/22 09:50 Transfer Transfered to: [facility]: [facility] Transfer rationale: Pt is agreeable to transfer to [facility] via ambulance. Risks of transportation reviewed with pt including injury, worsening of condition and . v/u. Mother notified, per pt request.
== END 2022-06-10 10:10 | disposition short-term general hospital (02) ==
PROVIDERS: Emergency Provider Nurse Practitioner Family
DX: R06.02 Shortness of breath (principal); R33.9 Retention of urine, unspecified
CPT/HCPCS: 93005; 99215; G0463

== ENCOUNTER 2022-06-10 10:22 | Inpatient (IN) | payer OTHER, MEDICAID, SELFPAY ==
[2022-06-10] VITALS (16 sets, daily range): BP systolic 82–140; BP diastolic 45–88; PULSE 73–144; RESP 16–44; TEMP 36.6–37.5; O2SAT 92–100; BMI 28.9
--- NOTE | ~2022-06-10 | XR_ITS ---
EXAMINATION: XR chest 1V portable INDICATION: Epigastric pain TECHNIQUE: Portable AP chest at 1310 COMPARISON: 01/12/2021 FINDINGS: There is mild atelectasis of the lung bases. No pleural effusion or pneumothorax. The cardi omediastinal silhouette is normal. IMPRESSION: 1. Mild atelectasis. Reviewed, dictated and finalized at location A. IMPRESSION: 1. Mild atelectasis.
--- NOTE | ~2022-06-10 | XR_ITS ---
EXAMINATION: XR chest 2V DATE: 06/17/2022 10:37 INDICATION: Hypoxia. TECHNIQUE: Frontal and lateral views of the chest were obtained. COMPARISON: Chest single view 06/13/2022, chest CT 06/14/2022 FINDINGS: There is mild atelectasis in left lower lung zone. There is a small left pleural effusion. No pneumothorax. The heart size is normal. A right upper extremity peripherally inserted central veno us catheter (PICC) is seen with tip in the superior vena cava. IMPRESSION: 1. Stable small left pleural effusion. 2. Mild atelectasis in left lower lung zone. Reviewed, dictated and finalized at location A.
--- NOTE | ~2022-06-10 | US_ITS ---
EXAMINATION: US abdomen limited DATE: 06/10/2022 19:11 INDICATION: Pancreatitis TECHNIQUE: Multiple grayscale and Doppler ultrasound images of limited portions of the abdomen were o btained. COMPARISON: CT chest abdomen and pelvis 06/10/2022. FINDINGS: Echogenic pancreas with trace fluid. Echogenic liver parenchyma. No surface nodularity. Nor mal hepatopetal flow in the main portal vein. The gallbladder is normal with no abnormal wall thicken ing, pericholecystic fluid or stones. The common bile duct measures 4 mm. There was no sonographic Mu rphy sign. Small volume ascites. IMPRESSION: Sonographic findings consistent with pancreatitis. Hepatic steatosis. Small volume ascites. Reviewed, dictated and finalized at location K. IMPRESSION: Sonographic findings consistent with pancreatitis. Hepatic steatosis. Small vol ume ascites.
--- NOTE | ~2022-06-10 | XR_ITS ---
EXAMINATION: XR chest 1V portable INDICATION: Shortness of breath TECHNIQUE: Portable AP chest at 1132 hours COMPARISON: 06/12/2022 FINDINGS: There are minimal airspace opacities of the left lung base. No pleural effusion or pneumoth orax. The cardiomediastinal silhouette is normal. A right upper extremity PICC ends with its tip in t he midsuperior vena cava. IMPRESSION: 1. Minimal left basilar airspace opacity, consistent with atelectasis versus pneumonia. Reviewed, dictated and finalized at location A. IMPRESSION: 1. Minimal left basilar airspace opacity, consistent with atelectasis versus pn eumonia.
--- NOTE | ~2022-06-10 | XR_ITS ---
EXAMINATION: XR abdomen obstructive series DATE: 06/11/2022 08:41 INDICATION: Abdominal distention. TECHNIQUE: Upright and supine views of the abdomen were obtained. COMPARISON: CT abdomen and pelvis 06/10/2022 FINDINGS: There are no dilated loops of bowel. No free intraperitoneal gas. There is a right groin ca theter with tip in right common iliac vein. IMPRESSION: 1. Nonobstructive bowel gas pattern. Reviewed, dictated and finalized at location A.
--- NOTE | ~2022-06-10 | CT_ITS ---
EXAMINATION: CT chest abdomen pelvis wo con DATE: 06/10/2022 12:52 INDICATION: Shortness of breath. Elevated lactic acid. Constipation. Diffuse abdominal pain. TECHNIQUE: Computed tomography (CT) of the chest, abdomen, and pelvis was performed without intraveno us contrast. Automated exposure control and iterative reconstruction technique were employed. The dos e-length product was 1187.87 mGy-cm. COMPARISON: CT abdomen pelvis dated 01/10/2021 FINDINGS: CHEST CT: Decreased lung volumes with discoid atelectasis in the lingula, right middle and bilateral lower lobe s. Additional mild dependent atelectasis in bilateral lower lobes with very small left pleural effusi on. Heart size is normal. Small amount of atherosclerotic coronary artery calcific lesion along the l eft anterior descending coronary artery. No pericardial effusion. Thoracic aorta is normal in caliber . No pathologically enlarged thoracic lymphadenopathy. Chronic appearing mild anterior wedging at T5- T7. ABDOMEN/PELVIS CT: Prominent diffuse hepatic steatosis. There is marked inflammatory stranding diffusely around the panc reas along with nonloculated acute peripancreatic fluid collections consistent with acute pancreatiti s. The retroperitoneal fluid tracks caudally along the bilateral anterior pararenal spaces and paraco lic gutters, left greater than right. Gallbladder, spleen with a couple splenules, left adrenal gland and bilateral kidneys are normal. 4.1 x 3.1 cm right adrenal mass primarily of macroscopic fat atten uation along with some peripheral calcifications consistent with a myelolipoma. Welch catheter in the decompressed bladder. Bowels including the appendix are unremarkable. Small amount of nonloculated a scites in the pelvis. No abscess or free intraperitoneal gas. Right common femoral central venous cat heter with distal tip at the distal right common iliac vein. Mild lumbar levocurvature with minimal s pondylosis. IMPRESSION: 1. Acute interstitial pancreatitis with prominent peripancreatic edema and nonloculated acute peripan creatic fluid collections. 2. Prominent diffuse hepatic steatosis. 3. Scattered discoid atelectasis in the bilateral lower lungs. No other acute cardiopulmonary disease . Reviewed, dictated and finalized at location A. IMPRESSION: 1. Acute interstitial pancreatitis with prominent peripancreatic edema and nonl oculated acute peripancreatic fluid collections. 2. Prominent diffuse hepatic steatosis. 3. Scattered discoid atelectasis in the bilateral lower lungs. No other acute c ardiopulmonary disease.
--- NOTE | ~2022-06-10 | CT_ITS ---
EXAMINATION: CT chest abdomen pelvis w con DATE: 06/14/2022 06:59 INDICATION: Abdominal pain. TECHNIQUE: Computed tomography (CT) of the chest, abdomen, and pelvis was performed with 100 mL Omnip aque 350 intravenous contrast. Automated exposure control and iterative reconstruction technique were employed. The dose-length product was 1457.50 mGy-cm. COMPARISON: CT 06/10/2022 FINDINGS: CHEST CT: There is a small left pleural effusion. There is dependent atelectasis bilaterally, worst in left low er lobe. There are groundglass opacities and smooth septal thickening in the lungs, consistent with m ild pulmonary edema. The heart size is normal. There is a trace pericardial effusion. A right upper e xtremity peripherally inserted central venous catheter (PICC) is seen with tip at the superior cavoat rial junction. Bilateral gynecomastia is noted. There is mild chronic height loss of multiple thoraci c vertebral bodies. There is mild thoracic spondylosis. ABDOMEN/PELVIS CT: There is diffuse hepatic steatosis. The gallbladder is distended. The spleen is normal. There is flui d and fat stranding around the pancreas. There is nonenhancement in a portion of the tail of the panc reas. There is fluid and fat stranding adjacent to the stomach and extending inferiorly to the pelvis , left worse than right. Left adrenal gland is normal. There is a 4.2 cm mass with fat in right adre nal gland, consistent with a myelolipoma. The kidneys are normal. The bladder is decompressed by a Fo matilde catheter. There are no dilated loops of bowel. The appendix is normal. There is prominent fat in the umbilicus that may be a hernia. There is a small right inguinal hernia containing fat. There are no pathologically enlarged lymph nodes. There is mild lumbar spondylosis. IMPRESSION: 1. Acute necrotic pancreatitis with interval worsening of findings. 2. Mild pulmonary edema and small left pleural effusion. 3. Gallbladder distention, which may be secondary to fasting or less likely acute cholecystitis. 4. Diffuse hepatic steatosis. Reviewed, dictated and finalized at location A. IMPRESSION: 1. Acute necrotic pancreatitis with interval worsening of findings. 2. Mild pulmonary edema and small left pleural effusion. 3. Gallbladder distention, which may be secondary to fasting or less likely acu te cholecystitis. 4. Diffuse hepatic steatosis.
--- NOTE | ~2022-06-10 | US_ITS ---
US renal BI DATE: 06/11/2022 11:25 INDICATION: Acute kidney injury. Evaluate for hydronephrosis TECHNIQUE: Real-time and color flow imaging of the kidneys, imaging of the urinary bladder area COMPARISON: 06/10/2022 CT chest abdomen pelvis FINDINGS: The right kidney measures 11.9 cm length, the left kidney 12.9 cm length. No hydronephrosis or renal space-occupying mass lesion is evident. Mild ascites is noted. The urinary bladder is evacuated and not evaluated. IMPRESSION: No renal mass lesion or hydronephrosis is detected Mild ascites Reviewed, dictated and finalized at Location A. Reviewed, dictated and finalized at location B.
--- NOTE | ~2022-06-10 | XR_ITS ---
EXAMINATION: XR chest 1V portable DATE: 06/12/2022 15:53 INDICATION: Cardiomyopathy TECHNIQUE: frontal view of the chest was obtained. COMPARISON: Chest radiograph dated 06/10/2022 FINDINGS: Lung volumes remain small. Persistent linear discoid atelectasis at the left costophrenic angle. No n ew airspace opacities, pulmonary edema, pleural effusion or pneumothorax. Cardiomediastinal silhouett e is normal. Right upper extremity peripherally inserted central venous catheter (PICC) tip at the c audal superior vena cava. IMPRESSION: 1. Persistent small lung volumes with mild left basilar discoid atelectasis/scarring. Reviewed, dictated and finalized at location A. IMPRESSION: 1. Persistent small lung volumes with mild left basilar discoid atelectasis/sca rring.
--- NOTE | 2022-06-10 10:40 | ED.ABDPAIN ---
HPI - Abdominal Pain General Chief Complaint: Abdominal Pain Stated Complaint: dysuria, abd pain, dyspnea History of Present Illness HPI narrative: 37-year-old male with a history of alcohol abuse presents the emergency room for multiple complaints. Patient was seen at a local urgent care this morning for dysuria, lower abdominal pain, upper abdominal pain and shortness of breath. Patient states that he has not had a bowel movement in 5 days, and began to develop lower abdominal pain for 2 days. Patient states he has not voided in 48 hours. Denies any recent alcohol use. Denies fever Related Data Allergies Allergy/AdvReac Type Severity Reaction Status Date / Time No Known Allergies Allergy Unverified 06/10/22 11:20 Review of Systems Review of Systems: CONSTITUTIONAL: Reports diaphoresis EYES: Denies visual changes, redness, or discharge. ENT: Denies rhinorrhea, congestion, sore throat, or otalgia. CARDIOVASCULAR: Denies chest pain, palpitations, or edema. RESPIRATORY: Denies cough or dyspnea. GASTROINTESTINAL: Reports lower abdominal pain, constipation GENITOURINARY: Reports decreased urinary output SKIN: Denies rash or itching. MUSCULOSKELETAL: Denies back pain, joint pain, or myalgia. NEUROLOGIC: Denies headache, numbness, dizziness, or weakness. PSYCHIATRIC: Denies anxiety or depression. [facility] Past Medical History Medical History Acute blood loss anemia ADHD Alcoholism /alcohol abuse History withdrawal seizures 2011 Depression Hematoma of left lower leg History of duodenal ulcer Family History Family History Father Hypertension Mother Unknown family medical history Breast cancer Social History Social History Social History: Patient currently lives with his mother and father. Lifelong nonsmoker. No known history of drug use. Full code. Hx of alcoholism. Full code. His parents would make medical decisions for him if he is unable Smoking status: Never smoker Alcohol intake: current Drinks per week: 35 Alcohol use details: 2 pints vodka daily Substance use: former Other substance usage details: Patient states I drink a lot Gender identity (if verbalized by the patient): Male Spiritual care concerns: No Exam Narrative: GENERAL: Ill-appearing, well-nourished, no physical limitations, and in moderate acute distress. HEAD: Normocephalic, atraumatic. EYES: Conjunctivae normal, PERRLA and EOMI. CHEST: Clear to auscultation. Tachypneic. No wheezes rales or rhonchi. HEART: Tachycardic and regular rhythm. No murmur heard. Normal peripheral pulses. ABDOMEN: Soft, suprapubic tenderness, RUQ tenderness, periumbilical tenderness, distended BACK: No CVA tenderness EXTREMITIES: Normal range of motion. No edema. No clubbing or cyanosis SKIN: Cyanotic and cool hands, Diaphoretic NEURO: No focal deficits. Alert and oriented x3. MAEW. CN's II-XI intact bilaterally, normal gait PSYCH: Cooperative. Normal mood and affect. MDM - Abdominal Pain Lab Data Result diagrams: 06/10/22 10:43 06/10/22 10:43 Labs: Lab Results 06/10/22 06/10/22 06/10/22 Range/Units 10:36 10:36 10:43 WBC 25.2 H (4.5-10.0) K/mm3 RBC 6.74 H (4.6-6.20) M/mm3 Hgb 21.4 H D (14.0-18.0) g/dL Hct 60.6 H (42.0-52.0) % MCV 89.9 (80-100) fl MCH 31.8 (26-34) pg MCHC 35.3 (32-36) g/dl RDW 17.6 H (11.5-14.5) % Plt Count 195 (150-375) k/mm3 MPV 10.4 (7.4-10.4) fl Immature Gran % (Auto) Not Reportable Neut % (Auto) Not Reportable Lymph % (Auto) Not Reportable [place] % (Auto) Not Reportable Eos % (Auto) Not Reportable Baso % (Auto) Not Reportable Lymph # (Auto) Not Reportable [place] # (Auto) Not Reportable Eos # (Auto) Not Reportable Baso # (Auto
[2022-06-10] MEDS: SODIUM CHLORIDE 0.9% IV 1,000 ML 999 ML IV CONT ×3 (10:46→14:51)
[2022-06-10] MEDS: HYDROmorphone HCL INJ (*CRX) 1 MG/ML SYR 0.5 MG IV PUSH (10:46)
[2022-06-10 10:49] LABS: Hematocrit 60.6 % (42.0-52.0); Hemoglobin 21.4 g/dL (14.0-18.0); Mean Corpuscular HGB Conc 35.3 g/dl (32-36); Mean Corpuscular Hemoglobin 31.8 pg (26-34); Mean Corpuscular Volume 89.9 fl (80-100); Mean Platelet Volume 10.4 fl (7.4-10.4); Platelet Count Result 195 k/mm3 (150-375); Red Blood Count 6.74 M/mm3 (4.6-6.20); Red Cell Distribution Width 17.6 % (11.5-14.5); White Blood Count 25.2 K/mm3 (4.5-10.0)
[2022-06-10 11:09] LABS: Ethanol < 10 mg/dL (<10)
[2022-06-10 11:14] LABS: Alanine Aminotransferase 85 U/L (6-50); Albumin Level 4.9 g/dL (3.5-5.1); Alkaline Phosphatase 149 U/L (38-126); Anion Gap 27 mmol/L (8-16); Aspartate Amino Transferase 179 U/L (17-59); Bilirubin,Total 4.5 mg/dL (0.2-1.3); Blood Urea Nitrogen 20 mg/dL (9-20); Calcium 9.1 mg/dL (8.4-10.2); Carbon Dioxide 11 mmol/L (22-30); Chloride 89 mmol/L (98-107); Estimated Glomerular Filt Rate 26; Glucose 300 mg/dL (65-110); Potassium 5.6 mmol/L (3.4-5.0); Sodium 127 mmol/L (137-145)
[2022-06-10 11:14] LABS: Lactic Acid Reflex 10.1 mmol/L (0.7-2.0)
[2022-06-10 11:14] LABS: Alveolar/Arterial O2 Gradient 34.9 mmHg; Base Excess ABG -3.3 mEq/l (+/-2.0); Fractional Inspired Oxygen 21 %; HCO3 ABG 16.5 mEq/l (22.0-26.0); Oxygen Content ABG 27.9 %vol (16.0-22.0); Oxygen Saturation ABG 97.6 % (95.0-100.0); Oxyhemoglobin 96.4 % THb (90.0-100.0); PO2 ABG 88.7 mmHg (80.0-100.0); PO2 FiO2 Ratio Arterial Blood 4.22 %; Total Hemoglobin 20.6 g/dL (12.0-18.0); pH ABG 7.498 (7.350-7.450)
[2022-06-10 11:16] LABS: Band Neutrophils Percent 37 % (0-6); Lymphocytes Absolute Manual 1.26 K/mm3 (1.1-4.5); Monocytes Absolute Manual 1.26 K/mm3 (0.1-0.90); Monocytes Percent Manual 5 % (3-9); Neutrophils Absolute Manual 22.68 K/mm3 (1.3-6.7); Neutrophils Percent Manual 53 % (46-73); Platelet Estimate Adequate (Adequate); Total Cells Counted 100
[2022-06-10 11:17] LABS: Device ROOM AIR; Modified Allen's Test Pass; PCO2 ABG 21.8 mmHg (35.0-45.0); Site Drawn RIGHT RADIAL
[2022-06-10 11:29] LABS: Troponin I 0.045 ng/mL (0.000-0.034)
--- NOTE | 2022-06-10 12:51 | WPDPROCEDUR ---
Procedures Central Line Placement Right Femoral: Central Line Date: 06/10/22 Central Line Time: 11:30 Discussed w/ the patient/family/POA,the placement of a central venous catheter, including its clinical necessity/indication & associated potential risks, benifits and alternatives.: Yes The patient/family/POA understand(s) and acknowledge(s) the need to proceed with central venous catheter insertion as an important element of the patient's clinical management.: Yes Consent: I have discussed with the patient and/or surrogate, the non-emergent placement of a central venous catheter, including its clinical necessity/indication and associated potential risks and complications. The patient and/or surrogate understand(s) and acknowledge(s) the need to proceed with central venous catheter insertion as an important element of the patient's clinical management. Time Out Performed: Yes Patient Position: supine Patient placed on monitor/pulse ox: Yes Provider Prep: mask, sterile gown, sterile gloves, Max. sterile barrier precautions, cap and hand hygiene with conventional soap/water or alcohol based hand rub Central line prep: Povidone-Iodine 1% Local anesthesia used: lidocaine 1% (5) Amount of anesthesia used (ml): 5 Central line lumen inserted: triple Length (cm): 20 Depth of Insertion (cm): 20 Post Procedure: sutured in place, good blood return, all ports aspirated, flushed, capped, transparent dressing and aseptic technique maintained throughout procedure Patient tolerated procedure: well Complications: none
--- NOTE | 2022-06-10 12:52 | WPDCNINT ---
Assessment and Plan Assessment and plan (1) Sepsis: Code(s): A41.9 - Sepsis, unspecified organism Status: Acute Assessment and Plan: Patient admitted with sepsis with likely source is abdomen No IV access hence emergent central venous catheter was placed in right femoral vein 3 L fluid IV fluid boluses ordered for 30 mL/kg it will be followed by IV fluids with bicarb Blood cultures UA and urine culture CT abdomen pelvis is pending Empiric imipenem antibiotics Blood pressure is adequate at this time but may need vasopressor support (2) Acute kidney injury: Code(s): N17.9 - Acute kidney failure, unspecified Status: Acute Assessment and Plan: Likely secondary to sepsis, NSAIDs use and possible obstruction CT abdomen pelvis is pending Check CK level Check urine electrolytes and UA IV fluids bolus and infusion IV bicarb for metabolic acidosis (3) Elevated troponin: Code(s): R77.8 - Other specified abnormalities of plasma proteins Status: Acute Assessment and Plan: Elevated troponin likely secondary to sepsis as patient is otherwise 37 years old with no coronary artery disease or risk factors EKG is abnormal as patient has significant sinus tachycardia Will repeat EKG after fluid resuscitation Continue serial troponins Check echo Consider Cardiology consultation depending on the levels Hold anticoagulation or aspirin at this time (4) Abdominal pain: Code(s): R10.9 - Unspecified abdominal pain Status: Acute Assessment and Plan: CT abdomen pelvis is pending (5) Metabolic acidosis: Code(s): E87.2 - Acidosis Status: Acute Assessment and Plan: Severe metabolic acidosis secondary to sepsis and ZOILA 2 amps of IV bicarb IV push given Will start maintenance IV fluids with IV bicarb once IV fluid bolus has been administered (6) Shortness of breath: Code(s): R06.02 - Shortness of breath Status: Acute Assessment and Plan: Patient appears to be tachypneic secondary to metabolic acidosis and respiratory compensation Chest x-ray ordered and pending (7) Polysubstance abuse: Code(s): F19.10 - Other psychoactive substance abuse, uncomplicated Status: Acute Assessment and Plan: Patient denies any recent use of drugs or alcohol. He does admit to taking Advil for abdominal pain Check salicylate level, alcohol level and urine drug screen (8) Dehydration: Code(s): E86.0 - Dehydration Status: Acute Assessment and Plan: Lab work and clinical exam suggests significant dehydration Patient is now getting IV fluid bolus which will be followed with IV fluid infusion Monitor Blood pressure adequate at this time Plan DVT prophylaxis -Lovenox Stress ulcer prophylaxis -PPI Nutrition -NPO Code Status - Full Code Total Critical Care Time - 35 minutes Due to a high probability of clinically significant, life threatening deterioration, the patient required my highest level of preparedness to intervene emergently and I personally spent this critical care time directly and personally managing the patient. This critical care time included obtaining a history; examining the patient; pulse oximetry; ordering and review of studies; arranging urgent treatment with development of a management plan; evaluation of patient's response to treatment; frequent reassessment; and discussions with other providers. It was exclusive of separately billable procedures and treating other patients and teaching time. Please see Assessment and Plan section and the rest of the note for further information on patient assessment and treatment [employer] Unit Leader Consult Note Consult date: 06/10/22 Reason for consult: Sepsis, ZOILA, acidosis HPI: Jose Cruz Richmond is a 37 year old male with past medical history alcohol abuse, fatty liver alcohol liver disease who was recently discharged on 05/14 from [facility] after treatment for alcohol with
[2022-06-10 12:58] LABS: Lipase 1929 U/L (23-300)
[2022-06-10] MEDS: SODIUM BICARBONATE 8.4% 50 MEQ/50 ML SYRINGE 100 MEQ (13:16)
[2022-06-10 13:24] LABS: Add Urine Microscopic? YES; Appearance Urine Turbid (Clear); Bilirubin Urine 2+ (Negative); Blood Urine 2+ (Negative); Color Urine Orange (Yellow); Glucose Urine UA Negative (Negative); Ketones Urine 1+ mg/dL (Negative); Leukocyte Esterase Ur Negative LEU/UL (Negative); Nitrate Urine Positive (Negative); Protein Urine 3+ mg/dL (Negative); pH Urine 8.5 (5.0-9.0)
[2022-06-10 13:29] LABS: INR 1.2; Partial Thromboplastin Time 20.6 SECONDS (22.3-36.8)
[2022-06-10 13:31] LABS: Hyaline Casts Urine 50+ /lpf; Mucus Urine Heavy /lpf; Squamous Epithelial Cell Urine Moderate /hpf (Few)
[2022-06-10 13:38] LABS: D Dimer 3.84 ug/mL (<0.48)
[2022-06-10 13:44] LABS: Magnesium 1.4 mg/dL (1.6-2.3)
[2022-06-10 13:52] LABS: Reflex Lactic Acid Yes or No Add Lactic
[2022-06-10] MEDS: MORPHINE SULFATE (*CRX) 4 MG/ML INJ IV PUSH (13:57)
[2022-06-10] MEDS: PANTOPRAZOLE SODIUM IV 40 MG VIAL IV PUSH (13:58)
[2022-06-10 14:01] LABS: Salicylate < 1.0 mg/dL (2-20)
[2022-06-10 14:19] LABS: Creatine Kinase 207 U/L (55-170)
[2022-06-10 14:30] LABS: Barbiturate Screen Urine Negative (Negative)
--- NOTE | 2022-06-10 14:30 | ADMGEN ---
This patient, Jose Cruz Richmond, was admitted to Intensive Care Unit-9. Patient/family oriented to hospital policies and general routines including ID bracelet, bed and alarms, visiting hours, pain management, procedures, bathroom and other care routines, personal items, smoking policy, room service/diet, and visiting hours. Information on how to activate the Rapid Response Team has been discussed. Patient/Family are encouraged to report perceived risks to care and to ask questions if they do not understand what they are told or what they should do.
[2022-06-10 14:34] LABS: Cannabinoid Screen Urine Positive (Negative); Cocaine Screen Urine Negative (Negative); Methadone Screen Urine Negative (Negative); Opiate Screen Urine Negative (Negative); Phencyclidine Screen Urine Negative (Negative)
--- NOTE | 2022-06-10 14:36 | ECG_ITS ---
Measurements Intervals [place] Rate: 117 P: 44 DE: 184 QRS: 38 QRSD: 114 T: 208 QT: 357 QTc: 500 Interpretive Statements SINUS TACHYCARDIA INCOMPLETE LEFT BUNDLE BRANCH BLOCK COMPARED TO ECG 06/10/2022 10:00:49 HEART RATE IS REDUCED Electronically Signed On 06-10-2022 17:12:57 CDT by Martínez Prather M.D.
[2022-06-10 14:37] LABS: Amphetamine Screen Urine Negative (Negative)
[2022-06-10 14:56] LABS: Benzodiazepines Screen Urine Positive (Negative)
[2022-06-10 15:08] LABS: Creatinine Urine 141.6 mg/dL
[2022-06-10] MEDS: ASPIRIN 325 MG ENTERIC TABLET PO (15:08)
[2022-06-10] MEDS: MAGNESIUM SULF 2 GM/WATER 50ML 2 GM/50 ML BAG IVPB (15:09)
[2022-06-10] MEDS: SODIUM BICARBONATE 8.4% 150 MEQ in WATER, STERILE FOR INJECTION 950 ML IV CONT (15:09)
[2022-06-10 15:10] LABS: Sodium Urine Random 52 meq/L
[2022-06-10 15:18] LABS: Lactic Acid 5.2 mmol/L (0.7-2.0)
[2022-06-10 15:28] LABS: Troponin I 0.029 ng/mL (0.000-0.034)
--- NOTE | 2022-06-10 15:30 | PM.IMHP ---
H&P: HPI History of Present Illness Date/Time: 06/10/22 15:30 Chief Complaint: Shortness of breath, abdominal pain, difficulties urinating. Narrative: This is a 37-year-old male with history of alcohol abuse (he reports no alcohol intake for the past month), fatty and alcoholic liver disease, and duodenal ulcers who presented to the emergency department via EMS from urgent care for evaluation of shortness of breath, abdominal pain, and difficulties urinating. He has not felt well for 3 or 4 days with several symptoms including abdominal bloating, hiccups, nausea with dry heaves, and poor oral intake. A couple of days ago he noticed that he was having difficulties urinating and he estimates he has only urinated 3 mL in the past couple of days. He has diffuse abdominal pain that he has difficulties describing but it is severe, 8/10 on arrival to ER. He has gotten progressively more weak and he has not really been out of bed in the last 48 hours. Today he was feeling very short of breath and describes what sounds like [place]uls respirations, which led him to urgent care. He feels extremely weak when standing and he had to be wheeled into urgent care today. He was immediately brought to the ER via EMS where he was found to be septic with an acute kidney injury and lactic acidosis. CT of the abdomen and pelvis showed evidence of pancreatitis and he is being admitted in this setting. Review of Systems Review of Systems: Twelve systems were reviewed and are negative except for as per HPI. [facility] Past Medical History Medical History Alcohol withdrawal seizure (09/2012) Alcoholism Anxiety Attention deficit hyperactivity disorder (ADHD) Depression Duodenal ulcer (05/2012) Surgical History Surgical History History of colonoscopy (05/2012) History of esophagogastroduodenoscopy (05/2012) Family History Family History Father Hypertension Mother Breast cancer Social History Social History (Updated 06/12/22 @ 22:17 by Marianna Johnson PA-C) Social History: Surrogate medical decision maker: Jose Cruz and Wandy Richmond, parents. Code status: Full code. Smoking status: Never smoker Alcohol intake: unknown Drinks per week: 35 Alcohol use details: 2 pints vodka daily. 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 Spiritual care concerns: No Meds Home Medications and Allergies Home Medications Medication Instructions Recorded Confirmed Type No Home Medications 06/10/22 06/10/22 History Allergies Allergy/AdvReac Type Severity Reaction Status Date / Time No Known Allergies Allergy Verified 06/10/22 14:36 Vital Signs Vital Signs - 24 hr 06/10/22 11:12 06/10/22 10:24 06/10/22 13:27 Temperature Pulse Rate 144 H 73 144 H Respiratory Rate 40 H Blood Pressure 105/87 124/79 115/80 Pulse Oximetry 94 100 06/10/22 11:15 06/10/22 13:32 Temperature 98.2 F Pulse Rate 142 H 127 H Respiratory Rate 44 H Blood Pressure 82/45 L 140/87 Pulse Oximetry 96 Exam Narrative: General: Mildly ill, nontoxic appearing male sitting up in bed. Weight: 105.1 kg. BMI: 29.0. HEENT: Normocephalic, atraumatic. PERRL, EOMI. Sclerae anicteric. Tacky mucous membranes. Neck: Supple. Respiratory: Tachycardic with normal S1-S2. Cardiovascular: Regular rate and rhythm with S1-S2. No murmur, rub, or gallop. Gastrointestinal: Abdomen is slightly distended with hypoactive bowel sounds. He is tender to palpation in even light percussion throughout the upper abdomen periumbilical region. Demonstrates voluntary guarding with no rebound tenderness. Skin: Warm and dry. Good capillary refill. No rash or lesions on limited exam. Extremities: No cyanosis, clubbing, or edema. Radial and pedal pulses intact. Ne
[2022-06-10 15:50] LABS: Procalcitonin 6.1 ng/mL
[2022-06-10] MEDS: MORPHINE SULFATE (*CRX) 2 MG/ML INJ IV PUSH ×4 (16:07→22:54)
[2022-06-10 17:42] LABS: Basophils Absolute Auto 0.1 K/mm3 (0.0-0.1); Basophils Percent Auto 0.6 % (0.2-1.2); Eosinophils Absolute Auto 0.1 K/mm3 (0-0.3); Eosinophils Percent Auto 0.4 % (0-4.4); Hemoglobin 15.6 g/dL (14.0-18.0); Immature Granulocyte Absolute 0.07 K/mm3 (0.00-0.031); Immature Granulocyte Percent A 0.4 % (0-0.5); Immature Platelet Fraction Pct 9.4 % (0.9-11.2); Lymphocytes Absolute Auto 1.78 K/mm3 (0.9-3.2); Lymphocytes Percent Auto 10.5 % (18.3-44.2); Mean Corpuscular HGB Conc 34.7 g/dl (32-36); Mean Corpuscular Hemoglobin 31.5 pg (26-34); Mean Corpuscular Volume 90.9 fl (80-100); Mean Platelet Volume 10.5 fl (7.4-10.4); Monocytes Absolute Auto 1.4 K/mm3 (0.1-0.6); Neutrophils Absolute Auto 13.6 K/mm3 (1.3-6.7); Neutrophils Percent Auto 80.1 % (45.5-73.1); Platelet Count Result 113 k/mm3 (150-375); Red Blood Count 4.95 M/mm3 (4.6-6.20); Red Cell Distribution Width 15.9 % (11.5-14.5)
[2022-06-10 17:49] LABS: Anion Gap 14 mmol/L (8-16); Blood Urea Nitrogen 25 mg/dL (9-20); Calcium 6.8 mg/dL (8.4-10.2); Carbon Dioxide 27 mmol/L (22-30); Chloride 87 mmol/L (98-107); Estimated CRCL calculation 55 ml/min; Estimated Glomerular Filt Rate 38; Glucose 215 mg/dL (65-110); Potassium 4.1 mmol/L (3.4-5.0); Sodium 128 mmol/L (137-145)
[2022-06-10 18:01] LABS: Troponin I 0.018 ng/mL (0.000-0.034)
[2022-06-10] MEDS: ENOXAPARIN 40 MG/0.4 ML SYRINGE SUB-Q (18:21)
[2022-06-10] MEDS: LACTATED RINGERS 1,000 ML 999 ML IV CONT (18:31)
[2022-06-10] MEDS: LACTATED RINGERS 1,000 ML 150 ML IV CONT (19:54)
[2022-06-10] MEDS: CALCIUM CARBONATE (TUMS) 500 MG (200 MG ELEMENTAL) PO (19:55)
[2022-06-10 23:06] LABS: Glucose Point of Care 193 mg/dl (65-105)
[2022-06-10 23:31] LABS: Troponin I < 0.012 ng/mL (0.000-0.034)
[2022-06-11] VITALS (16 sets, daily range): BP systolic 124–142; BP diastolic 63–97; PULSE 114–127; RESP 17–28; TEMP 36.5–38.1; O2SAT 89–97
[2022-06-11] MEDS: MORPHINE SULFATE (*CRX) 2 MG/ML INJ IV PUSH ×3 (00:59→07:21)
[2022-06-11] MEDS: LACTATED RINGERS 1,000 ML 150 ML IV CONT (02:27)
[2022-06-11] MEDS: MORPHINE SULFATE (*CRX) 4 MG/ML INJ IV PUSH (03:04)
[2022-06-11 04:53] LABS: Basophils Absolute Auto 0.1 K/mm3 (0.0-0.1); Basophils Percent Auto 0.5 % (0.2-1.2); Eosinophils Percent Auto 0.2 % (0-4.4); Hematocrit 37.8 % (42.0-52.0); Hemoglobin 13.2 g/dL (14.0-18.0); Immature Granulocyte Absolute 0.06 K/mm3 (0.00-0.031); Immature Granulocyte Percent A 0.6 % (0-0.5); Immature Platelet Fraction Pct 9.3 % (0.9-11.2); Lymphocytes Absolute Auto 1.44 K/mm3 (0.9-3.2); Lymphocytes Percent Auto 13.6 % (18.3-44.2); Mean Corpuscular HGB Conc 34.9 g/dl (32-36); Mean Corpuscular Hemoglobin 31.9 pg (26-34); Mean Corpuscular Volume 91.3 fl (80-100); Mean Platelet Volume 10.2 fl (7.4-10.4); Monocytes Absolute Auto 0.7 K/mm3 (0.1-0.6); Monocytes Percent Auto 6.8 % (2.6-8.5); Neutrophils Absolute Auto 8.3 K/mm3 (1.3-6.7); Neutrophils Percent Auto 78.3 % (45.5-73.1); Platelet Count Result 84 k/mm3 (150-375); Red Blood Count 4.14 M/mm3 (4.6-6.20); Red Cell Distribution Width 15.8 % (11.5-14.5); White Blood Count 10.6 K/mm3 (4.5-10.0)
[2022-06-11 05:00] LABS: Glucose Point of Care 178 mg/dl (65-105)
[2022-06-11 05:22] LABS: Lactic Acid Reflex 1.6 mmol/L (0.7-2.0)
[2022-06-11 05:29] LABS: Alanine Aminotransferase 36 U/L (6-50); Alkaline Phosphatase 76 U/L (38-126); Anion Gap -1 mmol/L (8-16); Aspartate Amino Transferase 78 U/L (17-59); Bilirubin,Total 2.1 mg/dL (0.2-1.3); Blood Urea Nitrogen 21 mg/dL (9-20); Calcium 6.4 mg/dL (8.4-10.2); Carbon Dioxide 33 mmol/L (22-30); Chloride 87 mmol/L (98-107); Estimated CRCL calculation 95 ml/min; Estimated Glomerular Filt Rate > 60; Glucose 167 mg/dL (65-110); Magnesium 1.8 mg/dL (1.6-2.3); Phosphorus 2.2 mg/dL (2.5-4.5); Potassium 3.6 mmol/L (3.4-5.0); Sodium 119 mmol/L (137-145)
[2022-06-11 06:06] LABS: Anion Gap 8 mmol/L (8-16); Blood Urea Nitrogen 23 mg/dL (9-20); Calcium 6.7 mg/dL (8.4-10.2); Carbon Dioxide 33 mmol/L (22-30); Chloride 85 mmol/L (98-107); Estimated CRCL calculation 103 ml/min; Estimated Glomerular Filt Rate > 60; Glucose 164 mg/dL (65-110); Potassium 4.1 mmol/L (3.4-5.0); Sodium 126 mmol/L (137-145)
[2022-06-11] MEDS: SODIUM CHLORIDE 0.9% IV 1,000 ML 125 ML IV CONT (08:19)
[2022-06-11] MEDS: CALCIUM GLUC 2,000 MG/NS 100ML 2,000 MG/100 ML BAG 100 MG IVPB (08:19)
[2022-06-11] MEDS: hetaSTARCH 6%/NACL 500 ML 250 ML IV CONT (08:20)
[2022-06-11] MEDS: polyethylene glycoL 3350 17 GM POWD.PACK PO (08:20)
[2022-06-11] MEDS: ASPIRIN 325 MG ENTERIC TABLET PO (08:23)
[2022-06-11] MEDS: PANTOPRAZOLE SODIUM IV 40 MG VIAL IV PUSH ×2 (08:23→21:10)
--- NOTE | 2022-06-11 08:44 | WPDINTPN ---
Progress Note: A&P Assessment and Plan (1) Sepsis: Code(s): A41.9 - Sepsis, unspecified organism Status: Acute Assessment and Plan: Patient admitted with sepsis with likely source is abdomen, hypovolemia, lactic acidosis -right femoral line was inserted on 06/10,, received adequate IV fluids, patient was also placed on bicarb infusion which was then switched to LR overnight -lactic acid has normalized to 1.6 this morning (10.1 on admission) 06/10: Blood cultures UA and urine culture have been obtained and pending 06/10 CT abdomen pelvis: 1. ?Acute interstitial pancreatitis with prominent peripancreatic edema and nonloculated acute peripancreatic fluid collections.2. Prominent diffuse hepatic steatosis.3. Scattered discoid atelectasis in the bilateral lower lungs. No other acute cardiopulmonary disease -started on empirImipenem on 06/10 -urine output has been improving, creatinine has improved to 1.20 (2.8 on admission) -patient has not required any vasopressors (2) Acute pancreatitis: Code(s): K85.90 - Acute pancreatitis without necrosis or infection, unspecified Status: Acute Assessment and Plan: 06/10 CT scan abdomen pelvis showed acute interstitial pancreatitis, with peripancreatic edema and non loculated acute peripancreatic fluid. 06/10: Abdominal ultrasound shows sonographic findings consistent with pancreatitis, hepatic steatosis, small volume ascites, gallbladder is normal with no abnormal wall thickening, pericholecystic fluid or stones -lipase was 1929 on admission, will repeat this morning -check triglycerides (3) Acute kidney injury: Code(s): N17.9 - Acute kidney failure, unspecified Status: Acute Assessment and Plan: Likely secondary to sepsis, NSAIDs use and possible obstruction -CT abdomen and pelvis showed normal kidneys, -CK level was 207 -patient was adequately fluid-resuscitated, urine output has improved, creatinine is down to 1.2 ( from 2.8 on admission) -will give Hespan -calcium gluconate IV -switch IV fluids to normal saline (4) Elevated troponin: Code(s): R77.8 - Other specified abnormalities of plasma proteins Status: Acute Assessment and Plan: Elevated troponin likely secondary to sepsis as patient is otherwise 37 years old with no coronary artery disease or risk factors EKG is abnormal as patient has significant sinus tachycardia Will repeat EKG after fluid resuscitation Serial troponins are negative x3 with initial troponin elevated at 0.045 Echocardiogram has been ordered and pending -single elevation in troponin likely related to severe sepsis, ischemic demand Hold anticoagulation or aspirin at this time (5) Abdominal pain: Code(s): R10.9 - Unspecified abdominal pain Status: Acute Assessment and Plan: CT abdomen and pelvis as above, likely related to acute pancreatitis -continue pain medications with dilaudid, added stool softeners and MiraLax -06/11: Obstructive series shows nonobstructive bowel gas pattern, no free intraperitoneal gas (6) Metabolic acidosis: Code(s): E87.2 - Acidosis Status: Acute Assessment and Plan: Severe metabolic acidosis secondary to sepsis and ZOILA Status post IV bicarb push, bicarb infusion. Acidosis has resolved, IV fluids have been switched to normal saline (7) Shortness of breath: Code(s): R06.02 - Shortness of breath Status: Inactive Assessment and Plan: Has improved, likely related to severe acidosis Chest x-ray on admission showed mild atelectasis (8) Polysubstance abuse: Code(s): F19.10 - Other psychoactive substance abuse, uncomplicated Status: Acute Assessment and Plan: Patient denies any recent use of drugs or alcohol. He does admit to taking Advil for abdominal pain Urine drug screen was positive for benzodiazepines and cannabinoids. Salicylate levels were normal (9) Dehydration: Code(s): E86.0 - Dehydra
[2022-06-11] MEDS: SODIUM PHOSPHATE 20 MM in DEXTROSE 5% IN WATER 250 ML 50 MM IVPB (08:45)
--- NOTE | 2022-06-11 09:00 | ECHO_ITS ---
Patient Info Name: Jose Cruz Richmond Age: 37 years : 1985 Gender: Male Ht: 75 in Wt: 231 lbs BSA: 2.37 m2 HR: 114 bpm BP: 135 / 97 mmHg Exam Date: 06/11/2022 10:08 AM Exam Location: [facility] Patient Status: Inpatient Admit Date: 06/10/2022 Staff Ordering Physician: Stevan Soliman MD Family Dentist: Akbar Paris RDCS, RT Attending Provider: Hari Brink MD Exam Type: CA echo doppler color flow Study Info Indications I21.4 - Non-ST elevation (NSTEMI) myocardial infarction R65.21 - Severe sepsis with septic shock Complete two-dimensional, color flow and Doppler transthoracic echocardiogram is performed with contrast to opacify the left ventricle and to improve the deliniation of the left ventricle endocardial borders. Summary 1. Echo contrast was used. Borderline LV enlargement, mild LVH; moderate LV systolic dysfunction with variable LV contractility, ejection fraction approximately 35%. Diastolic dysfunction is present. Normal RV size and systolic function. Mild left atrial enlargement. Normal mitral valve structure, trivial MR. Normal aortic valve structure, no stenosis. Unable to assess RVSP due to inadequate TR jet. Significantly dilated IVC without respiratory collapse. Left Ventricle Left ventricular chamber dimension is mildly enlarged. There is mildly increased left ventricular wall thickness. The left ventricular diastolic function is abnormal. Right Ventricle Right ventricular chamber dimension is normal. Right ventricular systolic function is normal. Left Atria Left atrial chamber dimension is mildly enlarged. Right Atria Right atrial chamber dimension is normal. Aortic Valve The aortic valve is normal. There is no aortic valve stenosis. Pulmonic Valve The pulmonic valve is normal. Mitral Valve The mitral valve has normal leaflets. There is trace mitral valve regurgitation. Tricuspid Valve The tricuspid valve leaflets are normal. Pericardium/Pleural The pericardium appears normal. Inferior Vena Cava Dilated inferior vena cava with no collapse upon inspiration consistent with elevated right atrial pressure, 15 mmHg. Aorta The aortic root size at the sinus of Valsalva is normal. Left Ventricular Outflow Tract Name Value Normal LVOT 2D LVOT Diameter 2.1 cm LVOT Doppler LVOT Peak Gradient 5 mmHg LVOT Mean Gradient 3 mmHg LVOT VTI 17 cm LVOT VTI/AV VTI Ratio 0.9 LVOT Stroke Volume 59 ml LVOT CO 6.8 l/min LVOT CI 2.9 l/min/m2 Mitral Valve Name Value Normal MV Doppler MV Decel Webster 317 cm/s2 MV PHT 61 ms MV Area (PHT)
[2022-06-11] MEDS: HYDROmorphone HCL INJ (*CRX) 1 MG/ML SYR 0.5 MG IV PUSH ×5 (09:19→21:15)
[2022-06-11] MEDS: PERFLUTREN LIPID MICROSPHERES 1.5 ML VIAL DILUTED TO 10 ML TOTAL VOLUME IV PUSH (10:10)
--- NOTE | 2022-06-11 10:11 | IVDEFINITY ---
Prior to administration of IV Definity the patient was educated on the risks and benefits of the imaging enhancing agent including potential adverse side effects. The patient verbalized understanding. Allergies were verified. No exclusion criteria were identified and at least one of the following inclusion criteria were met: 1) physician request, 2) patient technically difficult to image (per the [place] [employer] guidelines of two or more segments not discernable within the apical view), or 3) questionable left ventricular function. ?
[2022-06-11 11:23] LABS: Lipase 760 U/L (23-300)
[2022-06-11 11:32] LABS: Glucose Point of Care 171 mg/dl (65-105)
[2022-06-11 11:52] LABS: Triglycerides 1295 mg/dL (<150)
--- NOTE | 2022-06-11 11:52 | PCFNICU ---
ICU Rounding Note: Pt current nutrition is NPO. Nutrition recommendation: advance as tolerated per MD orders. Last recorded weight is 114.2 kg, up from 105.1kg on admit. Bowel Motility:No BM reported. Labs Reviewed:Glu 164, BUN 23, Alb 3.0,Hgb 13.2,Na 126 Meds Noted:Senokot, Miralax, NS, Dilaudid. Skin: WNL Additional Notes: Patient is currently NPO. Nausea and Vomiting reported on admit. No weight loss reported. Agree with diet orders at this time. Following daily in ICU rounds.
[2022-06-11] MEDS: SENNA/DOCUSATE SODIUM TABLET 1 TAB PO ×2 (14:07→21:10)
[2022-06-11] MEDS: FENOFIBRATE 160 MG TABLET PO (14:33)
[2022-06-11] MEDS: INSULIN HUMAN REGULAR (*BKC) 100 UNITS in SODIUM CHLORIDE 0.9% IV 99 ML IV CONT (14:36)
[2022-06-11] MEDS: DEXTROSE 5%/0.9% SOD CHL 1,000 ML 125 ML IV CONT ×2 (14:37→22:45)
[2022-06-11 14:40] LABS: Glucose Point of Care 171 mg/dl (65-105)
--- NOTE | 2022-06-11 16:30 | PM.IMPN ---
Progress Note: A&P Assessment and Plan (1) Sepsis: Code(s): A41.9 - Sepsis, unspecified organism Status: Acute Assessment and Plan: Patient admitted with sepsis with likely source is abdomen, hypovolemia, lactic acidosis -right femoral line was inserted on 06/10,, received adequate IV fluids, patient was also placed on bicarb infusion which was then switched to LR overnight Elevated lactic acid on admission at 10 point Now normalized. Blood culture no growth to date CT abdomen with acute interstitial pancreatitis with prominent peripancreatic edema and non loculated acute peripancreatic fluid collections. Diffuse hepatic steatosis scattered discoid atelectasis in the bilateral lower lung. Empirically started on imipenem 06/10 (2) Acute pancreatitis: Code(s): K85.90 - Acute pancreatitis without necrosis or infection, unspecified Status: Acute Assessment and Plan: 06/10 CT scan abdomen pelvis showed acute interstitial pancreatitis, with peripancreatic edema and non loculated acute peripancreatic fluid. 06/10: Abdominal ultrasound shows sonographic findings consistent with pancreatitis, hepatic steatosis, small volume ascites, gallbladder is normal with no abnormal wall thickening, pericholecystic fluid or stones -lipase was 1929 on admission, improving level this time No gallstones present in current abdominal ultrasound. Prior ultrasound with evidence of debris/sludge in gallbladder. Past stone/sludge related pancreatitis Triglyceride however came back elevated at 1200 On IV insulin fenofibrate and niacin for hypertriglyceridemia (3) Acute kidney injury: Code(s): N17.9 - Acute kidney failure, unspecified Status: Acute Assessment and Plan: Creatinine on admission 2.8. Likely secondary to sepsis, NSAIDs use and possible obstruction CT abdomen and pelvis showed normal kidneys, CK level was 207 Patient was adequately fluid-resuscitated, urine output has improved, creatinine is down to 1.2 ( from 2.8 on admission) (4) Elevated troponin: Code(s): R77.8 - Other specified abnormalities of plasma proteins Status: Acute Assessment and Plan: Elevated troponin likely secondary to sepsis as patient is otherwise 37 years old with no coronary artery disease or risk factors EKG is abnormal as patient has significant sinus tachycardia Serial troponins are negative x3 with initial troponin elevated at 0.045 Echocardiogram pending Delete (5) Abdominal pain: Code(s): R10.9 - Unspecified abdominal pain Status: Acute Assessment and Plan: CT abdomen and pelvis as above, likely related to acute pancreatitis -continue pain medications with dilaudid, added stool softeners and MiraLax -06/11: Obstructive series shows nonobstructive bowel gas pattern, no free intraperitoneal gas (6) Metabolic acidosis: Code(s): E87.2 - Acidosis Status: Acute Assessment and Plan: Severe metabolic acidosis secondary to sepsis and ZOILA Status post IV bicarb push, bicarb infusion. Acidosis has resolved, IV fluids have been switched to normal saline (7) Shortness of breath: Code(s): R06.02 - Shortness of breath Status: Inactive Assessment and Plan: Has improved, likely related to severe acidosis Chest x-ray on admission showed mild atelectasis (8) Polysubstance abuse: Code(s): F19.10 - Other psychoactive substance abuse, uncomplicated Status: Acute Assessment and Plan: Patient denies any recent use of drugs or alcohol. He does admit to taking Advil for abdominal pain Urine drug screen was positive for benzodiazepines and cannabinoids. Salicylate levels were normal (9) Dehydration: Code(s): E86.0 - Dehydration Status: Acute Assessment and Plan: RESOLVED Plan DVT prophylaxis -hold Lovenox as patient is thrombocytopenia Stress ulcer prophylaxis -PPI IV Q12H Nutrition -NPO except ice chips Code Sta
[2022-06-11 16:36] LABS: Glucose Point of Care 189 mg/dl (65-105)
[2022-06-11 17:05] LABS: Glucose Point of Care 171 mg/dl (65-105)
[2022-06-11 18:12] LABS: Glucose Point of Care 167 mg/dl (65-105)
[2022-06-11] MEDS: CENTRAL LINE FLUSH 10 ML IV PUSH ×2 (18:38→21:11)
[2022-06-11 19:09] LABS: Glucose Point of Care 184 mg/dl (65-105)
[2022-06-11] MEDS: NIACIN SA 250 MG CAPSULE PO (21:10)
[2022-06-11 21:26] LABS: Glucose Point of Care 182 mg/dl (65-105)
[2022-06-11] MEDS: ACETAMINOPHEN 325 MG TABLET 650 MG PO (22:45)
[2022-06-11 22:49] LABS: Glucose Point of Care 183 mg/dl (65-105)
[2022-06-12] VITALS (21 sets, daily range): BP systolic 115–143; BP diastolic 71–113; PULSE 95–128; RESP 13–27; TEMP 36.4–37.2; O2SAT 92–98
[2022-06-12] MEDS: HYDROmorphone HCL INJ (*CRX) 1 MG/ML SYR 0.5 MG IV PUSH ×8 (00:09→22:14)
[2022-06-12 00:16] LABS: Triglycerides 1026 mg/dL (<150)
[2022-06-12 00:17] LABS: Glucose Point of Care 185 mg/dl (65-105)
[2022-06-12 01:40] LABS: Glucose Point of Care 175 mg/dl (65-105)
[2022-06-12 03:11] LABS: Glucose Point of Care 155 mg/dl (65-105)
[2022-06-12 05:01] LABS: Hematocrit 30.7 % (42.0-52.0); Hemoglobin 10.5 g/dL (14.0-18.0); Immature Platelet Fraction Pct 8.4 % (0.9-11.2); Mean Corpuscular HGB Conc 34.2 g/dl (32-36); Mean Corpuscular Hemoglobin 31.5 pg (26-34); Mean Corpuscular Volume 92.2 fl (80-100); Mean Platelet Volume 10.6 fl (7.4-10.4); Platelet Count Result 72 k/mm3 (150-375); Red Blood Count 3.33 M/mm3 (4.6-6.20); Red Cell Distribution Width 15.3 % (11.5-14.5); White Blood Count 6.8 K/mm3 (4.5-10.0)
[2022-06-12 05:19] LABS: Lactic Acid Reflex 1.1 mmol/L (0.7-2.0)
[2022-06-12 05:20] LABS: Alanine Aminotransferase 29 U/L (6-50); Albumin Level 2.8 g/dL (3.5-5.1); Alkaline Phosphatase 67 U/L (38-126); Anion Gap 7 mmol/L (8-16); Aspartate Amino Transferase 67 U/L (17-59); Bilirubin,Total 1.9 mg/dL (0.2-1.3); Blood Urea Nitrogen 13 mg/dL (9-20); Calcium 6.8 mg/dL (8.4-10.2); Carbon Dioxide 32 mmol/L (22-30); Chloride 88 mmol/L (98-107); Creatine Kinase 143 U/L (55-170); Estimated CRCL calculation 136 ml/min; Estimated Glomerular Filt Rate > 60; Glucose 154 mg/dL (65-110); Lipase 457 U/L (23-300); Magnesium 2.3 mg/dL (1.6-2.3); Phosphorus 1.7 mg/dL (2.5-4.5); Potassium 3.4 mmol/L (3.4-5.0); Sodium 127 mmol/L (137-145)
[2022-06-12 05:57] LABS: CRP 31.8 mg/dL (<1.0)
[2022-06-12] MEDS: DEXTROSE 5%/0.9% SOD CHL 1,000 ML 125 ML IV CONT (05:57)
[2022-06-12] MEDS: CENTRAL LINE FLUSH 10 ML IV PUSH ×2 (05:57→22:14)
[2022-06-12 06:04] LABS: Glucose Point of Care 170 mg/dl (65-105)
[2022-06-12 07:16] LABS: Band Neutrophils Percent 11 % (0-6); Eosinophils Absolute Manual 0.06 K/mm3 (0.02-0.5); Eosinophils Percent Manual 1 % (0-4); Lymphocytes Absolute Manual 0.81 K/mm3 (1.1-4.5); Monocytes Absolute Manual 0.54 K/mm3 (0.1-0.90); Monocytes Percent Manual 8 % (3-9); Neutrophils Absolute Manual 5.37 K/mm3 (1.3-6.7); Neutrophils Percent Manual 68 % (46-73); Platelet Estimate Decreased (Adequate); Total Cells Counted 100
[2022-06-12] MEDS: FENOFIBRATE 160 MG TABLET PO (08:07)
[2022-06-12] MEDS: ASPIRIN 325 MG ENTERIC TABLET PO (08:07)
[2022-06-12] MEDS: polyethylene glycoL 3350 17 GM POWD.PACK PO (08:08)
[2022-06-12] MEDS: PANTOPRAZOLE SODIUM IV 40 MG VIAL IV PUSH ×2 (08:08→20:49)
[2022-06-12] MEDS: SENNA/DOCUSATE SODIUM TABLET 1 TAB PO ×2 (08:08→20:49)
[2022-06-12 08:12] LABS: Glucose Point of Care 157 mg/dl (65-105)
[2022-06-12 08:32] LABS: Triglycerides 844 mg/dL (<150)
[2022-06-12] MEDS: LIDOCAINE HCL 1% PF INJ 5 ML VIAL INFILTRATE (08:45)
[2022-06-12] MEDS: POTASSIUM/PHOSPHORUS/SODIUM 1.5 GM PACKET 1 PACKET PO (09:15)
[2022-06-12 09:46] LABS: Glucose Point of Care 182 mg/dl (65-105)
[2022-06-12 10:12] LABS: Triglycerides 782 mg/dL (<150)
[2022-06-12 11:32] LABS: Glucose Point of Care 162 mg/dl (65-105)
--- NOTE | 2022-06-12 12:25 | PM.CNCAR ---
Assessment and Plan Assessment and plan (1) Cardiomyopathy: Code(s): I42.9 - Cardiomyopathy, unspecified Status: Acute Assessment and Plan: Patient appears to have a new cardiomyopathy, EF 35% with moderate left ventricular dysfunction. Likely due to alcoholism, can not rule out a late presentation for COVID cardiomyopathy or underlying CAD although less likely. Start carvedilol, gradually add in an JEFE-inhibitor/ARB and spironolactone. Although patient does not have any overt CHF, he was given fluid resuscitation and is cumulative positive 12,000 cc. He has a gallop rhythm and I am concerned that he may go into overt CHF so will reduce his IV fluids to 50 cc an hour, since he is now taking p.o. liquids. Check a chest x-ray today and BNP tomorrow (2) LBBB (left bundle branch block): Code(s): I44.7 - Left bundle-branch block, unspecified Status: Acute Assessment and Plan: New LBBB, perhaps a rate-related LBB re-evaluate prior to discharge (3) Elevated troponin: Code(s): R77.8 - Other specified abnormalities of plasma proteins Status: Acute Assessment and Plan: Mildly elevated troponin, and due to physiologic stress nonspecific myocardial injury, no ACS (4) Acute pancreatitis: Code(s): K85.90 - Acute pancreatitis without necrosis or infection, unspecified Status: Acute Assessment and Plan: Improving. (5) Sepsis: Code(s): A41.9 - Sepsis, unspecified organism Status: Acute Assessment and Plan: Improving (6) Alcoholism: Code(s): F10.20 - Alcohol dependence, uncomplicated Status: Acute Assessment and Plan: Pt states he will remain abstinent. History of Present Illness History of Present Illness Consult date/time: 06/12/22 12:25 Reason For Visit: Pancreatitis/Sepsis Narrative: Jose Cruz Richmond is a 37 y.o. WM whom we were asked to see by Dr. Julian for our advice and opinion regarding his cardiomyopathy, in consultation. He has had prior admissions for treatment of alcohol withdrawal; his last one was in April 2022 after major job stress caused him to go back to drinking. Patient reports no alcohol intake since that discharge The patient was readmitted June 10 with sepsis, pancreatitis, acute kidney injury, metabolic acidosis, lactic acidosis, and shortness of breath. He had mildly elevated troponins, 0.029, 0.045. Echocardiogram done for his elevated troponins showed moderate LV dysfunction with ejection fraction of 35%. EKg on admission showed a new LBBB. The patient states he was treated for COVID at [facility] in November 2021 any had some type of cardiac issue at that time, perhaps pericarditis. After he recovered he was able to exercise at the gym regularly with no particular problems with shortness of breath, chest pain and he has had no edema. No hypertension or family history of heart disease Review of Systems Constitutional: Constitutional: Denies fever(s) Eyes: Eyes: Reports no additional eye complaints ENT: Denies epistaxis Cardiovascular: Cardiovascular: Denies chest pain, Denies pedal edema, Reports lightheadedness and Denies dyspnea Comments: had lightheadedness or weakness prior to this admission Respiratory: Respiratory: Denies chest congestion and Denies dyspnea Gastrointestinal: Gastrointestinal: Reports abdominal pain and Denies hematochezia Comments: loss of hiccups as well Genitourinary: Genitourinary: Denies hematuria Musculoskeletal: Musculoskeletal: Reports no additional musculoskeletal complaints Integumentary/Breasts: Skin/Breast: Reports system reviewed and no additional complaints, except as docu Neurologic: Reports system reviewed and no additional complaints, except as documented, Denies behavioral changes and Denies confusion Psychiatric: Psychiatric: Denies behavioral changes and Denies confusion PMFSH Past Medical History
--- NOTE | 2022-06-12 12:44 | WPDINTPN ---
Progress Note: A&P Assessment and Plan (1) Hypertriglyceridemia: Code(s): E78.1 - Pure hyperglyceridemia Status: Acute Assessment and Plan: Severe hypertriglyceridemia, likely cause of the pancreatitis -triglyceride levels were 1295 -started patient on niacin, fenofibrate -also started him on insulin infusion -triglyceride levels are trending down, -continue insulin infusion until triglyceride levels are < 500 and then will stop the insulin infusion (2) Cardiomyopathy: Code(s): I42.9 - Cardiomyopathy, unspecified Status: Acute Assessment and Plan: Cardiomyopathy which could be related to alcohol 06/11/2022 Echocardiogram: Borderline LV enlargement, EF 35%, diastolic dysfunction is present, normal RV size and systolic function -cardiology has been consulted, patient may benefit from beta-lauren and JEFE-inhibitor (3) Sepsis: Code(s): A41.9 - Sepsis, unspecified organism Status: Acute Assessment and Plan: Patient admitted with sepsis with likely source is abdomen, hypovolemia, lactic acidosis -right femoral line was inserted on 06/10,, received adequate IV fluids, patient was also placed on bicarb infusion which was then switched to LR overnight -lactic acid has normalized to 1.6 this morning (10.1 on admission) 06/10: Blood cultures UA and urine culture are negative so far 06/10 CT abdomen pelvis: 1. ?Acute interstitial pancreatitis with prominent peripancreatic edema and nonloculated acute peripancreatic fluid collections.2. Prominent diffuse hepatic steatosis.3. Scattered discoid atelectasis in the bilateral lower lungs. No other acute cardiopulmonary disease -started on empiric imipenem on 06/10, continue for total of 5 days -urine output has been improving, creatinine has improved to 0.9 (2.8 on admission) -patient has not required any vasopressors (4) Acute pancreatitis: Code(s): K85.90 - Acute pancreatitis without necrosis or infection, unspecified Status: Acute Assessment and Plan: 06/10 CT scan abdomen pelvis showed acute interstitial pancreatitis, with peripancreatic edema and non loculated acute peripancreatic fluid. 06/10: Abdominal ultrasound shows sonographic findings consistent with pancreatitis, hepatic steatosis, small volume ascites, gallbladder is normal with no abnormal wall thickening, pericholecystic fluid or stones -lipase was 1929 on admission, levels are trending down -06/11 triglycerides 1295, levels are trending down (5) Acute kidney injury: Code(s): N17.9 - Acute kidney failure, unspecified Status: Acute Assessment and Plan: RESOLVED Likely secondary to sepsis, NSAIDs use and possible obstruction -CT abdomen and pelvis showed normal kidneys, -CK level was 207 -patient was adequately fluid-resuscitated, urine output has improved, creatinine is down to 0.9 ( from 2.8 on admission) -will give Hespan -calcium gluconate IV -switch IV fluids to normal saline (6) Elevated troponin: Code(s): R77.8 - Other specified abnormalities of plasma proteins Status: Acute Assessment and Plan: Elevated troponin likely secondary to sepsis as patient is otherwise 37 years old with no coronary artery disease or risk factors EKG is abnormal as patient has significant sinus tachycardia Will repeat EKG after fluid resuscitation Serial troponins are negative x3 with initial troponin elevated at 0.045 -single elevation in troponin likely related to severe sepsis, ischemic demand Hold anticoagulation or aspirin at this time (7) Abdominal pain: Code(s): R10.9 - Unspecified abdominal pain Status: Acute Assessment and Plan: CT abdomen and pelvis as above, likely related to acute pancreatitis -continue pain medications with dilaudid, continue stool softeners and MiraLax -06/11: Obstructive series shows nonobstructive bowel gas pattern, no free intraperitoneal gas (8) Metabolic acidosis: Code(s): E87.2
[2022-06-12 13:02] LABS: Glucose Point of Care 187 mg/dl (65-105)
[2022-06-12 14:15] LABS: Glucose Point of Care 195 mg/dl (65-105)
[2022-06-12] MEDS: DEXTROSE 5%/0.9% SOD CHL 1,000 ML 75 ML IV CONT (15:24)
[2022-06-12 15:31] LABS: Glucose Point of Care 184 mg/dl (65-105)
[2022-06-12 17:07] LABS: Glucose Point of Care 189 mg/dl (65-105)
[2022-06-12 18:17] LABS: Glucose Point of Care 170 mg/dl (65-105)
[2022-06-12] MEDS: carvediloL 3.125 MG TABLET PO (20:49)
[2022-06-12] MEDS: NIACIN SA 250 MG CAPSULE PO (20:49)
[2022-06-12 20:56] LABS: Glucose Point of Care 190 mg/dl (65-105)
[2022-06-12 21:27] LABS: Triglycerides 586 mg/dL (<150)
[2022-06-12 22:19] LABS: Glucose Point of Care 179 mg/dl (65-105)
[2022-06-13] VITALS (16 sets, daily range): BP systolic 117–145; BP diastolic 72–89; PULSE 94–112; RESP 12–23; TEMP 37.1–37.9; O2SAT 93–99
[2022-06-13 00:28] LABS: Glucose Point of Care 177 mg/dl (65-105)
[2022-06-13] MEDS: HYDROmorphone HCL INJ (*CRX) 1 MG/ML SYR 0.5 MG IV PUSH ×6 (01:42→20:27)
[2022-06-13 01:51] LABS: Glucose Point of Care 152 mg/dl (65-105)
[2022-06-13 04:40] LABS: Hemoglobin 9.4 g/dL (14.0-18.0); Immature Platelet Fraction Pct 7.6 % (0.9-11.2); Mean Corpuscular HGB Conc 33.6 g/dl (32-36); Mean Corpuscular Hemoglobin 31.6 pg (26-34); Mean Corpuscular Volume 94.3 fl (80-100); Mean Platelet Volume 10.4 fl (7.4-10.4); Platelet Count Result 110 k/mm3 (150-375); Red Blood Count 2.97 M/mm3 (4.6-6.20); Red Cell Distribution Width 15.9 % (11.5-14.5); White Blood Count 7.3 K/mm3 (4.5-10.0)
[2022-06-13 04:47] LABS: Lactic Acid Reflex 0.6 mmol/L (0.7-2.0)
[2022-06-13 04:48] LABS: Alanine Aminotransferase 49 U/L (6-50); Albumin Level 2.8 g/dL (3.5-5.1); Alkaline Phosphatase 91 U/L (38-126); Anion Gap 6 mmol/L (8-16); Aspartate Amino Transferase 133 U/L (17-59); Bilirubin,Total 1.8 mg/dL (0.2-1.3); Blood Urea Nitrogen 10 mg/dL (9-20); Calcium 7.5 mg/dL (8.4-10.2); Carbon Dioxide 31 mmol/L (22-30); Chloride 90 mmol/L (98-107); Estimated CRCL calculation 172 ml/min; Estimated Glomerular Filt Rate > 60; Glucose 144 mg/dL (65-110); Lipase 477 U/L (23-300); Magnesium 2.6 mg/dL (1.6-2.3); Phosphorus 1.7 mg/dL (2.5-4.5); Potassium 3.4 mmol/L (3.4-5.0); Sodium 127 mmol/L (137-145)
[2022-06-13 04:56] LABS: NT Pro B Type Natriuretic Pept 830 pg/mL (5-100)
[2022-06-13] MEDS: CENTRAL LINE FLUSH 10 ML IV PUSH ×4 (05:14→20:26)
[2022-06-13 05:18] LABS: Band Neutrophils Percent 16 % (0-6); Metamyelocytes Percent 2 %; Monocytes Absolute Manual 0.87 K/mm3 (0.1-0.90); Monocytes Percent Manual 12 % (3-9); Neutrophils Absolute Manual 4.67 K/mm3 (1.3-6.7); Neutrophils Percent Manual 48 % (46-73); Platelet Estimate Adequate (Adequate); Total Cells Counted 100
[2022-06-13 05:19] LABS: Poikilocytosis 1+ (NORMAL)
[2022-06-13 05:20] LABS: Hyperchromasia 1+ (NORMAL)
[2022-06-13 05:21] LABS: Hypochromasia 1+ (NORMAL); Stomatocytes 2+ (NORMAL)
[2022-06-13 06:27] LABS: Glucose Point of Care 170 mg/dl (65-105)
[2022-06-13 07:53] LABS: Glucose Point of Care 147 mg/dl (65-105)
[2022-06-13] MEDS: POTASSIUM PHOS/SODIUM PHOS 250 MG TABLET PO (08:27)
[2022-06-13] MEDS: ASPIRIN 325 MG ENTERIC TABLET PO (08:27)
[2022-06-13] MEDS: carvediloL 3.125 MG TABLET PO ×2 (08:27→20:26)
[2022-06-13] MEDS: SENNA/DOCUSATE SODIUM TABLET 1 TAB PO ×2 (08:28→20:26)
[2022-06-13] MEDS: PANTOPRAZOLE SODIUM IV 40 MG VIAL IV PUSH ×2 (08:28→20:27)
[2022-06-13] MEDS: FENOFIBRATE 160 MG TABLET PO (08:28)
[2022-06-13] MEDS: polyethylene glycoL 3350 17 GM POWD.PACK PO (08:28)
[2022-06-13 09:15] LABS: Triglycerides 455 mg/dL (<150)
[2022-06-13 09:50] LABS: Triglycerides 449 mg/dL (<150)
--- NOTE | 2022-06-13 11:20 | PM.PNCARD ---
Progress Note: A&P Assessment and Plan (1) Cardiomyopathy: Code(s): I42.9 - Cardiomyopathy, unspecified Status: Acute Assessment and Plan: Patient hasa new cardiomyopathy, EF 35% with moderate left ventricular dysfunction. Likely due to alcoholism, can not rule out a late presentation for COVID cardiomyopathy or underlying CAD although less likely. Although patient does not have any overt CHF, he was given fluid resuscitation and is cumulative positive 12,000 cc. He has a gallop rhythm and I am concerned that he may go into overt CHF so will reduce his IV fluids to 50 cc an hour, since he is now taking p.o. liquids. Chest x-ray clear, proBNP only 830, no edema. Does not appear to have any acute volume overload. He is tachycardic and has a gallop rhythm, perhaps due to his cardiomyopathy/acute CHF and other physiologic stressors. Started carvedilol. Since BP better and ZOILA resolved, will add low-dose Entresto and later spironolactone. Daily BMP (2) LBBB (left bundle branch block): Code(s): I44.7 - Left bundle-branch block, unspecified Status: Acute Assessment and Plan: New LBBB, perhaps a rate-related LBBB as pt is tachycardic (3) Elevated troponin: Code(s): R77.8 - Other specified abnormalities of plasma proteins Status: Acute Assessment and Plan: Mildly elevated troponin, and due to physiologic stress nonspecific myocardial injury, no ACS (4) Acute pancreatitis: Code(s): K85.90 - Acute pancreatitis without necrosis or infection, unspecified Status: Acute Assessment and Plan: Improving. (5) Sepsis: Code(s): A41.9 - Sepsis, unspecified organism Status: Acute Assessment and Plan: Improving (6) Alcoholism: Code(s): F10.20 - Alcohol dependence, uncomplicated Status: Acute Assessment and Plan: Pt states he will remain abstinent. Subjective Date/time seen: FU for new cardiomyopathy. Pt has had prior admissions for treatment of alcohol withdrawal; his last one was in April 2022 when a major job stress caused him to go back to drinking.? Patient reports no alcohol intake since that discharge The patient was readmitted June 10 with sepsis, pancreatitis, acute kidney injury, metabolic acidosis, lactic acidosis, and shortness of breath.? He had mildly elevated troponins, 0.029, 0.045.? Echocardiogram done for his elevated troponins showed moderate LV dysfunction with ejection fraction of 35%.? EKG on admission showed a new LBBB. The patient states he was treated for COVID at [facility] in November 2021 any had some type of cardiac issue at that time, perhaps pericarditis.? After he recovered he was able to exercise at the gym regularly with no particular problems with shortness of breath, chest pain and he has had no edema.? ?I can not find anything pertinent in [facility] or Care Everywhere other than an ER evaluation for Etoh intoxication in April Date of service: 06/13/22 11:20: Was up in a chair earlier but did not tolerate well, desaturated, had a lot of abdominal pain now is back in bed. Says he has been short of breath and a little nauseated. Chest x-ray just done, not yet read but looks clear to me. Review of Systems Review of Systems: No chest pain but has shortness of breath, nausea, abdominal pain, was lightheaded when up in chair. Exam Narrative: Somewhat somnolent young man, not answering questions very readily, frequent hiccups. Const: General: uncomfortable HENMT: Mouth: Yes moist mucous membranes Eyes: EOM: EOMs intact bilaterally Resp: Effort & Inspection: normal respiratory effort Auscultation: clear to auscultation bilaterally Other: Very frequent hiccups Cardio: Rate: regular rate and tachycardic Rhythm: regular rhythm Heart sounds: Gallop heart sound present and no murmurs GI: Inspection: distended Auscultation: abnormal bowel sounds (Diminished bowel sounds) Oth
--- NOTE | 2022-06-13 11:25 | PCFNICU ---
ICU Rounding Note: Pt current nutrition is Full liquids plans to advance as tolerated to heart healthy diet. Last recorded weight is 116.8 kg Bowel Motility:No BM reported. Labs Reviewed:Alb 2.8,Hct 28.0,Hgb 9.4,Mg 2.6, PO4 1.7,Glu 144, TG 449 Meds Noted:Senokot, Dilaudid, Miralax, Protonix Skin: WNL Additional Notes: Patient tolerating full liquid diet today. Plans to advance diet as tolerated to heart healthy. Diet supplements of Ensure compact BID have been ordered for additional 220 kcals and 9 gms protein. Agree with diet orders. Following daily in ICU rounds or assessing at LOS at 7 days.
--- NOTE | 2022-06-13 11:35 | WPDINTPN ---
Progress Note: A&P Assessment and Plan (1) Hypertriglyceridemia: Code(s): E78.1 - Pure hyperglyceridemia Status: Acute Assessment and Plan: Severe hypertriglyceridemia, likely cause of the pancreatitis -triglyceride levels were 1295 -started patient on niacin, fenofibrate -also started him on insulin infusion -triglyceride levels are trending down, -continue insulin infusion until triglyceride levels are < 500 and then will stop the insulin infusion -this morning triglycerides of 449, will discontinue insulin infusion D5 normal saline IV fluids -continue to monitor daily triglycerides (2) Cardiomyopathy: Code(s): I42.9 - Cardiomyopathy, unspecified Status: Acute Assessment and Plan: Cardiomyopathy which could be related to alcohol 06/11/2022 Echocardiogram: Borderline LV enlargement, EF 35%, diastolic dysfunction is present, normal RV size and systolic function -cardiology has been consulted, patient was started on carvedilol -patient will benefit from Aniceto inhibitor and diuretics -will diurese today as patient is in positive fluid balance (3) Sepsis: Code(s): A41.9 - Sepsis, unspecified organism Status: Acute Assessment and Plan: RESOLVED Patient admitted with sepsis with likely source is abdomen, hypovolemia, lactic acidosis -right femoral line was inserted on 06/10,, received adequate IV fluids, patient was also placed on bicarb infusion which was then switched to LR overnight -lactic acid has normalized to 0.6 this morning (10.1 on admission) 06/10: Blood cultures UA and urine culture are negative so far 06/10 CT abdomen pelvis: 1. ?Acute interstitial pancreatitis with prominent peripancreatic edema and nonloculated acute peripancreatic fluid collections.2. Prominent diffuse hepatic steatosis.3. Scattered discoid atelectasis in the bilateral lower lungs. No other acute cardiopulmonary disease -started on empiric imipenem on 06/10, continue for total of 5 days -urine output has been improving, creatinine has improved to 0.9 (2.8 on admission) -patient has not required any vasopressors (4) Acute pancreatitis: Code(s): K85.90 - Acute pancreatitis without necrosis or infection, unspecified Status: Acute Assessment and Plan: 06/10 CT scan abdomen pelvis showed acute interstitial pancreatitis, with peripancreatic edema and non loculated acute peripancreatic fluid. 06/10: Abdominal ultrasound shows sonographic findings consistent with pancreatitis, hepatic steatosis, small volume ascites, gallbladder is normal with no abnormal wall thickening, pericholecystic fluid or stones -likely related to hypertriglyceridemia, -lipase was 1929 on admission, levels are trending down (477 on 06/13/2022) (5) Acute kidney injury: Code(s): N17.9 - Acute kidney failure, unspecified Status: Acute Assessment and Plan: RESOLVED Likely secondary to sepsis, NSAIDs use and possible obstruction -CT abdomen and pelvis showed normal kidneys, -CK level was 207 -patient was adequately fluid-resuscitated, urine output has improved, creatinine is down to 0.9 ( from 2.8 on admission) -will give Hespan -calcium gluconate IV -switch IV fluids to normal saline (6) Elevated troponin: Code(s): R77.8 - Other specified abnormalities of plasma proteins Status: Acute Assessment and Plan: Elevated troponin likely secondary to sepsis as patient is otherwise 37 years old with no coronary artery disease or risk factors EKG is abnormal as patient has significant sinus tachycardia Will repeat EKG after fluid resuscitation Serial troponins are negative x3 with initial troponin elevated at 0.045 -single elevation in troponin likely related to severe sepsis, ischemic demand Hold anticoagulation or aspirin at this time (7) Abdominal pain: Code(s): R10.9 - Unspecified abdominal pain Status: Acute Assessment and Plan: CT abdomen and pelvis as above, likely
--- NOTE | 2022-06-13 11:39 | ECG_ITS ---
Measurements Intervals [place] Rate: 104 P: 26 [place]: 196 QRS: 11 QRSD: 153 T: 49 QT: 381 QTc: 502 Interpretive Statements SINUS TACHYCARDIA LEFT BUNDLE BRANCH BLOCK BASELINE ARTIFACT- II, III, AVF, V6 ABNORMAL ECG COMPARED TO ECG 06/10/2022 14:51:56 NO SIGNIFICANT CHANGES Electronically Signed On 06-13-2022 11:59:58 CDT by Kermit Jones D.O.
--- NOTE | 2022-06-13 11:42 | PC.NURSE ---
Returned patient to bed after c/o severe abd pain. IV pain medications given for pain. Chest Xray and stat EKG ordered.
--- NOTE | 2022-06-13 12:01 | PC.NURSE ---
Dr. Julian and Dr. Bee aware of EKG results
[2022-06-13] MEDS: FUROSEMIDE INJ 40 MG/4 ML VIAL IV PUSH (12:26)
[2022-06-13] MEDS: ENOXAPARIN 40 MG/0.4 ML SYRINGE SUB-Q (18:41)
[2022-06-13] MEDS: SACUBITRIL/VALSARTAN 24-26 MG TABLET 1 TAB PO (20:26)
[2022-06-13] MEDS: NIACIN SA 250 MG CAPSULE PO (20:26)
[2022-06-13] MEDS: MORPHINE SULFATE (*CRX) 2 MG/ML INJ IV PUSH (22:16)
[2022-06-13] MEDS: METOCLOPRAMIDE HCL INJ 10 MG/2 ML VIAL IV PUSH (22:18)
[2022-06-14] VITALS (16 sets, daily range): BP systolic 120–143; BP diastolic 70–95; PULSE 89–102; RESP 12–22; TEMP 36.9–37.6; O2SAT 92–100; BMI 29.7
[2022-06-14] MEDS: MORPHINE SULFATE (*CRX) 2 MG/ML INJ IV PUSH ×7 (01:20→21:12)
[2022-06-14] MEDS: METOCLOPRAMIDE HCL INJ 10 MG/2 ML VIAL IV PUSH ×3 (04:55→21:10)
[2022-06-14] MEDS: CENTRAL LINE FLUSH 10 ML IV PUSH ×4 (04:59→21:09)
[2022-06-14 05:00] LABS: Basophils Absolute Auto 0.1 K/mm3 (0.0-0.1); Basophils Percent Auto 0.9 % (0.2-1.2); Eosinophils Absolute Auto 0.1 K/mm3 (0-0.3); Eosinophils Percent Auto 0.7 % (0-4.4); Hematocrit 28.9 % (42.0-52.0); Hemoglobin 9.8 g/dL (14.0-18.0); Immature Granulocyte Absolute 0.47 K/mm3 (0.00-0.031); Lymphocytes Absolute Auto 0.96 K/mm3 (0.9-3.2); Lymphocytes Percent Auto 10.3 % (18.3-44.2); Mean Corpuscular HGB Conc 33.9 g/dl (32-36); Mean Corpuscular Hemoglobin 31.7 pg (26-34); Mean Corpuscular Volume 93.5 fl (80-100); Mean Platelet Volume 10.3 fl (7.4-10.4); Monocytes Absolute Auto 1.8 K/mm3 (0.1-0.6); Monocytes Percent Auto 19.2 % (2.6-8.5); Neutrophils Percent Auto 63.9 % (45.5-73.1); Nucleated Red Blood Cells Absolute Auto 0.1 K/mm3 (0.0-0.012); Nucleated Red Blood Cells Perc 0.5 % (0.0-0.2); Platelet Count Result 148 k/mm3 (150-375); Red Blood Count 3.09 M/mm3 (4.6-6.20); Red Cell Distribution Width 15.9 % (11.5-14.5); White Blood Count 9.3 K/mm3 (4.5-10.0)
[2022-06-14 05:09] LABS: Lactic Acid Reflex 0.8 mmol/L (0.7-2.0)
[2022-06-14 05:11] LABS: Alanine Aminotransferase 92 U/L (6-50); Albumin Level 2.9 g/dL (3.5-5.1); Alkaline Phosphatase 125 U/L (38-126); Anion Gap 7 mmol/L (8-16); Aspartate Amino Transferase 214 U/L (17-59); Bilirubin,Total 1.7 mg/dL (0.2-1.3); Blood Urea Nitrogen 9 mg/dL (9-20); Calcium 8.1 mg/dL (8.4-10.2); Carbon Dioxide 32 mmol/L (22-30); Chloride 90 mmol/L (98-107); Estimated CRCL calculation 172 ml/min; Estimated Glomerular Filt Rate > 60; Glucose 176 mg/dL (65-110); Lipase 590 U/L (23-300); Magnesium 2.1 mg/dL (1.6-2.3); Phosphorus 2.1 mg/dL (2.5-4.5); Potassium 2.9 mmol/L (3.4-5.0); Sodium 129 mmol/L (137-145); Triglycerides 366 mg/dL (<150)
[2022-06-14 05:35] LABS: Platelet Estimate Adequate (Adequate)
[2022-06-14 05:36] LABS: Stomatocytes 1+ (NORMAL)
[2022-06-14] MEDS: KCL 40 MEQ/WATER 100 ML 100 ML 25 ML IVPB (07:00)
[2022-06-14] MEDS: LACTATED RINGERS 1,000 ML 75 ML IV CONT ×2 (08:28→21:08)
[2022-06-14] MEDS: ASPIRIN 325 MG ENTERIC TABLET PO (08:29)
[2022-06-14] MEDS: carvediloL 3.125 MG TABLET PO (08:30)
[2022-06-14] MEDS: SENNA/DOCUSATE SODIUM TABLET 1 TAB PO (08:30)
[2022-06-14] MEDS: FENOFIBRATE 160 MG TABLET PO (08:30)
[2022-06-14] MEDS: SACUBITRIL/VALSARTAN 24-26 MG TABLET 1 TAB PO ×2 (08:30→21:08)
[2022-06-14] MEDS: PANTOPRAZOLE SODIUM IV 40 MG VIAL IV PUSH ×2 (08:30→21:08)
--- NOTE | 2022-06-14 08:38 | PM.IMPN ---
Progress Note: A&P Assessment and Plan (1) Sepsis: Code(s): A41.9 - Sepsis, unspecified organism Status: Acute Assessment and Plan: Patient presents with abdominal pain and found to have hypokalemia lactic acidosis. CT of the abdomen showed acute interstitial pancreatitis is most likely etiology is sepsis symptoms. Lactic acid normalized with IV fluids. Was started on empiric antibiotics. Patient has not required any vasopressors. Repeat CT scan now showing necrotic pancreatitis. Low-grade fevers noted. He remains on Primaxin. he remains on IV fluids. Currently NPO with exception of ice chips. (2) Acute pancreatitis: Code(s): K85.90 - Acute pancreatitis without necrosis or infection, unspecified Status: Acute Assessment and Plan: As above. CT of the abdomen showed acute interstitial pancreatitis with prominent peripancreatic edema and fluid collection. Lipase was 1929 and trended down to 457. Lipase trending up slightly to [address] showing acute necrotic pancreatitis interval worsening. Triglyceride level was 1295 and was treated appropriately. Repeat triglyceride level improved to 366. He remains on niacin and fenofibrate. Etiology of his pancreatitis most likely alcohol and/or hypertriglyceridemia. Currently NPO now. Continue IV fluids. Agree with changing to Gemfib since fenofibrate can cause pancreatitis. (3) Hypertriglyceridemia: Code(s): E78.1 - Pure hyperglyceridemia Status: Acute Assessment and Plan: As above. (4) CHF (congestive heart failure): Code(s): I50.9 - Heart failure, unspecified Status: Acute Assessment and Plan: Imaging showing pulmonary edema with small left pleural effusion. BNP was 830. Echocardiogram showing EF of 35% with diastolic dysfunction and minimal valvular disease. Patient most likely has acute systolic and diastolic CHF. troponin was elevated to 0.045 on admission but from there trended downward. EKG on admission showed sinus tachycardia possibly atrial flutter with a left bundle branch block. Was felt they had a rate related left bundle branch block. Left bundle branch block however has persisted despite improvement of his heart rate. Bundle branch block is new when compared to a prior EKG. Patient tolerated Lasix well with good urine output. Clinically he appears euvolemic despite his positive fluid balance. Suspect majority the fluid has 3rd spaced into his abdomen. He is followed by Cardiology. He has been started on Coreg and Entresto. Continue to follow-up (5) Cardiomyopathy: Code(s): I42.9 - Cardiomyopathy, unspecified Status: Acute Assessment and Plan: as above (6) LBBB (left bundle branch block): Code(s): I44.7 - Left bundle-branch block, unspecified Status: Acute Assessment and Plan: as above (7) Acute kidney injury: Code(s): N17.9 - Acute kidney failure, unspecified Status: Acute Assessment and Plan: Creatinine was 2.8 on admission. Likely secondary to dehydration, sirs, NSAID use. CT abdomen and pelvis showed normal kidneys. CK level was 207. Patient was adequately fluid-resuscitated. Creatinine has normalized. Continue to follow. (8) Elevated troponin: Code(s): R77.8 - Other specified abnormalities of plasma proteins Status: Acute Assessment and Plan: As above (9) Polysubstance abuse: Code(s): F19.10 - Other psychoactive substance abuse, uncomplicated Status: Acute Assessment and Plan: patient has a history of polysubstance abuse. Urine drug screen was positive for benzodiazepines and cannabis . He has been positive for amphetamines in the past. Hepatitis panel was negative in 2019. LFTs noted to be elevated probably related to pancreatitis. Will check hepatitis panel and HIV. (10) Thrombocytopenia: Code(s): D69.6 - Thrombocytop
--- NOTE | 2022-06-14 11:25 | WPDINTPN ---
Progress Note: A&P Assessment and Plan (1) Acute pancreatitis: Code(s): K85.90 - Acute pancreatitis without necrosis or infection, unspecified Status: Acute Assessment and Plan: 06/10 CT scan abdomen pelvis showed acute interstitial pancreatitis, with peripancreatic edema and non loculated acute peripancreatic fluid. 06/10:? Abdominal ultrasound shows sonographic findings consistent with pancreatitis, hepatic steatosis, small volume ascites, gallbladder is normal with no abnormal wall thickening, pericholecystic fluid or stones -likely related to hypertriglyceridemia, -lipase was 1929 on admission, levels are trending down (477 on 06/13/2022) (2) Hypertriglyceridemia: Code(s): E78.1 - Pure hyperglyceridemia Status: Acute Assessment and Plan: Severe hypertriglyceridemia, likely cause of the pancreatitis -initial triglyceride levels were 1295 -continue niacin, gemfibrozil - insulin infusion was discontinued once the triglyceride levels are < 500 -this morning triglycerides of 366, will discontinue insulin infusion D5 normal saline IV fluids -continue to monitor (3) Cardiomyopathy: Code(s): I42.9 - Cardiomyopathy, unspecified Status: Acute Assessment and Plan: Cardiomyopathy which could be related to alcohol 06/11/2022 Echocardiogram:? Borderline LV enlargement, EF 35%, diastolic dysfunction is present, normal RV size and systolic function -cardiology has been consulted, continue carvedilol and Entresto per Cardiology -06/13: Patient diuresed well (4) Sepsis: Code(s): A41.9 - Sepsis, unspecified organism Status: Acute Assessment and Plan: RESOLVED Patient admitted with sepsis with likely source is abdomen, hypovolemia, lactic acidosis -06/10: right femoral line was inserted. received adequate IV fluids, patient was also placed on bicarb infusion which was then switched to LR overnight -lactic acid has normalized to 0.6 this morning (10.1 on admission) 06/10: Blood cultures UA and urine culture are negative so far 06/10 CT abdomen pelvis:? 1.??Acute interstitial pancreatitis with prominent peripancreatic edema and nonloculated acute peripancreatic fluid collections.2. Prominent diffuse hepatic steatosis.3. Scattered discoid atelectasis in the bilateral lower lungs. No other acute cardiopulmonary disease -started on empiric imipenem on 06/10, continue for total of 5 days -urine output has been improving, creatinine has improved to 0.9 (2.8 on admission) -patient has not required any vasopressors 06/14: Patient with increasing abdominal pain, CT scan of the abdomen and pelvis 1. Acute necrotic pancreatitis with interval worsening of findings. 2. Mild pulmonary edema and small left pleural effusion. 3. Gallbladder distention, which may be secondary to fasting or less likely acute cholecystitis. 4. Diffuse hepatic steatosis. Discussed with biliary team at [facility] who accepted the patient, once patient has a bed available transfer to [facility] (5) Acute kidney injury: Code(s): N17.9 - Acute kidney failure, unspecified Status: Acute Assessment and Plan: RESOLVED Likely secondary to sepsis, NSAIDs use and possible obstruction -CT abdomen and pelvis showed normal kidneys, -CK level was 207 -patient was adequately fluid-resuscitated, urine output has improved, creatinine is down to 0.7 ( from 2.8 on admission) -continue LR at 75 mL/hour patient NPO (6) Elevated troponin: Code(s): R77.8 - Other specified abnormalities of plasma proteins Status: Acute Assessment and Plan: Elevated troponin likely secondary to sepsis as patient is otherwise 37 years old with no coronary artery disease or risk factors EKG is abnormal as patient has significant sinus tachycardia Will repeat EKG after fluid resuscitation Serial troponins are negative x3 with initial troponin elevated at 0.045 -single elevation in troponin likely
--- NOTE | 2022-06-14 12:11 | PM.PNCARD ---
Progress Note: A&P Assessment and Plan (1) LBBB (left bundle branch block): Code(s): I44.7 - Left bundle-branch block, unspecified Status: Acute (2) Cardiomyopathy: Code(s): I42.9 - Cardiomyopathy, unspecified Status: Acute Plan 37-year-old man with: Significant cardiomyopathy likely alcoholic in etiology. He is not in overt decompensated heart failure at this time guideline directed medical therapy has been initiated. Most significant immediate problem is severe necrotizing pancreatitis. Plans are in place to transfer him to [facility] to the hepatobiliary Team as he has high potential for acute destabilization. Martínez Prather MD [facility] Subjective Date/time seen: date of service:06/14/22 12:11 Interval history: Follow-up visit in this 37-year-old man with: Newly diagnosed dilated cardiomyopathy almost certainly alcoholic in etiology. Patient started on medical therapy with Entresto and carvedilol. Most serious problem at this time is acute necrotizing pancreatitis. Patient does have waxing and waning epigastric/ mid abdominal pain. Somewhat better following large bowel movement earlier this morning. No shortness of breath or chest pain Exam Narrative: Somewhat somnolent young man, not answering questions very readily, frequent hiccups. Const: General: cooperative, comfortable, confusion and uncomfortable; No healthy appearing Orientation/consciousness: oriented to person, patient oriented x3 and confusion HENMT: Mouth: Yes moist mucous membranes Eyes: EOM: EOMs intact bilaterally Neck: Neck: supple and no JVD Thyroid: thyroid normal Carotids: no bruits Resp: Effort & Inspection: normal respiratory effort Auscultation: clear to auscultation bilaterally Other: Very frequent hiccups Cardio: Rate: regular rate and tachycardic Rhythm: regular rhythm Heart sounds: Gallop heart sound present and no murmurs Other: pedal pulses are intact GI: Inspection: normal to inspection and distended Auscultation: abnormal bowel sounds (Diminished bowel sounds) Other: Mildly distended apnea Skin: General skin exam: normal color and no rashes or lesions noted Neuro: General: oriented to person, patient oriented x3 and confusion Speech: No normal speech (Slowed speech) Other: rambling and might be a bit confused Extrem: General: no edema Right lower extremity: no edema Left lower extremity: no edema Psych: Appearance: grossly normal Mental Status: mental status grossly normal Speech and movement: Slowed speech present (Psych) Attitude: cooperative Other: withdrawn affect, somewhat lethargic (just given pain meds) Objective Data Vital Signs Vital Signs: Vital Signs - 24 hr 06/13/22 14:00 06/13/22 14:00 06/13/22 16:00 Temperature Pulse Rate 94 94 98 Respiratory Rate 16 Blood Pressure 117/72 Pulse Oximetry 97 Oxygen Delivery Oxygen Flow Rate 06/13/22 16:00 06/13/22 16:00 06/13/22 18:00 Temperature 37.1 C Pulse Rate 97 105 H Respiratory Rate 14 21 H Blood Pressure 132/81 137/75 Pulse Oximetry 99 96 96 Oxygen Delivery Nasal Cannula Oxygen Flow Rate 3 06/13/22 18:00 06/13/22 20:26 06/13/22 20:00 Temperature Pulse Rate 105 H 105 H 99 Respiratory Rate Blood Pressure Pulse Oximetry Oxygen Delivery Oxygen Flow Rate 06/13/22 20:00 06/13/22 20:00 06/13/22 22:20 Temperature 37.9 C H Pulse Rate 103 H 103 H 105 H Respiratory Rate 23 H 23 H Blood Pressure 132/76 Pulse Oximetry 96 96 Oxygen Delivery Nasal Cannula Oxygen Flow Rate 3 06/13/22 22:20 06/14/22 00:00 06/14/22 00:55 Temperature 37.2 C Pulse Rate 105 H 98 99 Respiratory Rate 17 16 Blood Pressure 145/89 H 120/70 Pulse Oximetry 98 94 Oxygen Delivery Oxygen Flow Rate 06/14/22 00:55 06/14/22 02:00 06/14/22 02:00 Temperature Pulse Rate 97 95 95 Respiratory Rate 16 21 H Blood Pressure
[2022-06-14 14:16] LABS: Potassium 3.3 mmol/L (3.4-5.0)
[2022-06-14 14:36] LABS: HIV 1/2 Ab P24 Ag Result Negative (Negative)
--- NOTE | 2022-06-14 14:36 | WPDGICN ---
Assessment and Plan Assessment and plan (1) Acute pancreatitis: Code(s): K85.90 - Acute pancreatitis without necrosis or infection, unspecified Status: Acute Assessment and Plan: Patient with acute alcoholic pancreatitis. It appears though he may have been quite dehydrated with volume depletion on admission had an ileus. This appears to be resolving. Clinically he is passing flatus and stool at this time. Tolerating liquid diet. CT scan however reveals evidence for necrotizing pancreatitis this time. Continue to monitor closely. No obvious signs for infection. Supportive care for now. NG tube does not appear to be necessary however diet and calorie intake is strongly encouraged. Would gradually advance diet starting with liquid diet tomorrow and slowly advancing to low-fat diet. Fun able to tolerated diet in TPN will be necessary. We will continue to monitor closely including electrolytes CBC and lipase. Pancreatitis appears to be on the use of alcohol abuse. Does alcohol avoidance and rehab strongly encouraged. (2) Alcohol use disorder: Status: Acute Assessment and Plan: Alcoholism appears to account for patient's current alcoholic pancreatitis. Plan to avoid alcohol if at all possible in the future. Patient encouraged to seek alcohol rehab if necessary a support group may be beneficial. (3) Alcoholism: Code(s): F10.20 - Alcohol dependence, uncomplicated Status: Acute GI Consult Note Consult date/time: 06/14/22 14:36 Reason for consult: Acute pancreatitis. HPI: Jose Cruz Richmond is a 37 year old male I am asked to see for acute pancreatitis. Patient gives a history of heavy alcohol abuse. He states he has minimize this over the last several weeks. Patient has never had pancreatitis before. Last week about Friday he began to have upper abdominal pain. This intensified on Friday and he became quite weak unable to walk and ambulate was taken to the hospital. Patient admitted to [facility]. CT scan initially showed interstitial pancreatitis. Patient placed in the intensive care unit. He states for several days he had no bowel movements in actually was unable to urinate for several days suggesting dehydration. Patient began to improve clinically and yesterday was allowed diet however pain intensified and this was stopped once again follow-up CT scan revealed the patient now has some component of necrotizing pancreatitis. Patient states that today he began to pass stool and gas flatus. Patient is unaware of any fever. His family history is noncontributory. He has never had gallstones in the past. I am asked to see in because of ongoing pancreatitis. Patient currently on only clear liquids in water. Review of Systems Review of Systems: Review of systems noncontributory. [facility] Past Medical History Medical History Alcohol withdrawal seizure (09/2012) Alcoholism Anxiety Attention deficit hyperactivity disorder (ADHD) Depression Duodenal ulcer (05/2012) Surgical History Surgical History History of colonoscopy (05/2012) History of esophagogastroduodenoscopy (05/2012) Family History Family History Father Hypertension Mother Breast cancer Social History Social History (Updated 06/12/22 @ 22:17 by Marianna Johnson PA-C) Social History: Surrogate medical decision maker: Jose Cruz and Wandy Richmond, parents. Code status: Full code. Smoking status: Never smoker Alcohol intake: unknown Drinks per week: 35 Alcohol use details: 2 pints vodka daily. 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 Spiritual care concerns: No Meds Home Medications and Allergies Home Medications Medication Instructions Recorded Confirmed
[2022-06-14 14:50] LABS: Hepatitis B Surface Antigen Negative (Negative)
[2022-06-14 14:56] LABS: HAV RESULT Negative (Negative); Hepatitis B Core IgM Result Negative (Negative)
[2022-06-14 15:08] LABS: Hepatitis C Virus Antibody Negative (Negative)
[2022-06-14] MEDS: ONDANSETRON INJ 4 MG/2 ML VIAL IV PUSH (15:48)
[2022-06-14] MEDS: ENOXAPARIN 40 MG/0.4 ML SYRINGE SUB-Q (17:57)
[2022-06-14] MEDS: carvediloL 6.25 MG TABLET PO (21:08)
[2022-06-14] MEDS: NIACIN SA 250 MG CAPSULE PO (21:08)
[2022-06-15] VITALS (14 sets, daily range): BP systolic 118–142; BP diastolic 72–94; PULSE 82–95; RESP 18–23; TEMP 36.4–37.6; O2SAT 92–99
[2022-06-15] MEDS: MORPHINE SULFATE (*CRX) 2 MG/ML INJ IV PUSH ×6 (00:35→23:29)
--- NOTE | 2022-06-15 04:51 | PC.NURSE ---
[facility] transfer line called for update with patient. Made aware pain, vitals, and current oxygenation needs. No bed at this time.
[2022-06-15] MEDS: CENTRAL LINE FLUSH 10 ML IV PUSH ×3 (06:27→20:17)
[2022-06-15 06:54] LABS: Basophils Absolute Auto 0.1 K/mm3 (0.0-0.1); Basophils Percent Auto 0.9 % (0.2-1.2); Eosinophils Absolute Auto 0.1 K/mm3 (0-0.3); Eosinophils Percent Auto 0.9 % (0-4.4); Hematocrit 28.3 % (42.0-52.0); Hemoglobin 9.4 g/dL (14.0-18.0); Immature Granulocyte Absolute 0.57 K/mm3 (0.00-0.031); Immature Granulocyte Percent A 5.4 % (0-0.5); Lymphocytes Absolute Auto 1.21 K/mm3 (0.9-3.2); Lymphocytes Percent Auto 11.5 % (18.3-44.2); Mean Corpuscular HGB Conc 33.2 g/dl (32-36); Mean Corpuscular Hemoglobin 31.2 pg (26-34); Mean Platelet Volume 10.4 fl (7.4-10.4); Monocytes Absolute Auto 1.5 K/mm3 (0.1-0.6); Monocytes Percent Auto 14.7 % (2.6-8.5); Neutrophils Percent Auto 66.6 % (45.5-73.1); Nucleated Red Blood Cells Perc 0.3 % (0.0-0.2); Platelet Count Result 207 k/mm3 (150-375); Red Blood Count 3.01 M/mm3 (4.6-6.20); Red Cell Distribution Width 15.6 % (11.5-14.5); White Blood Count 10.5 K/mm3 (4.5-10.0)
[2022-06-15 07:07] LABS: Alanine Aminotransferase 54 U/L (6-50); Albumin Level 2.7 g/dL (3.5-5.1); Alkaline Phosphatase 96 U/L (38-126); Anion Gap 14 mmol/L (8-16); Aspartate Amino Transferase 68 U/L (17-59); Bilirubin,Total 1.1 mg/dL (0.2-1.3); Blood Urea Nitrogen 9 mg/dL (9-20); Calcium 7.7 mg/dL (8.4-10.2); Carbon Dioxide 30 mmol/L (22-30); Chloride 89 mmol/L (98-107); Estimated CRCL calculation 171 ml/min; Estimated Glomerular Filt Rate > 60; Glucose 136 mg/dL (65-110); Lactic Acid Reflex 0.6 mmol/L (0.7-2.0); Lipase 525 U/L (23-300); Magnesium 1.9 mg/dL (1.6-2.3); Phosphorus 3.2 mg/dL (2.5-4.5); Potassium 3.3 mmol/L (3.4-5.0); Sodium 133 mmol/L (137-145); Triglycerides 322 mg/dL (<150)
[2022-06-15] MEDS: KCL 40 MEQ/WATER 100 ML 100 ML 25 ML IVPB (08:39)
[2022-06-15] MEDS: SENNA/DOCUSATE SODIUM TABLET 1 TAB PO ×2 (08:40→20:13)
[2022-06-15] MEDS: SACUBITRIL/VALSARTAN 24-26 MG TABLET 1 TAB PO ×2 (08:41→20:13)
[2022-06-15] MEDS: ASPIRIN 325 MG ENTERIC TABLET PO (08:41)
[2022-06-15] MEDS: PANTOPRAZOLE SODIUM IV 40 MG VIAL IV PUSH ×2 (08:41→20:14)
[2022-06-15] MEDS: carvediloL 6.25 MG TABLET PO ×2 (08:42→20:14)
[2022-06-15] MEDS: METOCLOPRAMIDE HCL INJ 10 MG/2 ML VIAL IV PUSH ×3 (08:42→23:40)
--- NOTE | 2022-06-15 09:18 | PM.PNCARD ---
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 Has been started on Entresto and carvedilol. Is hemodynamically stable. We will not advance either agent today. 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 Patient started on medical therapy with Entresto and carvedilol. Most serious problem at this time is acute necrotizing pancreatitis. Patient does have waxing and waning epigastric/ mid abdominal pain. Somewhat better following large bowel movement earlier this morning. No shortness of breath or chest pain 06/15/2022: Patient resting comfortably in bed sleeping when I entered the room upon awakening offers no cardiovascular complaints. Abdominal pain is better than yesterday. Exam Narrative: Somewhat somnolent young man, not answering questions very readily, frequent hiccups. Const: General: cooperative, comfortable, confusion and uncomfortable; No healthy appearing Orientation/consciousness: oriented to person, patient oriented x3 and confusion HENMT: Mouth: Yes moist mucous membranes Eyes: EOM: EOMs intact bilaterally Neck: Neck: supple and no JVD Thyroid: thyroid normal Carotids: no bruits Resp: Effort & Inspection: normal respiratory effort Auscultation: clear to auscultation bilaterally Other: Very frequent hiccups Cardio: Rate: regular rate and tachycardic Rhythm: regular rhythm Heart sounds: Gallop heart sound present and no murmurs Other: pedal pulses are intact GI: Inspection: normal to inspection and distended Auscultation: abnormal bowel sounds (Diminished bowel sounds) Other: Mildly distended apnea Skin: General skin exam: normal color and no rashes or lesions noted Neuro: General: oriented to person, patient oriented x3 and confusion Speech: No normal speech (Slowed speech) Other: rambling and might be a bit confused Extrem: General: no edema Right lower extremity: no edema Left lower extremity: no edema Psych: Appearance: grossly normal Mental Status: mental status grossly normal Speech and movement: Slowed speech present (Psych) Attitude: cooperative Other: withdrawn affect, somewhat lethargic (just given pain meds) Objective Data Vital Signs Vital Signs: Vital Signs - 24 hr 06/14/22 10:00 06/14/22 10:00 06/14/22 12:00 Temperature Pulse Rate 102 H 102 H 102 H Respiratory Rate 16 Blood Pressure 143/95 H Pulse Oximetry 95 Oxygen Delivery Oxygen Flow Rate 06/14/22 12:00 06/14/22 12:00 06/14/22 14:00 Temperature 36.9 C Pulse Rate 95 95 89 Respiratory Rate 13 13 Blood Pressure 135/85 Pulse Oximetry 93 94 Oxygen Delivery Nasal Cannula Oxygen Flow Rate 3 06/14/22 14:00 06/14/22 16:00 06/14/22 16:00 Temperature Pulse Rate 89 92 92 Respiratory Rate 19 13 Blood Pressure 131/83 Pulse Oximetry 94 100 Oxygen Delivery Nasal Cannula Oxygen Flow Rate 3 06/14/22 16:00 06/14/22 18:00 06/14/22 18:00 Temperature 37.6 C Pulse Rate 92 97 97 Respiratory Rate 13 12 Blood Pressure 143/93 H 141/79 H Pulse Oximetry 100 100 Oxygen Delivery Oxygen Flow Rate 06/14/22 21:08 06/14/22 20:00 06/14/22 20:00 Temperature Pulse Rate 99 97 97 Respiratory Rate 22 H Blood Pressure Pulse Oximetry 93 Oxygen Delivery Nasal Cannula Oxygen Flow Rate 3 06/14/22
--- NOTE | 2022-06-15 09:41 | PM.IMPN ---
Progress Note: A&P Assessment and Plan (1) Sepsis: Code(s): A41.9 - Sepsis, unspecified organism Status: Acute Assessment and Plan: Patient presents with abdominal pain and found to have hypokalemia lactic acidosis. CT of the abdomen showed acute interstitial pancreatitis which is most likely etiology if his sepsis/SIRS symptoms. Lactic acid normalized with IV fluids. Was started on empiric antibiotics. Patient has not required any vasopressors. Repeat CT Abd now showing necrotic pancreatitis. Low-grade fevers noted. He remains on Primaxin. He remains on IV fluids. (2) Acute pancreatitis: Code(s): K85.90 - Acute pancreatitis without necrosis or infection, unspecified Status: Acute Assessment and Plan: As above. CT of the abdomen/Pelvis showed acute interstitial pancreatitis with prominent peripancreatic edema and fluid collection. Lipase was 1929 and trended down to 457. Repeat CT showing acute necrotic pancreatitis with interval worsening. Triglyceride level was 1295 and was treated appropriately. Repeat triglyceride level improved to 322. He remains on niacin. Fenofibrate started but can contribute to pancreatitis so changed to Gemfibrizole. Etiology of his pancreatitis most likely alcohol and/or hypertriglyceridemia. Lipase trended up to 590 but better today. GI consulted and diet recommended. Clear liquids started. Continue IV fluids. (3) Hypertriglyceridemia: Code(s): E78.1 - Pure hyperglyceridemia Status: Acute Assessment and Plan: As above. (4) CHF (congestive heart failure): Code(s): I50.9 - Heart failure, unspecified Status: Acute Assessment and Plan: Imaging showing pulmonary edema with small left pleural effusion. BNP was 830. Echo showing EF of 35% with diastolic dysfunction and minimal valvular disease. Patient most likely has acute systolic and diastolic CHF. troponin was elevated to 0.045 on admission but from there trended downward felt related to above. EKG on admission showed sinus tachycardia possibly atrial flutter with a left bundle branch block. Was felt they had a rate related left bundle branch block. Left bundle branch block however has persisted despite improvement of his heart rate. Bundle branch block is new when compared to a prior EKG. Patient tolerated intermittent Lasix well with good urine output. Clinically he appears euvolemic despite his positive fluid balance. Suspect majority the fluid has 3rd spaced into his abdomen. He is followed by Cardiology. Continue Coreg and Entresto. Continue to follow-up (5) Cardiomyopathy: Code(s): I42.9 - Cardiomyopathy, unspecified Status: Acute Assessment and Plan: as above (6) LBBB (left bundle branch block): Code(s): I44.7 - Left bundle-branch block, unspecified Status: Acute Assessment and Plan: as above (7) Acute kidney injury: Code(s): N17.9 - Acute kidney failure, unspecified Status: Acute Assessment and Plan: Creatinine was 2.8 on admission. Likely secondary to dehydration, SIRS, NSAID use. CT abdomen and pelvis showed normal kidneys. TCK level was 207. Patient was adequately fluid-resuscitated. Creatinine has normalized. Continue to follow. (8) Elevated troponin: Code(s): R77.8 - Other specified abnormalities of plasma proteins Status: Acute Assessment and Plan: As above (9) Polysubstance abuse: Code(s): F19.10 - Other psychoactive substance abuse, uncomplicated Status: Acute Assessment and Plan: Patient has a history of polysubstance abuse. Urine drug screen was positive for benzodiazepines and cannabis . He has been positive for amphetamines in the past. LFTs noted to be elevated probably related to pancreatitis. Hepatitis panel and HIV were negative. LFTs improving. Follow (10) Thrombocytopenia: Code(s): D69.6 - Thr
--- NOTE | 2022-06-15 10:55 | WPDGIPROGNO ---
Progress Note: A&P Assessment and Plan (1) Acute pancreatitis: Code(s): K85.90 - Acute pancreatitis without necrosis or infection, unspecified Status: Acute Assessment and Plan: Patient with acute pancreatitis. Most recent CT scan imaging suggest necrotizing component to the pancreatitis. Patient improving clinically. Plan to slowly advance diet to full liquids today advance to low-fat diet tomorrow if tolerated. Patient's ileus appears to have been improved presently and subsequent improved abdominal discomfort. Continue supportive care and IV hydration till this is accomplished. (2) Alcoholism: Code(s): F10.20 - Alcohol dependence, uncomplicated Status: Acute Assessment and Plan: Patient with significant alcohol abuse. This appears be etiology of pancreatitis. Abstinence from alcohol will be important long-term. Subjective Date/time seen: 06/15/22 10:55 Patient alert this morning. Appears more comfortable. Continues to be passing bowel movements. Tolerated liquid diet without much difficulty fever noted. Review of Systems Review of Systems: Review of systems noncontributory. Exam Narrative: Physical exam reveals patient be comfortable at bed rest. HEENT exam reveals no icterus. Lungs are clear. Heart without murmur. Abdomen bowel sounds present soft mild upper abdominal discomfort but no significant tenderness. No masses encountered. Objective Data Vital Signs Vital Signs: Vital Signs - 24 hr 06/14/22 12:00 06/14/22 12:00 06/14/22 12:00 Temperature 98.4 F Pulse Rate 102 H 95 95 Respiratory Rate 13 13 Blood Pressure 135/85 Pulse Oximetry 93 94 Oxygen Delivery Nasal Cannula Oxygen Flow Rate 3 06/14/22 14:00 06/14/22 14:00 06/14/22 16:00 Temperature Pulse Rate 89 89 92 Respiratory Rate 19 13 Blood Pressure 131/83 Pulse Oximetry 94 100 Oxygen Delivery Nasal Cannula Oxygen Flow Rate 3 06/14/22 16:00 06/14/22 16:00 06/14/22 18:00 Temperature 99.6 F Pulse Rate 92 92 97 Respiratory Rate 13 Blood Pressure 143/93 H Pulse Oximetry 100 Oxygen Delivery Oxygen Flow Rate 06/14/22 18:00 06/14/22 21:08 06/14/22 20:00 Temperature Pulse Rate 97 99 97 Respiratory Rate 12 22 H Blood Pressure 141/79 H Pulse Oximetry 100 93 Oxygen Delivery Nasal Cannula Oxygen Flow Rate 3 06/14/22 20:00 06/14/22 20:00 06/14/22 21:58 Temperature 99.1 F Pulse Rate 97 97 99 Respiratory Rate 22 H 22 H Blood Pressure 142/88 H 142/88 H Pulse Oximetry 93 92 Oxygen Delivery Oxygen Flow Rate 06/15/22 00:00 06/15/22 00:00 06/15/22 00:00 Temperature 98.8 F Pulse Rate 95 95 95 Respiratory Rate 22 H 23 H Blood Pressure 137/94 H Pulse Oximetry 92 92 Oxygen Delivery Nasal Cannula Oxygen Flow Rate 2 06/15/22 01:46 06/15/22 04:00 06/15/22 04:00 Temperature Pulse Rate 93 91 91 Respiratory Rate 22 H 18 Blood Pressure 137/94 H Pulse Oximetry 93 93 Oxygen Delivery Nasal Cannula Oxygen Flow Rate 2 06/15/22 04:00 06/15/22 06:00 06/15/22 08:42 Temperature 99 F Pulse Rate 91 88 82 Respiratory Rate 21 H 22 H Blood Pressure 130/77 118/76 Pulse Oximetry 92 95 Oxygen Delivery Oxygen Flow Rate 06/15/22 08:00 06/15/22 08:00 06/15/22 08:00 Temperature 97.5 F L Pulse Rate 91 91 Respiratory Rate 22 H Blood Pressure 131/75 Pulse Oximetry 94 95 Oxygen Delivery Nasal Cannula Oxygen Flow Rate 2 06/15/22 10:00 06/15/22 10:00 Temperature Pulse Rate 94 94 Respiratory Rate 19 Blood Pressure 121/72 Pulse Oximetry 93 Oxygen Delivery Oxygen Flow Rate Intake/Output Intake/Output: Intake & Output 06/12/22 06/13/22 06/14/22 06/15/22 23:59 23:59 23:59 23:59 Intake Total 3560 3720 5050 460 Output Total 3250 6800 8475 2500 Balance 310 -3080 -3425 -2040 Meds/Results Medications: Active Medications Generic Name Dose Route Start Last Adm
--- NOTE | 2022-06-15 11:03 | PCFNICU ---
ICU Rounding Note: Pt current nutrition is clear liquids. Nutrition recommendation: Advance diet as tolerated Last recorded weight is 107.8 kg - stable at this time. Bowel Motility: +BM 06/14 Labs Reviewed: hgb:9.4, HCT:28.3, alb:2.7, NA:133, K:3.3, Cr:0.6 Meds Noted:Senokot, Dilaudid, Miralax, Protonix Skin:WNL Additional Notes: Pt restarted on a clear liquid diet this morning. To advance as tolerated. Pt has been accepted to [facility], awaiting a bed. Will move down from ICU status. Monitor diet order, intake, wt, labs. Follow up in 3 days.
--- NOTE | 2022-06-15 11:38 | WPDINTPN ---
Progress Note: A&P Assessment and Plan (1) Acute pancreatitis: Code(s): K85.90 - Acute pancreatitis without necrosis or infection, unspecified Status: Acute Assessment and Plan: 06/10 CT scan abdomen pelvis showed acute interstitial pancreatitis, with peripancreatic edema and non loculated acute peripancreatic fluid. 06/10:? Abdominal ultrasound shows sonographic findings consistent with pancreatitis, hepatic steatosis, small volume ascites, gallbladder is normal with no abnormal wall thickening, pericholecystic fluid or stones -likely related to hypertriglyceridemia, -lipase was 1929 on admission, levels are trending down (525 on 06/15/2022) -patient has been accepted to [facility] by the medical team, also discussed with biliary team and they will consult once he arrives at [facility]. -continue imipenem (06/10/2022) (2) Hypertriglyceridemia: Code(s): E78.1 - Pure hyperglyceridemia Status: Acute Assessment and Plan: Severe hypertriglyceridemia, likely cause of the pancreatitis -initial triglyceride levels were 1295 -continue niacin, gemfibrozil - insulin infusion was discontinued once the triglyceride levels are < 500 -this morning triglycerides of 322, -continue to monitor (3) Cardiomyopathy: Code(s): I42.9 - Cardiomyopathy, unspecified Status: Acute Assessment and Plan: Cardiomyopathy which could be related to alcohol 06/11/2022 Echocardiogram:? Borderline LV enlargement, EF 35%, diastolic dysfunction is present, normal RV size and systolic function -cardiology has been consulted, continue carvedilol and Entresto per Cardiology -06/13: Patient diuresed well (4) Sepsis: Code(s): A41.9 - Sepsis, unspecified organism Status: Acute Assessment and Plan: RESOLVED Patient admitted with sepsis with likely source is abdomen, hypovolemia, lactic acidosis -06/10: right femoral line was inserted. received adequate IV fluids, patient was also placed on bicarb infusion which was then switched to LR overnight -lactic acid has normalized to 0.6 this morning (10.1 on admission) 06/10: Blood cultures UA and urine culture are negative so far 06/10 CT abdomen pelvis:? 1.??Acute interstitial pancreatitis with prominent peripancreatic edema and nonloculated acute peripancreatic fluid collections.2. Prominent diffuse hepatic steatosis.3. Scattered discoid atelectasis in the bilateral lower lungs. No other acute cardiopulmonary disease -started on empiric imipenem on 06/10, continue for total of 5 days -urine output has been improving, creatinine has improved to 0.9 (2.8 on admission) -patient has not required any vasopressors 06/14: Patient with increasing abdominal pain, CT scan of the abdomen and pelvis 1. Acute necrotic pancreatitis with interval worsening of findings. 2. Mild pulmonary edema and small left pleural effusion. 3. Gallbladder distention, which may be secondary to fasting or less likely acute cholecystitis. 4. Diffuse hepatic steatosis. Discussed with biliary team at [facility] who accepted the patient, once patient has a bed available transfer to [facility] (5) Acute kidney injury: Code(s): N17.9 - Acute kidney failure, unspecified Status: Acute Assessment and Plan: RESOLVED Likely secondary to sepsis, NSAIDs use and possible obstruction -CT abdomen and pelvis showed normal kidneys, -CK level was 207 -patient was adequately fluid-resuscitated, urine output has improved, creatinine is down to 0.7 ( from 2.8 on admission) -continue LR at 75 mL/hour patient NPO (6) Elevated troponin: Code(s): R77.8 - Other specified abnormalities of plasma proteins Status: Acute Assessment and Plan: Elevated troponin likely secondary to sepsis as patient is otherwise 37 years old with no coronary artery disease or risk factors EKG is abnormal as patient has significant sinus
[2022-06-15] MEDS: ENOXAPARIN 40 MG/0.4 ML SYRINGE SUB-Q (18:05)
[2022-06-15] MEDS: NIACIN SA 250 MG CAPSULE PO (20:13)
[2022-06-16] VITALS (12 sets, daily range): BP systolic 123–143; BP diastolic 67–83; PULSE 79–96; RESP 16–18; TEMP 35.9–36.6; O2SAT 95–100
[2022-06-16] MEDS: CENTRAL LINE FLUSH 10 ML IV PUSH ×3 (06:02→20:57)
[2022-06-16 06:20] LABS: Alanine Aminotransferase 48 U/L (6-50); Albumin Level 2.7 g/dL (3.5-5.1); Alkaline Phosphatase 96 U/L (38-126); Anion Gap 3 mmol/L (8-16); Aspartate Amino Transferase 78 U/L (17-59); Blood Urea Nitrogen 7 mg/dL (9-20); Calcium 8.1 mg/dL (8.4-10.2); Carbon Dioxide 31 mmol/L (22-30); Chloride 93 mmol/L (98-107); Estimated CRCL calculation 171 ml/min; Estimated Glomerular Filt Rate > 60; Glucose 204 mg/dL (65-110); Lipase 887 U/L (23-300); Magnesium 1.7 mg/dL (1.6-2.3); Phosphorus 2.7 mg/dL (2.5-4.5); Potassium 3.3 mmol/L (3.4-5.0); Sodium 127 mmol/L (137-145); Triglycerides 250 mg/dL (<150)
--- NOTE | 2022-06-16 07:34 | WPDGIPROGNO ---
Progress Note: A&P Assessment and Plan (1) Acute pancreatitis: Code(s): K85.90 - Acute pancreatitis without necrosis or infection, unspecified Status: Acute Assessment and Plan: Patient with acute pancreatitis most recent imaging suggesting necrotizing pancreatitis. Patient currently afebrile. No signs of infection. Clinically improving slowly. His lipase remains elevated however. Today's lipase slightly increased at 887. Liver transaminases have gradually decreased. Patient's pain has abated. Plan to allow liquid diet as tolerated. Advance to low-fat diet slowly. Continued supportive care for now. (2) Alcohol use disorder: Status: Acute Assessment and Plan: Pancreatitis on the basis of alcoholism. Alcohol avoidance and rehabilitation strong encouraged. (3) Anemia: Qualifiers: Anemia type: other cause Other causes of anemia: other cause, not classified Qualified Code(s): D64.89 - Other specified anemias Code(s): D64.9 - Anemia, unspecified Status: Acute Assessment and Plan: Patient with anemia. Is been present since admission. Likely multifactorial. Supportive care for now. No indication for significant bleeding. Subjective Date/time seen: 06/16/22 07:35 Patient alert more comfortable this morning. States abdominal bloating his decreased. Tolerating liquid diet. Passing stool. He is not getting out of bed much but has been out of bed. Feels somewhat weak. Review of Systems Review of Systems: Review of systems noncontributory. Exam Narrative: Physical exam reveals patient be alert afebrile he is anicteric. HEENT exam reveals no icterus. Lungs are clear. Heart without murmur. Abdomen bowel sounds present soft no localized tenderness. No masses noted. Objective Data Vital Signs Vital Signs: Vital Signs - 24 hr 06/15/22 08:42 06/15/22 08:00 06/15/22 08:00 Temperature 97.5 F L Pulse Rate 82 91 91 Respiratory Rate 22 H Blood Pressure 131/75 Pulse Oximetry 94 Oxygen Delivery Oxygen Flow Rate 06/15/22 08:00 06/15/22 10:00 06/15/22 10:00 Temperature Pulse Rate 94 94 Respiratory Rate 19 Blood Pressure 121/72 Pulse Oximetry 95 93 Oxygen Delivery Nasal Cannula Oxygen Flow Rate 2 06/15/22 14:00 06/15/22 16:00 06/15/22 20:14 Temperature 99.6 F Pulse Rate 88 91 89 Respiratory Rate 18 Blood Pressure 121/75 Pulse Oximetry 95 Oxygen Delivery Oxygen Flow Rate 06/15/22 20:36 06/15/22 20:55 06/15/22 22:00 Temperature 98.5 F Pulse Rate 85 Respiratory Rate 18 Blood Pressure 142/78 H Pulse Oximetry 95 94 99 Oxygen Delivery Nasal Cannula Nasal Cannula Oxygen Flow Rate 3 2 06/15/22 20:00 06/15/22 20:00 06/16/22 00:00 Temperature Pulse Rate 90 86 Respiratory Rate Blood Pressure Pulse Oximetry 99 Oxygen Delivery Nasal Cannula Oxygen Flow Rate 3 06/16/22 04:00 Temperature Pulse Rate 84 Respiratory Rate Blood Pressure Pulse Oximetry Oxygen Delivery Oxygen Flow Rate Intake/Output Intake/Output: Intake & Output 06/13/22 06/14/22 06/15/22 06/16/22 23:59 23:59 23:59 23:59 Intake Total 3720 5050 2160 100 Output Total 6800 8475 4900 [facility] -2022 -4353 -8890 100 Meds/Results Medications: Active Medications Generic Name Dose Route Start Last Admin Trade Name Freq PRN Reason Stop Dose Admin Aspirin 325 mg 06/10/22 15:05 06/15/22 08:41 Aspirin 325 Mg Enteric Tablet PO 325 mg QAM ERYN Administration Calcium Carbonate 200 mg 06/10/22 18:14 06/10/22 19:55 Calcium Carbonate (Tums) 500 Mg (200 Mg Elemental) PO 200 mg Q6H PRN Administration Indigestion Carvedilol 6.25 mg 06/14/22 21:00 06/15/22 20:14 Carvedilol 6.25 Mg Tablet PO 6.25 mg Q12HR ERYN Administration Dextrose 12.5 gm 06/11/22 14:06 Dextrose 50% 25 Gm/50 Ml Syringe IV PUSH PRN PRN Hypoglycemia Protocol
[2022-06-16] MEDS: ASPIRIN 325 MG ENTERIC TABLET PO (08:23)
[2022-06-16] MEDS: carvediloL 6.25 MG TABLET PO ×2 (08:23→20:56)
[2022-06-16] MEDS: SENNA/DOCUSATE SODIUM TABLET 1 TAB PO ×2 (08:24→20:56)
[2022-06-16] MEDS: polyethylene glycoL 3350 17 GM POWD.PACK PO (08:24)
[2022-06-16] MEDS: SACUBITRIL/VALSARTAN 24-26 MG TABLET 1 TAB PO ×2 (08:24→20:56)
[2022-06-16] MEDS: PANTOPRAZOLE SODIUM IV 40 MG VIAL IV PUSH (08:24)
[2022-06-16 09:54] LABS: Hematocrit 29.1 % (42.0-52.0); Hemoglobin 9.8 g/dL (14.0-18.0); Mean Corpuscular HGB Conc 33.7 g/dl (32-36); Mean Corpuscular Hemoglobin 31.9 pg (26-34); Mean Corpuscular Volume 94.8 fl (80-100); Mean Platelet Volume 10.3 fl (7.4-10.4); Platelet Count Result 260 k/mm3 (150-375); Red Blood Count 3.07 M/mm3 (4.6-6.20); Red Cell Distribution Width 15.4 % (11.5-14.5); White Blood Count 13.2 K/mm3 (4.5-10.0)
[2022-06-16] MEDS: POTASSIUM CHLORIDE 20 MEQ TABLET 40 MEQ PO (11:09)
[2022-06-16 11:35] LABS: Band Neutrophils Percent 18 % (0-6); Basophils Absolute Manual 0.13 K/mm3 (0.0-0.1); Basophils Percent Manual 1 % (0-1); Eosinophils Absolute Manual 0.13 K/mm3 (0.02-0.5); Eosinophils Percent Manual 1 % (0-4); Lymphocytes Absolute Manual 0.52 K/mm3 (1.1-4.5); Metamyelocytes Percent 2 %; Monocytes Absolute Manual 0.26 K/mm3 (0.1-0.90); Monocytes Percent Manual 2 % (3-9); Myelocytes Percent 1 %; Neutrophils Absolute Manual 11.74 K/mm3 (1.3-6.7); Neutrophils Percent Manual 71 % (46-73); Total Cells Counted 100
[2022-06-16 11:36] LABS: Platelet Estimate Adequate (Adequate)
[2022-06-16] MEDS: MORPHINE SULFATE (*CRX) 2 MG/ML INJ IV PUSH ×4 (12:29→23:05)
--- NOTE | 2022-06-16 13:10 | PM.PNCARD ---
Progress Note: A&P Assessment and Plan (1) CHF (congestive heart failure): Code(s): I50.9 - Heart failure, unspecified Status: Acute (2) Alcohol use disorder: Status: Acute Plan 37-year-old man with alcohol abuse and alcoholic cardiomyopathy. Basic medical therapy has been started and should be continued. I am not going to uptitrate anything at this time. Initially the primary service had planned on transferring him to [facility] to the hepatology service because of his pancreatitis. I am not sure if that is still in the plans are not. Will follow him with you while he is in the hospital here and if he does get transferred or get discharge from [place] we will arrange for ongoing follow-up of his cardiomyopathy in our office. Martínez Prather MD [facility] Subjective Date/time seen: Date of service: 06/16/22 13:10 Interval history: Follow-up visit in this 37-year-old man with: Apparent alcoholic cardiomyopathy. Patient has been started on medical therapy with Entresto and carvedilol and seems to be doing well. Apparent alcoholic pancreatitis patient appears to have evidence of necrotizing pancreatitis on imaging studies. He is improving day by day much less abdominal pain he is resting relatively comfortable in bed watching a movie on his laptop Exam Const: General: comfortable and no acute distress HENMT: Mouth: Yes moist mucous membranes Eyes: Sclera: sclerae normal Neck: Neck: supple and no JVD Resp: Effort & Inspection: normal respiratory effort Auscultation: clear to auscultation bilaterally Cardio: Rate: regular rate Rhythm: regular rhythm Other: No gallop no murmur GI: Auscultation: normal bowel sounds Skin: General skin exam: normal color Neuro: Other: Alert and oriented Extrem: Other: No edema Objective Data Vital Signs Vital Signs: Vital Signs - 24 hr 06/15/22 14:00 06/15/22 16:00 06/15/22 20:14 Temperature 37.6 C Pulse Rate 88 91 89 Respiratory Rate 18 Blood Pressure 121/75 Pulse Oximetry 95 Oxygen Delivery Oxygen Flow Rate 06/15/22 20:36 06/15/22 20:55 06/15/22 22:00 Temperature 36.9 C Pulse Rate 85 Respiratory Rate 18 Blood Pressure 142/78 H Pulse Oximetry 95 94 99 Oxygen Delivery Nasal Cannula Nasal Cannula Oxygen Flow Rate 3 2 06/15/22 20:00 06/15/22 20:00 06/16/22 00:00 Temperature Pulse Rate 90 86 Respiratory Rate Blood Pressure Pulse Oximetry 99 Oxygen Delivery Nasal Cannula Oxygen Flow Rate 3 06/16/22 04:00 06/16/22 06:00 06/16/22 08:23 Temperature 36.6 C Pulse Rate 84 89 90 Respiratory Rate 16 Blood Pressure 143/67 H Pulse Oximetry 99 Oxygen Delivery Oxygen Flow Rate Intake/Output Intake/Output: Intake & Output 06/13/22 06/14/22 06/15/22 06/16/22 23:59 23:59 23:59 23:59 Intake Total 3720 5050 2160 1758 Output Total 6800 7492 7845 3772 [facility] -6240 -3425 -2740 -642 Meds/Results Medications: Active Medications Generic Name Dose Route Start Last Admin Trade Name Freq PRN Reason Stop Dose Admin Aspirin 325 mg 06/10/22 15:05 06/16/22 08:23 Aspirin 325 Mg Enteric Tablet PO 325 mg QAM ERYN Administration Calcium Carbonate 200 mg 06/10/22 18:14 06/10/22 19:55 Calcium Carbonate (Tums) 500 Mg (200 Mg Elemental) PO 200 mg Q6H PRN Administration Indigestion Carvedilol 6.25 mg 06/14/22 21:00 06/16/22 08:23 Carvedilol 6.25 Mg Tablet PO 6.25 mg Q12HR ERYN Administration Dextrose 12.5 gm 06/11/22 14:06 Dextrose 50% 25 Gm/50 Ml Syringe IV PUSH PRN PRN Hypoglycemia Protocol Enoxaparin Sodium 40 mg 06/10/22 18:00 06/15/22 18:05 Enoxaparin 40 Mg/0.4 Ml Syringe SUB-Q 40 mg Q24H ERYN Administration Gemfibrozil 300 mg 06/14/22 16:30 06/16/22 05:54 Gemfibrozil 300 Mg Tablet PO 300 mg BIDAC ERYN Administration Glucagon 1 mg 06/11/22 14:06 Glucagon For I
[2022-06-16] MEDS: ENOXAPARIN 40 MG/0.4 ML SYRINGE SUB-Q (17:21)
--- NOTE | 2022-06-16 17:34 | PM.IMPN ---
Progress Note: A&P Assessment and Plan (1) Sepsis: Code(s): A41.9 - Sepsis, unspecified organism Status: Acute Assessment and Plan: Patient presents with abdominal pain and found to have lactic acidosis. CT of the abdomen showed acute interstitial pancreatitis which is most likely etiology if his sepsis/SIRS symptoms. Lactic acid normalized with IV fluids. Was started on empiric antibiotics. Patient has not required any vasopressors. Repeat CT Abd now showing necrotic pancreatitis. Low-grade fevers noted but resolved. He remains on Primaxin. He remains on IV fluids. (2) Acute pancreatitis: Code(s): K85.90 - Acute pancreatitis without necrosis or infection, unspecified Status: Acute Assessment and Plan: As above. CT of the abdomen/Pelvis showed acute interstitial pancreatitis with prominent peripancreatic edema and fluid collection. Lipase was 1929 and trended down to 457. Repeat CT showing acute necrotic pancreatitis with interval worsening. Triglyceride level was 1295 and was treated appropriately. Repeat triglyceride level improved to 250. He remains on niacin. Fenofibrate started but can contribute to pancreatitis so changed to Gemfibrozil. Etiology of his pancreatitis most likely alcohol and/or hypertriglyceridemia. Lipase trended up to 887 but symptoms overall better. GI consulted and appreciate their input. Clear liquids started and now advanced to heart healthy. Stop IV fluids. Add low fat. (3) Hyponatremia: Code(s): E87.1 - Hypo-osmolality and hyponatremia Status: Acute Assessment and Plan: Na dropped to 127 today from 133. Suspect he is beginning to mobilize the 3rd spaced fluids. UOP3.5L so he is self diuresing. Will hold on lasix. Will monitor Na level but suspect this will improve on its own. (4) Hypertriglyceridemia: Code(s): E78.1 - Pure hyperglyceridemia Status: Acute Assessment and Plan: As above. (5) CHF (congestive heart failure): Code(s): I50.9 - Heart failure, unspecified Status: Acute Assessment and Plan: Imaging showing pulmonary edema with small left pleural effusion. BNP was 830. Echo showing EF of 35% with diastolic dysfunction and minimal valvular disease. Patient most likely has acute systolic and diastolic CHF. troponin was elevated to 0.045 on admission but from there trended downward felt related to above. EKG on admission showed sinus tachycardia possibly atrial flutter with a left bundle branch block. Was felt that he had a rate related left bundle branch block. Left bundle branch block however has persisted despite improvement of his heart rate. Bundle branch block is new when compared to a prior EKG. Patient tolerated intermittent Lasix well with good urine output. Clinically he appears euvolemic despite his positive fluid balance but still hypoxic. Suspect majority the fluid has 3rd spaced into his abdomen. He is followed by Cardiology. Continue Coreg and Entresto. Continue to follow. Consider low dose lasix but he is self-diuresing. (6) Cardiomyopathy: Code(s): I42.9 - Cardiomyopathy, unspecified Status: Acute Assessment and Plan: as above (7) LBBB (left bundle branch block): Code(s): I44.7 - Left bundle-branch block, unspecified Status: Acute Assessment and Plan: as above (8) Acute kidney injury: Code(s): N17.9 - Acute kidney failure, unspecified Status: Acute Assessment and Plan: Creatinine was 2.8 on admission. Likely secondary to dehydration, SIRS, NSAID use. CT abdomen and pelvis showed normal kidneys. TCK level was 207. Patient was adequately fluid-resuscitated. Creatinine has normalized. Continue to follow. (9) Elevated troponin: Code(s): R77.8 - Other specified abnormalities of plasma proteins Status: Acute Assessment and Plan: As above (10) Polysubstance abuse: C
[2022-06-16] MEDS: METOCLOPRAMIDE HCL INJ 10 MG/2 ML VIAL IV PUSH ×2 (18:09→23:06)
[2022-06-16] MEDS: PANTOPRAZOLE 40 MG TABLET PO (20:56)
[2022-06-16] MEDS: NIACIN SA 250 MG CAPSULE PO (20:57)
[2022-06-17] VITALS (12 sets, daily range): BP systolic 113–142; BP diastolic 68–81; PULSE 84–106; RESP 16–18; TEMP 35.5–37; O2SAT 95–99
[2022-06-17] MEDS: CENTRAL LINE FLUSH 10 ML IV PUSH ×3 (05:19→20:21)
[2022-06-17] MEDS: MORPHINE SULFATE (*CRX) 2 MG/ML INJ IV PUSH (05:21)
[2022-06-17 05:39] LABS: Alanine Aminotransferase 45 U/L (6-50); Albumin Level 2.8 g/dL (3.5-5.1); Alkaline Phosphatase 94 U/L (38-126); Anion Gap 5 mmol/L (8-16); Aspartate Amino Transferase 76 U/L (17-59); Bilirubin,Total 0.8 mg/dL (0.2-1.3); Blood Urea Nitrogen 5 mg/dL (9-20); Calcium 8.2 mg/dL (8.4-10.2); Carbon Dioxide 29 mmol/L (22-30); Chloride 96 mmol/L (98-107); Estimated CRCL calculation 192 ml/min; Estimated Glomerular Filt Rate > 60; Glucose 200 mg/dL (65-110); Lipase 1025 U/L (23-300); Magnesium 1.9 mg/dL (1.6-2.3); Phosphorus 3.3 mg/dL (2.5-4.5); Potassium 3.7 mmol/L (3.4-5.0); Sodium 130 mmol/L (137-145)
--- NOTE | 2022-06-17 09:05 | WPDGIPROGNO ---
Progress Note: A&P Assessment and Plan (1) Acute pancreatitis: Code(s): K85.90 - Acute pancreatitis without necrosis or infection, unspecified Status: Acute Assessment and Plan: Patient with acute pancreatitis appears to have necrotizing features on recent CT scan imaging. Patient clinically improving currently afebrile tolerating diet. But he does continue to have pain medication and a 3 required occasional pain medicines. Lipase elevated 1025 today. I would advise continued observation. He likely can increase activity on the room in floor. We may need to consider restricting diet depending on his pain response. Follow-up CT scanning should be performed at some point but if he improves this could wait for a week or 2. Should he deteriorate, then it should be performed sooner. (2) Alcohol use disorder: Status: Acute Assessment and Plan: Continued alcohol abstinence is essential for this patient. Subjective Date/time seen: 06/17/22 09:05 Patient alert comfortable this morning. Denies significant pain. However he has been taking oral pain medications on a regular basis. patient states he has tolerated regular diet low-fat diet. States he is up in room throughout the day. Review of Systems Review of Systems: Review of systems noncontributory. Exam Narrative: Physical exam reveals patient be alert. Vital signs stable. HEENT exam reveals no icterus. Lungs are clear to auscultation and percussion. Heart is without murmur or extra sounds. Abdomen bowel sounds present soft no localized tenderness no masses. Objective Data Vital Signs Vital Signs: Vital Signs - 24 hr 06/16/22 12:00 06/16/22 14:00 06/16/22 15:15 Temperature 97.2 F L Pulse Rate 93 79 Respiratory Rate 18 Blood Pressure 133/83 Pulse Oximetry 100 95 Oxygen Delivery Nasal Cannula Oxygen Flow Rate 3 06/16/22 16:00 06/16/22 20:56 06/16/22 21:23 Temperature 96.7 F L Pulse Rate 83 85 85 Respiratory Rate 18 Blood Pressure 123/73 Pulse Oximetry 97 Oxygen Delivery Oxygen Flow Rate 06/16/22 20:00 06/17/22 00:00 06/17/22 04:00 Temperature Pulse Rate 96 90 85 Respiratory Rate Blood Pressure Pulse Oximetry Oxygen Delivery Oxygen Flow Rate 06/17/22 05:52 Temperature 95.9 F L Pulse Rate 87 Respiratory Rate 18 Blood Pressure 130/75 Pulse Oximetry 99 Oxygen Delivery Oxygen Flow Rate Intake/Output Intake/Output: Intake & Output 06/14/22 06/15/22 06/16/22 06/17/22 23:59 23:59 23:59 23:59 Intake Total 5050 2160 2308 790 Output Total 8429 9570 7079 1000 [facility] -3425 -2740 -4717 -210 Meds/Results Medications: Active Medications Generic Name Dose Route Start Last Admin Trade Name Freq PRN Reason Stop Dose Admin Aspirin 325 mg 06/10/22 15:05 06/16/22 08:23 Aspirin 325 Mg Enteric Tablet PO 325 mg QAM ERYN Administration Calcium Carbonate 200 mg 06/10/22 18:14 06/10/22 19:55 Calcium Carbonate (Tums) 500 Mg (200 Mg Elemental) PO 200 mg Q6H PRN Administration Indigestion Carvedilol 6.25 mg 06/14/22 21:00 06/16/22 20:56 Carvedilol 6.25 Mg Tablet PO 6.25 mg Q12HR ERYN Administration Dextrose 12.5 gm 06/11/22 14:06 Dextrose 50% 25 Gm/50 Ml Syringe IV PUSH PRN PRN Hypoglycemia Protocol Enoxaparin Sodium 40 mg 06/10/22 18:00 06/16/22 17:21 Enoxaparin 40 Mg/0.4 Ml Syringe SUB-Q 40 mg Q24H ERYN Administration Gemfibrozil 300 mg 06/14/22 16:30 06/17/22 08:59 Gemfibrozil 300 Mg Tablet PO Not Given BIDAC ERYN Glucagon 1 mg 06/11/22 14:06 Glucagon For Inj 1 Mg Vial IM PRN PRN Hypoglycemia Protocol Glucose 15 gm 06/11/22 14:06 Glucose Oral Gel 15 Gm Of Glucse In 37.5 Gm Tube PO PRN PRN Hypoglycemia Protocol Imipenem/Cilastatin Sodium 500 100 mls @ 300 mls/hr 06/10/22 18:00 06/17/22 05:22 mg/ Sodium Chloride IVPB 300 ml
[2022-06-17] MEDS: SENNA/DOCUSATE SODIUM TABLET 1 TAB PO ×2 (09:10→20:21)
[2022-06-17] MEDS: polyethylene glycoL 3350 17 GM POWD.PACK PO (09:10)
[2022-06-17] MEDS: ASPIRIN 325 MG ENTERIC TABLET PO (09:10)
[2022-06-17] MEDS: SACUBITRIL/VALSARTAN 24-26 MG TABLET 1 TAB PO ×2 (09:10→20:21)
[2022-06-17] MEDS: PANTOPRAZOLE 40 MG TABLET PO ×2 (09:10→20:21)
[2022-06-17] MEDS: carvediloL 6.25 MG TABLET PO ×2 (09:11→20:20)
[2022-06-17 11:08] LABS: Hematocrit 30.1 % (42.0-52.0); Mean Corpuscular HGB Conc 33.2 g/dl (32-36); Mean Corpuscular Hemoglobin 31.8 pg (26-34); Mean Corpuscular Volume 95.9 fl (80-100); Mean Platelet Volume 10.5 fl (7.4-10.4); Platelet Count Result 287 k/mm3 (150-375); Red Blood Count 3.14 M/mm3 (4.6-6.20); Red Cell Distribution Width 15.4 % (11.5-14.5)
--- NOTE | 2022-06-17 12:11 | PM.IMPN ---
Progress Note: A&P Assessment and Plan (1) Sepsis: Code(s): A41.9 - Sepsis, unspecified organism Status: Acute Assessment and Plan: Patient presents with abdominal pain and found to have pancreatitis. CT of the abdomen showed acute interstitial pancreatitis which is most likely etiology if his sepsis/SIRS symptoms. Lactic acid was elevated but normalized with IV fluids. Was started on empiric antibiotics. Patient has not required any vasopressors. Repeat CT Abd now showing necrotic pancreatitis. Low-grade fevers noted but resolved. He remains on Primaxin. Will stop IV abx today since he completed a week of IV abx. (2) Acute pancreatitis: Code(s): K85.90 - Acute pancreatitis without necrosis or infection, unspecified Status: Acute Assessment and Plan: As above. CT of the abdomen/Pelvis showed acute interstitial pancreatitis with prominent peripancreatic edema and fluid collection. Lipase was 1929 and trended down to 457. Repeat CT showing acute necrotic pancreatitis with interval worsening. Triglyceride level was 1295 and was treated appropriately. Repeat triglyceride level improved to 250. He remains on niacin. Fenofibrate started but can contribute to pancreatitis so changed to Gemfibrozil. Etiology of his pancreatitis most likely alcohol and/or hypertriglyceridemia. Lipase is trending up past few days to 1025 but symptoms overall better. GI consulted and appreciate their input. Diet advanced to heart healthy, low fat diet. Lipase higher but patient relateively asymptomatic. Follow for now. May need Creon (3) Hyponatremia: Code(s): E87.1 - Hypo-osmolality and hyponatremia Status: Acute Assessment and Plan: Na dropped to 127 but better at 130 today. Suspect he is beginning to mobilize the 3rd spaced fluids. UOP7L yesterday so he is self diuresing. Contineu to follow. (4) Hypertriglyceridemia: Code(s): E78.1 - Pure hyperglyceridemia Status: Acute Assessment and Plan: As above. Continue niacin and gemfibrozil (5) CHF (congestive heart failure): Code(s): I50.9 - Heart failure, unspecified Status: Acute Assessment and Plan: Imaging showing pulmonary edema with small left pleural effusion. BNP was 830. Echo showing EF of 35% with diastolic dysfunction and minimal valvular disease. Patient most likely has acute systolic and diastolic CHF. troponin was elevated to 0.045 on admission but from there trended downward felt related to above. EKG on admission showed sinus tachycardia possibly atrial flutter with a left bundle branch block. Was felt that he had a rate related left bundle branch block. Left bundle branch block however has persisted despite improvement of his heart rate. Bundle branch block is new when compared to a prior EKG. Patient tolerated intermittent Lasix well with good urine output. Suspect majority the fluid has 3rd spaced into his abdomen. He is beginning to mobilize fluids with increased urine output. Cardiology following appreciate their input. Continue Coreg and Entresto. Continue to follow. (6) Acute kidney injury: Code(s): N17.9 - Acute kidney failure, unspecified Status: Acute Assessment and Plan: Creatinine was 2.8 on admission. Likely secondary to dehydration, SIRS, NSAID use. CT abdomen and pelvis showed normal kidneys. TCK level was 207. Patient was adequately fluid-resuscitated. Creatinine has normalized. Continue to follow. (7) Polysubstance abuse: Code(s): F19.10 - Other psychoactive substance abuse, uncomplicated Status: Acute Assessment and Plan: Patient has a history of polysubstance abuse. Urine drug screen was positive for benzodiazepines and cannabis . He has been positive for amphetamines in the past. LFTs noted to be elevated probably related to pancreatitis. Hepatitis panel and HIV were negative. LFTs noted. Follow (8) Cardiomyopathy:
[2022-06-17 12:48] LABS: Band Neutrophils Percent 12 % (0-6); Lymphocytes Absolute Manual 0.96 K/mm3 (1.1-4.5); Metamyelocytes Percent 1 %; Neutrophils Absolute Manual 10.92 K/mm3 (1.3-6.7); Neutrophils Percent Manual 79 % (46-73); Platelet Estimate Adequate (Adequate); Total Cells Counted 100
[2022-06-17 12:49] LABS: Anisocytosis 1+ (NORMAL)
[2022-06-17] MEDS: MAGNESIUM OXIDE 400 MG TABLET PO (14:52)
[2022-06-17] MEDS: ENOXAPARIN 40 MG/0.4 ML SYRINGE SUB-Q (17:44)
[2022-06-17] MEDS: NIACIN SA 250 MG CAPSULE PO (20:21)
[2022-06-17] MEDS: TEMAZEPAM (*CRX) 15 MG CAPSULE PO (23:00)
[2022-06-18] VITALS (11 sets, daily range): BP systolic 114–133; BP diastolic 75–81; PULSE 82–102; RESP 14–18; TEMP 36.7–37.7; O2SAT 97–100
[2022-06-18] MEDS: CENTRAL LINE FLUSH 10 ML IV PUSH ×3 (05:32→22:00)
[2022-06-18 06:00] LABS: Alanine Aminotransferase 40 U/L (6-50); Alkaline Phosphatase 89 U/L (38-126); Anion Gap 7 mmol/L (8-16); Aspartate Amino Transferase 47 U/L (17-59); Bilirubin,Total 0.9 mg/dL (0.2-1.3); Blood Urea Nitrogen 6 mg/dL (9-20); Calcium 8.4 mg/dL (8.4-10.2); Carbon Dioxide 25 mmol/L (22-30); Chloride 98 mmol/L (98-107); Estimated CRCL calculation 171 ml/min; Estimated Glomerular Filt Rate > 60; Glucose 242 mg/dL (65-110); Lipase 1041 U/L (23-300); Sodium 130 mmol/L (137-145)
[2022-06-18] MEDS: ASPIRIN 325 MG ENTERIC TABLET PO (08:41)
[2022-06-18] MEDS: carvediloL 6.25 MG TABLET PO (08:41)
[2022-06-18] MEDS: SACUBITRIL/VALSARTAN 24-26 MG TABLET 1 TAB PO ×2 (08:42→20:54)
[2022-06-18] MEDS: SENNA/DOCUSATE SODIUM TABLET 1 TAB PO ×2 (08:42→20:54)
[2022-06-18] MEDS: MAGNESIUM OXIDE 400 MG TABLET PO (08:42)
[2022-06-18] MEDS: PANTOPRAZOLE 40 MG TABLET PO ×2 (08:42→20:54)
--- NOTE | 2022-06-18 08:48 | WPDGIPROGNO ---
Progress Note: A&P Assessment and Plan (1) Acute pancreatitis: Code(s): K85.90 - Acute pancreatitis without necrosis or infection, unspecified Status: Acute Assessment and Plan: Patient with acute pancreatitis secondary to alcohol use. He does have some necrosis identified and most recent CT scan imaging. Clinically improving. Plan to continue low-fat diet. May discharge if pain controlled and tolerating diet. Would recommend follow-up CT scan of the abdomen in several weeks. Outpatient lipase should be performed weekly until we are sure it declines. He can follow-up electively in the GI office in 1-2 months. He should continue follow-up with primary care service as scheduled. (2) Alcohol use disorder: Status: Acute Assessment and Plan: Strict alcohol avoidance strongly encouraged. Alcohol rehab may benefit this patient. Subjective Date/time seen: 06/18/22 08:48 Patient feels much improved today. No longer requiring pain medications. Tolerating low-fat diet without difficulty. Passing bowel movements regularly. He had good response to laxatives. He denies any bleeding. No longer with fever. Review of Systems Review of Systems: Review of systems noncontributory. Exam Narrative: Physical exam reveals patient to be alert. Vital signs stable. HEENT exam is unremarkable. Patient is anicteric. Lungs are clear to auscultation and percussion. Heart is without murmur or extra sounds. Abdomen bowel sounds present soft nontender with no organomegaly. Objective Data Vital Signs Vital Signs: Vital Signs - 24 hr 06/17/22 09:11 06/17/22 12:00 06/17/22 14:00 Temperature 96.7 F L Pulse Rate 86 106 H 85 Respiratory Rate 16 Blood Pressure 113/68 Pulse Oximetry 97 Oxygen Delivery 06/17/22 16:00 06/17/22 18:00 06/17/22 20:20 Temperature Pulse Rate 84 84 Respiratory Rate Blood Pressure Pulse Oximetry 96 Oxygen Delivery 06/17/22 20:00 06/17/22 20:00 06/17/22 21:50 Temperature 98.6 F Pulse Rate 85 84 Respiratory Rate 18 Blood Pressure 142/81 H Pulse Oximetry 97 Oxygen Delivery Room Air 06/18/22 00:00 06/18/22 04:00 06/18/22 06:00 Temperature 98.4 F Pulse Rate 85 87 84 Respiratory Rate 18 Blood Pressure 133/79 Pulse Oximetry 98 Oxygen Delivery 06/18/22 08:41 Temperature Pulse Rate 88 Respiratory Rate Blood Pressure Pulse Oximetry Oxygen Delivery Intake/Output Intake/Output: Intake & Output 06/15/22 06/16/22 06/17/22 06/18/22 23:59 23:59 23:59 23:59 Intake Total 2160 2308 1970 600 Output Total 1455 7813 3466 [facility] -[phone] -[id number] -80 600 Meds/Results Medications: Active Medications Generic Name Dose Route Start Last Admin Trade Name Freq PRN Reason Stop Dose Admin Aspirin 325 mg 06/10/22 15:05 06/18/22 08:41 Aspirin 325 Mg Enteric Tablet PO 325 mg QAM ERYN Administration Calcium Carbonate 200 mg 06/10/22 18:14 06/10/22 19:55 Calcium Carbonate (Tums) 500 Mg (200 Mg Elemental) PO 200 mg Q6H PRN Administration Indigestion Carvedilol 6.25 mg 06/14/22 21:00 06/18/22 08:41 Carvedilol 6.25 Mg Tablet PO 6.25 mg Q12HR ERYN Administration Dextrose 12.5 gm 06/11/22 14:06 Dextrose 50% 25 Gm/50 Ml Syringe IV PUSH PRN PRN Hypoglycemia Protocol Enoxaparin Sodium 40 mg 06/10/22 18:00 06/17/22 17:44 Enoxaparin 40 Mg/0.4 Ml Syringe SUB-Q 40 mg Q24H ERYN Administration Gemfibrozil 300 mg 06/14/22 16:30 06/18/22 05:31 Gemfibrozil 300 Mg Tablet PO 300 mg BIDAC ERYN Administration Glucagon 1 mg 06/11/22 14:06 Glucagon For Inj 1 Mg Vial IM PRN PRN Hypoglycemia Protocol Glucose 15 gm 06/11/22 14:06 Glucose Oral Gel 15 Gm Of Glucse In 37.5 Gm Tube PO PRN PRN Hypoglycemia Protocol Dextrose 1,000 mls @ 50 mls/hr 06/11/22 14:06 Dextrose 5% 1,000 Ml IVPB PRN PRN
--- NOTE | 2022-06-18 09:56 | PCNFU ---
Nutrition Follow-Up Complete: Inadequate Oral Intake as related to pancreatitis as evidenced by clear liquid status Goal:Meet estimated nutritional needs. Pt is meeting goal Pt current nutrition is heart healthy, low fat, Ensure compact BID in place. Nutrition recommendation: Continue with current plan of care. Last recorded weight is 109.6 kg - stable at this time. Bowel Motility: +BM 06/18 Labs Reviewed:Hgb:10.1, HCT:30.1, Alb:3.0, NA:130, BUN:6, Cr:0.6, glu:242 Meds Noted: lovenox, protonix, reglan, miralax Skin: WNL Additional Notes: Pt diet advanced to heart healthy low fat, Ensure compact BID in place as well for an additional 220kcals, 9g protein per shake. Intake is good at 50-100% of meals, plus supplements, tolerating diet well. Agree with orders. Monitor intake, tolerance, wt, labs. Follow up in 7 days.
[2022-06-18 11:21] LABS: Basophils Absolute Auto 0.1 K/mm3 (0.0-0.1); Basophils Percent Auto 0.7 % (0.2-1.2); Eosinophils Absolute Auto 0.1 K/mm3 (0-0.3); Eosinophils Percent Auto 0.5 % (0-4.4); Hematocrit 31.1 % (42.0-52.0); Hemoglobin 10.3 g/dL (14.0-18.0); Immature Granulocyte Absolute 0.54 K/mm3 (0.00-0.031); Immature Granulocyte Percent A 4.6 % (0-0.5); Mean Corpuscular HGB Conc 33.1 g/dl (32-36); Mean Corpuscular Hemoglobin 31.6 pg (26-34); Mean Corpuscular Volume 95.4 fl (80-100); Mean Platelet Volume 10.5 fl (7.4-10.4); Monocytes Absolute Auto 0.9 K/mm3 (0.1-0.6); Neutrophils Absolute Auto 8.9 K/mm3 (1.3-6.7); Neutrophils Percent Auto 75.2 % (45.5-73.1); Platelet Count Result 343 k/mm3 (150-375); Red Blood Count 3.26 M/mm3 (4.6-6.20); Red Cell Distribution Width 15.1 % (11.5-14.5); White Blood Count 11.8 K/mm3 (4.5-10.0)
[2022-06-18] MEDS: INSULIN GLARGINE (*BKC) 100 UNITS/ML 8 UNITS SUB-Q (11:24)
[2022-06-18 11:51] LABS: Glucose Point of Care 307 mg/dl (65-105)
[2022-06-18 12:06] LABS: Hemoglobin A1C 6.2 % (<5.7)
[2022-06-18] MEDS: INSULIN ASPART (*BKC) 100 UNITS/ML SUB-Q ×3 (12:12→21:38)
--- NOTE | 2022-06-18 14:55 | PM.PNCARD ---
Progress Note: A&P Assessment and Plan (1) CHF (congestive heart failure): Code(s): I50.9 - Heart failure, unspecified Status: Acute Assessment and Plan: Likely related to alcohol cardiomyopathy: Will increase his carvedilol to 12.5 mg p.o. b.i.d.. Continue Entresto and other regimen (2) Alcohol use disorder: Status: Acute Assessment and Plan: Alcohol cessation imperative (3) LBBB (left bundle branch block): Code(s): I44.7 - Left bundle-branch block, unspecified Status: Acute (4) Cardiomyopathy: Code(s): I42.9 - Cardiomyopathy, unspecified Status: Acute Assessment and Plan: Will need close follow-up as an outpatient Subjective Date/time seen: 06/18/22 14:55 Interval history: 37yo male with hx of alcohol abuse, fatty liver, acute blood loss anemia, ADHD, and alcohol withdrawal seizures presented to the ED on 06/10/2022 with complains of abdominal pain and found to have acute pancreatitis. Date of service 06/18/2022: He feels better. No chest pain, shortness of breath. No abdominal pain Review of Systems Constitutional: Constitutional: Denies fever(s) Eyes: Eyes: Reports no additional eye complaints ENT: Denies epistaxis Cardiovascular: Cardiovascular: Denies chest pain, Denies pedal edema, Reports lightheadedness and Denies dyspnea Respiratory: Respiratory: Denies chest congestion and Denies dyspnea Gastrointestinal: Gastrointestinal: Reports abdominal pain and Denies hematochezia Genitourinary: Genitourinary: Denies hematuria Musculoskeletal: Musculoskeletal: Reports no additional musculoskeletal complaints Integumentary/Breasts: Skin/Breast: Reports system reviewed and no additional complaints, except as docu Neurologic: Reports system reviewed and no additional complaints, except as documented, Denies behavioral changes and Reports confusion Psychiatric: Psychiatric: Denies behavioral changes and Reports confusion Exam Narrative: Somewhat somnolent young man, not answering questions very readily, frequent hiccups. Const: General: cooperative, comfortable, no acute distress, confusion and uncomfortable; No healthy appearing Orientation/consciousness: oriented to person, patient oriented x3 and confusion HENMT: Mouth: Yes moist mucous membranes Eyes: Sclera: sclerae normal EOM: EOMs intact bilaterally Neck: Neck: supple and no JVD Thyroid: thyroid normal Carotids: no bruits Resp: Effort & Inspection: normal respiratory effort Auscultation: clear to auscultation bilaterally Other: Very frequent hiccups Cardio: Rate: regular rate and tachycardic Rhythm: regular rhythm Heart sounds: Gallop heart sound present and no murmurs Other: No gallop no murmur GI: Inspection: normal to inspection and distended Auscultation: normal bowel sounds and abnormal bowel sounds (Diminished bowel sounds) Other: Mildly distended apnea Skin: General skin exam: normal color and no rashes or lesions noted Neuro: General: oriented to person, patient oriented x3 and confusion Speech: No normal speech (Slowed speech) Other: Alert and oriented Extrem: General: no edema Right lower extremity: no edema Left lower extremity: no edema Other: No edema Psych: Appearance: grossly normal Mental Status: mental status grossly normal Speech and movement: Slowed speech present (Psych) Attitude: cooperative Other: withdrawn affect, somewhat lethargic (just given pain meds) Objective Data Vital Signs Vital Signs: Vital Signs - 24 hr 06/17/22 16:00 06/17/22 18:00 06/17/22 20:20 Temperature Pulse Rate 84 84 Respiratory Rate Blood Pressure Pulse Oximetry 96 Oxygen Delivery 06/17/22 20:00 06/17/22 20:00 06/17/22 21:50 Temperature 37.0 C Pulse Rate 85 84 Respiratory Rate 18 Blood Pressure 142/81 H Pulse Oximetry 97 Oxygen Delivery Room Air 06/18/22 00:00 06/18/22 04:00 06/18/22 06:00 Temperature
--- NOTE | 2022-06-18 15:12 | PM.IMPN ---
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 Glucose was reasonable but he was not eating much. As his diet improved, he is now having elevated glucose values. A1c 6.2 but does not represent current situation. Lantus givne today but glucose up to 300 now. Suspect related to pancreatic insufficiency from his necrotic pancreatitis. Start lantus at night. certified adapted physical educator here tomorrow. Machine Feed Operator to see. (2) Sepsis: Code(s): A41.9 - Sepsis, unspecified organism Status: Acute Assessment and Plan: Patient presents with abdominal pain and found to have pancreatitis. CT of the abdomen showed acute interstitial pancreatitis which is most likely etiology if his sepsis/SIRS symptoms. Lactic acid was elevated but normalized with IV fluids. Was started on empiric antibiotics. Patient has not required any vasopressors. Repeat CT Abd now showing necrotic pancreatitis. Low-grade fevers noted but resolved. He completed a course of Primaxin. Sepsis resolved (3) Acute pancreatitis: Code(s): K85.90 - Acute pancreatitis without necrosis or infection, unspecified Status: Acute Assessment and Plan: As above. CT of the abdomen/Pelvis showed acute interstitial pancreatitis with prominent peripancreatic edema and fluid collection. Lipase was 1929 and trended down to 457. Repeat CT showing acute necrotic pancreatitis with interval worsening. Triglyceride level was 1295 and was treated appropriately. Repeat triglyceride level improved to 250. He remains on niacin. Fenofibrate started but can contribute to pancreatitis so changed to Gemfibrozil. Etiology of his pancreatitis most likely alcohol and/or hypertriglyceridemia. Lipase is trending up past few days to 1041 but flattening out. His symptoms overall much better. GI consulted and appreciate their input. Diet advanced to low fat and (now) diab diet. Follow for now. May need Creon since he is showing evidence of pancreatic insufficiency. (4) Hyponatremia: Code(s): E87.1 - Hypo-osmolality and hyponatremia Status: Acute Assessment and Plan: Na dropped to 127 but better and stable at 130 today. Suspect he is beginning to mobilize the 3rd spaced fluids. He is self diuresing. Continue to follow. (5) Hypertriglyceridemia: Code(s): E78.1 - Pure hyperglyceridemia Status: Acute Assessment and Plan: As above. Continue niacin and gemfibrozil (6) CHF (congestive heart failure): Code(s): I50.9 - Heart failure, unspecified Status: Acute Assessment and Plan: Imaging showing pulmonary edema with small left pleural effusion. BNP was 830. Echo showing EF of 35% with diastolic dysfunction and minimal valvular disease. Patient most likely has acute systolic and diastolic CHF. troponin was elevated to 0.045 on admission but from there trended downward felt related to above. EKG on admission showed sinus tachycardia possibly atrial flutter with a left bundle branch block. Was felt that he had a rate related left bundle branch block. Left bundle branch block however has persisted despite improvement of his heart rate. Bundle branch block is new when compared to a prior EKG. Patient tolerated intermittent Lasix well with good urine output. Suspect majority of the fluid has 3rd spaced into his abdomen. He is beginning to mobilize fluids with increased urine output. Cardiology following appreciate their input. Continue Coreg and Entresto. Continue to follow. (7) Acute kidney injury: Code(s): N17.9 - Acute kidney failure, unspecified Status: Acute Assessment and Plan: Creatinine was 2.8
[2022-06-18 16:51] LABS: Glucose Point of Care 357 mg/dl (65-105)
[2022-06-18 20:21] LABS: Glucose Point of Care 274 mg/dl (65-105)
[2022-06-18] MEDS: NIACIN SA 250 MG CAPSULE PO (20:54)
[2022-06-18] MEDS: carvediloL 12.5 MG TABLET PO (20:56)
[2022-06-18] MEDS: INSULIN GLARGINE (*BKC) 100 UNITS/ML 16 UNITS SUB-Q (20:57)
[2022-06-18] MEDS: TEMAZEPAM (*CRX) 15 MG CAPSULE PO (21:21)
[2022-06-19] VITALS: PULSE 80
[2022-06-19 04:00] VITALS: PULSE 82
[2022-06-19 05:40] VITALS: BP 117/69; PULSE 82; RESP 18; TEMP 37.4; O2SAT 97
[2022-06-19] MEDS: CENTRAL LINE FLUSH 10 ML IV PUSH ×2 (05:40→14:25)
[2022-06-19 05:46] LABS: Alanine Aminotransferase 53 U/L (6-50); Albumin Level 3.3 g/dL (3.5-5.1); Alkaline Phosphatase 94 U/L (38-126); Anion Gap 9 mmol/L (8-16); Aspartate Amino Transferase 67 U/L (17-59); Bilirubin,Total 0.9 mg/dL (0.2-1.3); Blood Urea Nitrogen 9 mg/dL (9-20); Calcium 8.7 mg/dL (8.4-10.2); Carbon Dioxide 23 mmol/L (22-30); Chloride 98 mmol/L (98-107); Estimated CRCL calculation 149 ml/min; Estimated Glomerular Filt Rate > 60; Glucose 260 mg/dL (65-110); Lipase 1095 U/L (23-300); Potassium 4.2 mmol/L (3.4-5.0); Sodium 130 mmol/L (137-145)
[2022-06-19 07:57] LABS: Glucose Point of Care 314 mg/dl (65-105)
--- NOTE | 2022-06-19 07:57 | WPDGIPROGNO ---
Progress Note: A&P Assessment and Plan (1) Acute pancreatitis: Code(s): K85.90 - Acute pancreatitis without necrosis or infection, unspecified Status: Acute Assessment and Plan: Patient with improving acute pancreatitis. Recent CT scan suggested some necrosis. Plan supportive care. Low-fat diet. Strict alcohol avoidance. Consider follow-up CT scan in several weeks. Patient may be discharged from GI perspective at this time. 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 Continue close follow-up by primary care service after discharge encouraged. (3) Alcohol use disorder: Status: Acute Assessment and Plan: Patient with significant alcoholism. Alcohol avoidance strongly encouraged consider alcohol rehab if necessary. Subjective Date/time seen: 06/19/22 07:57 Patient alert comfortable this morning. Tolerating diet. Denies abdominal pain. Has had some difficulty with glucose control. Anxious to go home. Review of Systems Review of Systems: Review of systems noncontributory. Exam Narrative: Physical exam reveals patient to be alert. Vital signs stable. HEENT exam is unremarkable. Patient anicteric. Lungs are clear. Heart without murmur. Abdomen bowel sounds present soft nontender with no organomegaly. Objective Data Vital Signs Vital Signs: Vital Signs - 24 hr 06/18/22 08:41 06/18/22 08:00 06/18/22 08:00 Temperature Pulse Rate 88 102 H Respiratory Rate Blood Pressure Pulse Oximetry 98 Oxygen Delivery Room Air 06/18/22 14:00 06/18/22 12:00 06/18/22 16:00 Temperature 98.0 F Pulse Rate 90 82 86 Respiratory Rate 14 Blood Pressure 114/81 Pulse Oximetry 100 Oxygen Delivery 06/18/22 20:56 06/18/22 20:00 06/18/22 22:00 Temperature 99.9 F H Pulse Rate 90 85 84 Respiratory Rate 17 Blood Pressure 127/75 Pulse Oximetry 97 Oxygen Delivery 06/19/22 00:00 06/19/22 04:00 06/19/22 05:40 Temperature 99.3 F Pulse Rate 80 82 82 Respiratory Rate 18 Blood Pressure 117/69 Pulse Oximetry 97 Oxygen Delivery Intake/Output Intake/Output: Intake & Output 06/16/22 06/17/22 06/18/22 06/19/22 23:59 23:59 23:59 23:59 Intake Total 2308 1970 2100 100 Output Total 7024 2049 Balance -4717 -80 2100 100 Meds/Results Medications: Active Medications Generic Name Dose Route Start Last Admin Trade Name Freq PRN Reason Stop Dose Admin Aspirin 325 mg 06/10/22 15:05 06/18/22 08:41 Aspirin 325 Mg Enteric Tablet PO 325 mg QAM ERYN Administration Calcium Carbonate 200 mg 06/10/22 18:14 06/10/22 19:55 Calcium Carbonate (Tums) 500 Mg (200 Mg Elemental) PO 200 mg Q6H PRN Administration Indigestion Carvedilol 12.5 mg 06/18/22 21:00 06/18/22 20:56 Carvedilol 12.5 Mg Tablet PO 12.5 mg Q12HR ERYN Administration Dextrose 12.5 gm 06/11/22 14:06 Dextrose 50% 25 Gm/50 Ml Syringe IV PUSH PRN PRN Hypoglycemia Protocol Enoxaparin Sodium 40 mg 06/10/22 18:00 06/18/22 16:47 Enoxaparin 40 Mg/0.4 Ml Syringe SUB-Q Not Given Q24H ERYN Gemfibrozil 300 mg 06/14/22 16:30 06/19/22 07:50 Gemfibrozil 300 Mg Tablet PO Not Given BIDAC ERYN Glucagon 1 mg 06/11/22 14:06 Glucagon For Inj 1 Mg Vial IM PRN PRN Hypoglycemia Protocol Glucose 15 gm 06/11/22 14:06 Glucose Oral Gel 15 Gm Of Glucse In 37.5 Gm Tube PO PRN PRN Hypoglycemia Protocol Dextrose 1,000 mls @ 50 mls/hr 06/11/22 14:06 Dextrose 5% 1,000 Ml IVPB PRN PRN Hypoglycemia Protocol Insulin Aspart 3 - 6 units 06/18/22 17:00 06/18/22 17:33 Insulin Aspar
[2022-06-19] MEDS: ASPIRIN 325 MG ENTERIC TABLET PO (08:59)
[2022-06-19 09:00] VITALS: PULSE 76
[2022-06-19] MEDS: SACUBITRIL/VALSARTAN 24-26 MG TABLET 1 TAB PO (09:00)
[2022-06-19] MEDS: MAGNESIUM OXIDE 400 MG TABLET PO (09:00)
[2022-06-19] MEDS: carvediloL 12.5 MG TABLET PO (09:00)
[2022-06-19] MEDS: PANTOPRAZOLE 40 MG TABLET PO (09:00)
[2022-06-19] MEDS: INSULIN ASPART (*BKC) 100 UNITS/ML SUB-Q ×2 (09:01→12:40)
[2022-06-19 09:15] VITALS: O2SAT 95
[2022-06-19 10:22] LABS: Basophils Absolute Auto 0.1 K/mm3 (0.0-0.1); Basophils Percent Auto 0.8 % (0.2-1.2); Eosinophils Absolute Auto 0.1 K/mm3 (0-0.3); Eosinophils Percent Auto 0.6 % (0-4.4); Hematocrit 33.4 % (42.0-52.0); Hemoglobin 10.9 g/dL (14.0-18.0); Immature Granulocyte Absolute 0.48 K/mm3 (0.00-0.031); Lymphocytes Absolute Auto 1.54 K/mm3 (0.9-3.2); Lymphocytes Percent Auto 12.9 % (18.3-44.2); Mean Corpuscular HGB Conc 32.6 g/dl (32-36); Mean Corpuscular Hemoglobin 31.4 pg (26-34); Mean Corpuscular Volume 96.3 fl (80-100); Mean Platelet Volume 10.2 fl (7.4-10.4); Monocytes Absolute Auto 0.9 K/mm3 (0.1-0.6); Monocytes Percent Auto 7.4 % (2.6-8.5); Neutrophils Absolute Auto 8.9 K/mm3 (1.3-6.7); Neutrophils Percent Auto 74.3 % (45.5-73.1); Platelet Count Result 422 k/mm3 (150-375); Red Blood Count 3.47 M/mm3 (4.6-6.20); Red Cell Distribution Width 15.3 % (11.5-14.5)
--- NOTE | 2022-06-19 10:27 | PM.PNCARD ---
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 (2) Alcohol use disorder: Status: Acute Assessment and Plan: Alcohol cessation imperative (3) LBBB (left bundle branch block): Code(s): I44.7 - Left bundle-branch block, unspecified Status: Acute (4) Cardiomyopathy: Code(s): I42.9 - Cardiomyopathy, unspecified Status: Acute Assessment and Plan: Will need close follow-up as an outpatient Subjective Date/time seen: 06/19/22 10:27 Interval history: 37yo male with hx of alcohol abuse, fatty liver, acute blood loss anemia, ADHD, and alcohol withdrawal seizures presented to the ED on 06/10/2022 with complains of abdominal pain and found to have acute pancreatitis. Date of service 06/18/2022: He feels better. No chest pain, shortness of breath. No abdominal pain Date of service 06/19/2022: From a cardiac perspective he feels fine and denies any chest pain, shortness of breath, syncope, presyncope. Review of Systems Constitutional: Constitutional: Denies fever(s) Eyes: Eyes: Reports no additional eye complaints ENT: Denies epistaxis Cardiovascular: Cardiovascular: Denies chest pain, Denies pedal edema, Reports lightheadedness and Denies dyspnea Respiratory: Respiratory: Denies chest congestion and Denies dyspnea Gastrointestinal: Gastrointestinal: Reports abdominal pain and Denies hematochezia Genitourinary: Genitourinary: Denies hematuria Musculoskeletal: Musculoskeletal: Reports no additional musculoskeletal complaints Integumentary/Breasts: Skin/Breast: Reports system reviewed and no additional complaints, except as docu Neurologic: Reports system reviewed and no additional complaints, except as documented, Denies behavioral changes and Reports confusion Psychiatric: Psychiatric: Denies behavioral changes and Reports confusion Exam Narrative: Somewhat somnolent young man, not answering questions very readily, frequent hiccups. Const: General: cooperative, comfortable, no acute distress, confusion and uncomfortable; No healthy appearing Orientation/consciousness: oriented to person, patient oriented x3 and confusion HENMT: Mouth: Yes moist mucous membranes Eyes: Sclera: sclerae normal EOM: EOMs intact bilaterally Neck: Neck: supple and no JVD Thyroid: thyroid normal Carotids: no bruits Resp: Effort & Inspection: normal respiratory effort Auscultation: clear to auscultation bilaterally Other: Very frequent hiccups Cardio: Rate: regular rate and tachycardic Rhythm: regular rhythm Heart sounds: Gallop heart sound present and no murmurs Other: No gallop no murmur GI: Inspection: normal to inspection and distended Auscultation: normal bowel sounds and abnormal bowel sounds (Diminished bowel sounds) Other: Mildly distended apnea Skin: General skin exam: normal color and no rashes or lesions noted Neuro: General: oriented to person, patient oriented x3 and confusion Speech: No normal speech (Slowed speech) Other: Alert and oriented Extrem: General: no edema Right lower extremity: no edema Left lower extremity: no edema Other: No edema Psych: Appearance: grossly normal Mental Status: mental status grossly normal Speech and movement: Slowed speech present (Psych) Attitude: cooperative Other: withdrawn affect, somewhat lethargic (just given pain meds) Objective Data Vital Signs Vital Signs: Vital Signs - 24 hr 06/18/22 14:00 06/18/22 12:00 06/18/22 16:00 Temperature 36.7 C Pulse Rate 90 82 86 Respiratory Rate 14 Blood Pressure 114/81 Pulse Oximetry 100 Oxygen Delivery 06/18/22 20:56 06/18/22 20:00 06/18/22 22:00 Temperature 37.7 C H Pulse Rate 90 85 84 Respiratory Rate 17 Blood Pressure
[2022-06-19 11:02] VITALS: BMI 28.8
[2022-06-19 11:31] LABS: Glucose Point of Care 259 mg/dl (65-105)
[2022-06-19 12:00] VITALS: PULSE 84
--- NOTE | 2022-06-19 13:10 | PM.DS ---
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: Code(s): K86.89 - Other specified diseases of pancreas; E08.9 - Diabetes mellitus due to underlying condition without complications Status: Acute (2) Sepsis: Code(s): A41.9 - Sepsis, unspecified organism Status: Acute (3) Acute pancreatitis: Code(s): K85.90 - Acute pancreatitis without necrosis or infection, unspecified Status: Acute (4) Hyponatremia: Code(s): E87.1 - Hypo-osmolality and hyponatremia Status: Acute (5) Hypertriglyceridemia: Code(s): E78.1 - Pure hyperglyceridemia Status: Acute (6) CHF (congestive heart failure): Code(s): I50.9 - Heart failure, unspecified Status: Acute (7) Acute kidney injury: Code(s): N17.9 - Acute kidney failure, unspecified Status: Acute (8) Polysubstance abuse: Code(s): F19.10 - Other psychoactive substance abuse, uncomplicated Status: Acute (9) Cardiomyopathy: Code(s): I42.9 - Cardiomyopathy, unspecified Status: Acute (10) LBBB (left bundle branch block): Code(s): I44.7 - Left bundle-branch block, unspecified Status: Acute (11) Elevated troponin: Code(s): R77.8 - Other specified abnormalities of plasma proteins Status: Acute (12) Thrombocytopenia: Code(s): D69.6 - Thrombocytopenia, unspecified Status: Acute (13) Alcoholism: Code(s): F10.20 - Alcohol dependence, uncomplicated Status: Acute DS: Summary Hospital Course Reason for hospitalization: HPI:This is a 37-year-old male with history of alcohol abuse (he reports no alcohol intake for the past month), fatty and alcoholic liver disease, and duodenal ulcers who presented to the emergency department via EMS from urgent care for evaluation of shortness of breath, abdominal pain, and difficulties urinating. He has not felt well for 3 or 4 days with several symptoms including abdominal bloating, hiccups, nausea with dry heaves, and poor oral intake. A couple of days ago he noticed that he was having difficulties urinating and he estimates he has only urinated 3 mL in the past couple of days. He has diffuse abdominal pain that he has difficulties describing but it is severe, 8/10 on arrival to ER. He has gotten progressively more weak and he has not really been out of bed in the last 48 hours. Today he was feeling very short of breath and describes what sounds like [place] respirations, which led him to urgent care. He feels extremely weak when standing and he had to be wheeled into urgent care today. He was immediately brought to the ER via EMS where he was found to be septic with an acute kidney injury and lactic acidosis. CT of the abdomen and pelvis showed evidence of pancreatitis and he is being admitted in this setting. Hospital Course: # sepsis: Patient presents with abdominal pain and found to have pancreatitis. CT of the abdomen showed acute interstitial pancreatitis which most likely etiology of his sepsis/ SIRS symptoms. Lactic acid was significantly elevated on arrival at 10 but normalized with IV fluids. He was started empirically on antibiotics. He did not require any vasopressor. Repeat CT abdomen showing signs of necrotizing pancreatitis 06/14/2022 with low-grade fevers noted but resolved. He completed course of Primaxin. Sepsis resolved by the time of discharge # acute pancreatitis: As above.? CT of the abdomen/Pelvis showed acute interstitial pancreatitis with prominent peripancreatic edema and fluid collection.? Lipase was 1929 and trended down to 457. Repeat CT showing acute necrotic pancreatitis with interval worsening.? Triglyceride level was 1295 and was treated appropriatelyWith IV insulin and start of gemfibrozil and niacin.? Repeat triglyceride level improved
== END 2022-06-19 16:20 | disposition home or self-care (01) | DRG 871 ==
LOC: ANHED 13:26 → ANHICU 14:16 → ANH3MEDSUR 06-15 11:50
PROVIDERS: Internal Medicine; Nurse Practitioner Family; Admitting Provider Family Medicine; Emergency Provider Emergency Medicine; Visit Provider Internal Medicine
DX: A41.9 Sepsis, unspecified organism (principal); I50.41 Acute combined systolic (congestive) and diastolic (congestive) heart failure; K85.21 Alcohol induced acute pancreatitis with uninfected necrosis; N17.9 Acute kidney failure, unspecified; I42.0 Dilated cardiomyopathy; I42.6 Alcoholic cardiomyopathy; K56.7 Ileus, unspecified; E87.1 Hypo-osmolality and hyponatremia; R65.20 Severe sepsis without septic shock; D69.6 Thrombocytopenia, unspecified; K86.89 Other specified diseases of pancreas; E08.9 Diabetes mellitus due to underlying condition without complications; K70.9 Alcoholic liver disease, unspecified; K76.0 Fatty (change of) liver, not elsewhere classified; F10.20 Alcohol dependence, uncomplicated; Y90.0 Blood alcohol level of less than 20 mg/100 ml; F19.10 Other psychoactive substance abuse, uncomplicated; I44.7 Left bundle-branch block, unspecified; D64.89 Other specified anemias; R77.8 Other specified abnormalities of plasma proteins; E86.0 Dehydration; E86.9 Volume depletion, unspecified; E87.8 Other disorders of electrolyte and fluid balance, not elsewhere classified; E78.1 Pure hyperglyceridemia; F90.9 Attention-deficit hyperactivity disorder, unspecified type; Z86.16 Personal history of COVID-19; Z87.11 Personal history of peptic ulcer disease
CPT/HCPCS: 36415; 36569; 36600; 71045; 71046; 71250; 71260; 74019; 74176; 74177; 76705; 76775; 80048; 80053; 80074; 80307; 81001; 82550; 82570; 82805; 82948; 83036; 83605; 83690; 83735; 83880; 84100; 84132; 84145; 84300; 84478; 84484; 85025; 85055; 85380; 85610; 85730; 86140; 86703; 87040; 87086; 93005; 96361; 96374; 96375; 99215; 99285; A9270; C1751; C8929; C9113; G0432; G0463; J0610; J0743; J1170; J1650; J1815; J1940; J2270; J2405; J2765; J3475; J3480; J7030; J7040; J7042; J7050; J7060; J7120; Q9957; Q9967